=== PATIENT | female | born 1945 | race Caucasian/White ===

== ENCOUNTER → 2018-04-19 | Outpatient (CLI) | payer OTHER ==
[~2018-04-19] MED LIST: ACIDOPHILUS; ALBU90OI6 INH; ALBU90OI61 INH; AZIT500 PO; Aspir 8181 MG PO; BUME1 PO; BUME2 PO; CALCAVITD; CALCAVITD PO; CLON.1; CLON.1 PO; CLOP75 PO; DIPATR PO; ECONAZOLE 1% CREAM TOP; FISH OIL 1200 MG PO; FLUO20 PO; FLUT110OIA IH; FURO20 PO; FURO40 PO; GABA100; GABA100 PO; GABA300 PO; HYDPAM50 PO; HYDROXYZINE; INS70/30PN SC; INSDET100; INSDET100 SC; INSDET100 SQ; INSDET100 SUBQ; INSLI100I SC; INSLI100I SUBQ; INSULANI SC; K-Dur20 MEQ PO; KETO15TC TOP; LEVSOD100 PO; LOSA25 PO; METO10 PO; METO25ER PO; MORP15ER PO; MULVITB&C PO; MULVITMINF PO; OLME20 PO; OLME5TAB PO; OMEP20ER PO; Omeprazole20 M1; POTASSIUM; PRAV20 PO; PRAV40 PO; PRED10 PO; PRED20 PO; PROM25 PO; PROM25S PR; PROZAC PO; Pravachol40 MG PO; RAME8 PO; SPIR25 PO; TORSE20 PO; VIT D 1000 UNIT PO; ZOLP12.5 PO; Zofran4 MG PO
[2018-04-19 16:34] LABS: Bilirubin, Urine Neg (Neg); Blood, Urine Neg (Neg); Glucose Qualitative, Urine 3+ (Neg); Ketones, Urine 1+ (Neg); Leukocyte Esterase, Urine 2+ (Neg); Nitrite, Urine Neg (Neg); Protein, Urine 3+ (Neg); Urobilinogen, Urine NORM (Normal)
[2018-04-19 16:52] LABS: Appearance, Urine Clear (Clear); Color, Urine Yellow (P-Yellow)
[2018-04-19 16:54] LABS: Bacteria Many /hpf; Squamous Epithelial Cells Mod /hpf (Few)
== END | disposition home or self-care (01) ==
LOC: LAB SHORT 16:16 → LAB 16:16
PROVIDERS: Internal Medicine Hematology & Oncology
DX: N39.0 Urinary tract infection, site not specified (principal)
CPT/HCPCS: 81001; 87086

== ENCOUNTER → 2018-05-31 | Outpatient (CLI) | payer OTHER ==
[2018-06-01 10:28] LABS: U Amphetamine Screen Not Detected; U Barbituate Screen Not Detected; U Benzodiazapine Screen Not Detected; U Buprenorphine Screen Not Detected; U Cannabinoids Screen Not Detected; U Cocaine Screen Not Detected; U Methadone Screen Not Detected; U Methamphetamine Screen Not Detected; U Opiates Screen DETECTED; U Oxycodone Screen Not Detected; U Phencyclidine Screen Not Detected; U Propoxyphene Screen Not Detected
== END | disposition home or self-care (01) ==
LOC: LAB SHORT 16:45 → LAB 16:45
PROVIDERS: Internal Medicine Hematology & Oncology
DX: Z51.81 Encounter for therapeutic drug level monitoring (principal); F11.20 Opioid dependence, uncomplicated; Z79.899 Other long term (current) drug therapy
CPT/HCPCS: G0480

== ENCOUNTER → 2018-08-04 | Outpatient (CLI) | payer OTHER ==
[2018-08-04 12:38] LABS: Source, Urine Voided
[2018-08-04 12:57] LABS: Bilirubin, Urine Neg (Neg); Blood, Urine Neg (Neg); Glucose Qualitative, Urine Neg (Neg); Ketones, Urine Neg (Neg); Leukocyte Esterase, Urine 3+ (Neg); Nitrite, Urine Neg (Neg); Protein, Urine 3+ (Neg); Specific Gravity, Urine 1.015 (1.003-1.022); Urobilinogen, Urine NORM (Normal)
[2018-08-04 13:12] LABS: Appearance, Urine Hazy (Clear); Color, Urine Yellow (P-Yellow)
[2018-08-04 13:16] LABS: Red Blood Cells, Urine 0-2 /hpf (0-2)
[2018-08-04 13:17] LABS: Bacteria Mod /hpf; Squamous Epithelial Cells Mod /hpf (Few)
[2018-08-04 13:41] LABS: U Amphetamine Screen Not Detected; U Barbituate Screen Not Detected; U Benzodiazapine Screen Not Detected; U Buprenorphine Screen Not Detected; U Cannabinoids Screen Not Detected; U Cocaine Screen Not Detected; U Methadone Screen Not Detected; U Methamphetamine Screen Not Detected; U Opiates Screen DETECTED; U Oxycodone Screen Not Detected; U Phencyclidine Screen Not Detected; U Propoxyphene Screen Not Detected
== END | disposition home or self-care (01) ==
LOC: LAB SHORT 12:35 → LAB 12:35
PROVIDERS: Internal Medicine Hematology & Oncology
DX: Z51.81 Encounter for therapeutic drug level monitoring (principal); N39.0 Urinary tract infection, site not specified; Z79.899 Other long term (current) drug therapy
CPT/HCPCS: 81001; 87086

== ENCOUNTER 2019-01-19 09:03 | Day surgery (SDC) | payer OTHER ==
[~2019-01-19] VITALS: Ht 165.1 cm; Wt 82.9 kg
[~2019-01-19 09:03] MED LIST changes: +ATEN25 PO; +B-COMPLEX WITH1 EAC1 PO; +Humalog Mi100 UNIT/4; +Hydroxyzine HCl50 MG; +LOSA50 PO; +Promethazine12.5 M1 PO; +TOUJEO SOL300 UNIT/1; +VITAMIN D35000 UNIT PO
[2019-01-19] MEDS ORDERED: MORP15ER (09:34)
== END 2019-01-19 11:44 | disposition home or self-care (01) ==
LOC: ORSCSDS 09:03
PROVIDERS: Internal Medicine Gastroenterology
PROC: 0DB98ZX Excision of Duodenum, Via Natural or Artificial Opening Endoscopic, Diagnostic (ICD-10-PCS; principal; 2019-01-19 10:15)
PROC: 0DBE8ZX Excision of Large Intestine, Via Natural or Artificial Opening Endoscopic, Diagnostic (ICD-10-PCS; principal; 2019-01-19 10:15)
PROC: 0DBL8ZX Excision of Transverse Colon, Via Natural or Artificial Opening Endoscopic, Diagnostic (ICD-10-PCS; principal; 2019-01-19 10:15)
PROC: 0DB58ZX Excision of Esophagus, Via Natural or Artificial Opening Endoscopic, Diagnostic (ICD-10-PCS; principal; 2019-01-19 10:15)
PROC: 0DB68ZX Excision of Stomach, Via Natural or Artificial Opening Endoscopic, Diagnostic (ICD-10-PCS; principal; 2019-01-19 10:15)
DX: R19.7 Diarrhea, unspecified (principal); D12.3 Benign neoplasm of transverse colon; R63.4 Abnormal weight loss; R11.2 Nausea with vomiting, unspecified; B37.81 Candidal esophagitis; K57.30 Diverticulosis of large intestine without perforation or abscess without bleeding; E11.40 Type 2 diabetes mellitus with diabetic neuropathy, unspecified; I25.10 Atherosclerotic heart disease of native coronary artery without angina pectoris; E78.5 Hyperlipidemia, unspecified; I10 Essential (primary) hypertension; G47.33 Obstructive sleep apnea (adult) (pediatric); E11.59 Type 2 diabetes mellitus with other circulatory complications; Z86.73 Personal history of transient ischemic attack (TIA), and cerebral infarction without residual deficits; Z79.899 Other long term (current) drug therapy; Z79.4 Long term (current) use of insulin; Z79.82 Long term (current) use of aspirin
CPT/HCPCS: 82947; 88305; 88342; J2704; J7120

== ENCOUNTER → 2019-05-15 | Outpatient (CLI) | payer OTHER ==
[~2019-05-15] MED LIST changes: +MORP15ER
[2019-05-22 12:44] LABS: FATS, NEUTRAL Normal (.); FATS, TOTAL Normal (.)
== END | disposition home or self-care (01) ==
LOC: LAB SHORT 13:25 → OLS 13:25 → LAB FUT 05-15 11:45
PROVIDERS: Internal Medicine Gastroenterology
DX: R63.4 Abnormal weight loss (principal); R19.7 Diarrhea, unspecified
CPT/HCPCS: 82656; 82705; 84302; 84999

== ENCOUNTER → 2019-05-15 | Outpatient (CLI) | payer OTHER ==
[2019-05-16 15:22] LABS: Adenovirus F 40/41 Not Detected (NOT DETECT); Astrovirus Not Detected (NOT DETECT); Campylobacter Sp Not Detected (NOT DETECT); Cryptosporidium Not Detected (NOT DETECT); Cyclospora Cayetanensis Not Detected (NOT DETECT); E. Coli O157 Not Detected (NOT DETECT); Entamoeba Histolytica Not Detected (NOT DETECT); Enteroaggregative E. coli-EAEC Not Detected (NOT DETECT); Enteropathogenic E. coli-EPEC Not Detected (NOT DETECT); Enterotoxigenic E. coli-ETEC Not Detected (NOT DETECT); Giardia Lamblia Not Detected (NOT DETECT); Norovirus GI/GII Not Detected (NOT DETECT); Plesiomonas Shigelloides Not Detected (NOT DETECT); Rotavirus A Not Detected (NOT DETECT); Salmonella Sp Not Detected (NOT DETECT); Sapovirus Not Detected (NOT DETECT); Shiga Toxin-prod E. coli-STEC Not Detected (NOT DETECT); Shigella/Enteroin E. coli-EIEC Not Detected (NOT DETECT); Vibrio Cholerae Not Detected (NOT DETECT); Vibrio Sp Not Detected (NOT DETECT); Yersinia Enterocolitica Not Detected (NOT DETECT)
== END ==
LOC: LAB FUT 14:10 → OLS 20:40 → LAB SHORT 20:40
PROVIDERS: Internal Medicine Gastroenterology
DX: R19.7 Diarrhea, unspecified (principal); R63.4 Abnormal weight loss
CPT/HCPCS: 0097U

== ENCOUNTER → 2019-05-21 | Outpatient (CLI) | payer OTHER | END | disposition home or self-care (01) | LOC: LAB SHORT 05-18 03:00 → OLS 03:00 → LAB SHORT 03:00 | PROVIDERS: Internal Medicine Gastroenterology | DX: R19.7 Diarrhea, unspecified (principal); R63.4 Abnormal weight loss | CPT/HCPCS: 82710 ==

== ENCOUNTER 2019-06-21 10:57 | Inpatient (IN) | payer OTHER ==
[~2019-06-21] VITALS: Ht 167.6 cm; Wt 84.1 kg
[~2019-06-21 10:57] MED LIST changes: +B Complex-Foli1 EACH PO; -B-COMPLEX WITH1 EAC1 PO; -Humalog Mi100 UNIT/4; +Humalog100 UNIT/1 SC; -TOUJEO SOL300 UNIT/1; +TOUJEO SOL300 UNIT/1 SC; +VITAMIN D31000 UNI1 PO; -VITAMIN D35000 UNIT PO
[2019-06-21 11:27] LABS: BASOPHILS ABSOLUTE AUTO 0.18 K/mm3 (0.00-0.23); BASOPHILS PERCENT AUTO 1 % (0-2); EOSINOPHILS ABSOLUTE AUTO 0.36 K/mm3 (0.00-0.68); EOSINOPHILS PERCENT AUTO 2 % (0-6); Hematocrit 50.7 % (33.0-51.0); Hemoglobin 16.7 g/dL (11.5-16.0); IMMATURE GRAN ABSOLUTE AUTO 0.05 K/mm3 (0.00-0.10); IMMATURE GRAN PERCENT AUTO 0 % (0-1); LYMPHOCYTES ABSOLUTE AUTO 4.69 K/mm3 (0.84-5.20); LYMPHOCYTES PERCENT AUTO 29 % (21-46); MONOCYTES ABSOLUTE AUTO 1.12 K/mm3 (0.16-1.47); MONOCYTES PERCENT AUTO 7 % (4-13); Mean Corpuscular HGB 29.6 pg (26.0-34.0); Mean Corpuscular HGB Conc 32.9 g/dL (31.5-36.5); Mean Corpuscular Volume 90 fL (80-100); Mean Platelet Volume 11.2 fL (9.1-12.4); NEUTROPHILS ABSOLUTE AUTO 9.66 K/mm3 (1.96-9.15); NEUTROPHILS PERCENT AUTO 60 % (41-73); Platelet Count 494 K/mm3 (150-400); RDW Coefficient Variation 13.6 % (11.7-14.2); RDW Standard Deviation 45.1 fL (35.1-46.3); Red Blood Cell Count 5.64 M/mm3 (3.80-5.20); White Blood Cell Count 16.06 K/mm3 (4.00-11.30)
[2019-06-21 12:44] LABS: Alanine Aminotransfer (ALT/SGP 13 U/L (12-78); Albumin, Blood 2.8 g/dL (3.4-5.0); Albumin/Globulin Ratio 0.7 (0.8-1.8); Alk Phos 82 U/L (50-136); Anion Gap 8 mmol/L (6-16); Aspartate Aminotrans (AST/SGOT 19 U/L (12-37); Bilirubin, Total 0.5 mg/dL (0.1-1.0); Blood Urea Nitrogen 31 mg/dL (8-24); Bun/Creatinine Ratio 35.9 (12.0-20.0); CO2, Blood 23 mmol/L (21-32); Calcium, Blood 8.2 mg/dL (8.5-10.1); Chloride, Blood 110 mmol/L (98-108); Creatinine, Blood 0.86 mg/dL (0.40-1.00); Globulin, Blood 3.9 g/dL (2.2-4.0); Glomerular Filtration Rate >60 (60-); Glucose, Blood 178 mg/dL (70-99); Potassium, Blood 3.8 mmol/L (3.5-5.5); Sodium, Blood 141 mmol/L (136-145); Total Protein, Blood 6.7 g/dL (6.4-8.2); Troponin I 0.159 ng/mL (0.000-0.040)
[2019-06-21 15:15] LABS: Source, Urine Catheter
[2019-06-21 15:19] LABS: Bilirubin, Urine Neg (Neg); Blood, Urine 3+ (Neg); Glucose Qualitative, Urine 4+ (Neg); Ketones, Urine 2+ (Neg); Leukocyte Esterase, Urine Neg (Neg); Nitrite, Urine Neg (Neg); Protein, Urine 3+ (Neg); Specific Gravity, Urine 1.015 (1.003-1.022); Urobilinogen, Urine NORM (Normal)
[2019-06-21 15:30] LABS: Appearance, Urine Clear (Clear); Color, Urine Yellow (P-Yellow)
[2019-06-21 15:32] LABS: White Blood Cells, Urine 0-2 /hpf (0-5)
[2019-06-21 15:34] LABS: Amorphous Mod (0-Heavy)
[2019-06-21 15:35] LABS: Bacteria Few /hpf; Squamous Epithelial Cells Few /hpf (Few)
[2019-06-21] MEDS ORDERED: CLON.1 PO (15:57)
[2019-06-21] MEDS ORDERED: ZENPEP DR 40,01 EACH PO (15:57)
[2019-06-21] MEDS ORDERED: NEURONTIN300 MG PO (15:58)
[2019-06-21] MEDS ORDERED: CITALOPRAM HBR10 MG PO (15:58)
[2019-06-21] MEDS ORDERED: ATENOLOL25 MG PO (16:00)
[2019-06-21] MEDS ORDERED: SPIRONOLACTONE25 MG PO (16:02)
[2019-06-21] MEDS ORDERED: Oyster Shell C500 MG PO (18:34)
[2019-06-21] MEDS ORDERED: VITAMIN B IM (18:35)
--- NOTE | 2019-06-21 19:53 | NUR ---
SHE ARRIVED TO 304 FROM THE E.R. AT 1725. SHE WAS HEEVING AND VOMITING ON ARRIVAL. EMESIS ABOUT 150 MLS. HER IS WITH HER. SHE IS PALE AND A LITTLE ANXIOUS. HER TOO IS ANXIOUS. IVF'S INFUSING AT 75/HR. CBG CHECKED ABOUT 6 PM. IT WAS 278. NO INSULIN AVAILABLE YET. I SENT FOR IT. COMPAZINE GIVEN FOR THE N/V. METOPROLOL GIVEN FOR THE HIGH BP. NO FEVER. ADMIT PROCESS CONTINUED BY THE PROCEDURE NURSE. CL DIET PRESENT BUT SHE IS NOT INTERESTED. REPORT WAS GIVEN TO THE MOTOR GENERATOR SET OPERATOR RN.
[2019-06-22 05:28] LABS: BASOPHILS ABSOLUTE AUTO 0.12 K/mm3 (0.00-0.23); BASOPHILS PERCENT AUTO 1 % (0-2); EOSINOPHILS PERCENT AUTO 0 % (0-6); Hematocrit 51.3 % (33.0-51.0); Hemoglobin 16.4 g/dL (11.5-16.0); IMMATURE GRAN PERCENT AUTO 1 % (0-1); LYMPHOCYTES ABSOLUTE AUTO 1.68 K/mm3 (0.84-5.20); LYMPHOCYTES PERCENT AUTO 9 % (21-46); MONOCYTES PERCENT AUTO 5 % (4-13); Mean Corpuscular HGB 29.1 pg (26.0-34.0); Mean Corpuscular Volume 91 fL (80-100); Mean Platelet Volume 11.5 fL (9.1-12.4); NEUTROPHILS ABSOLUTE AUTO 16.72 K/mm3 (1.96-9.15); NEUTROPHILS PERCENT AUTO 85 % (41-73); Platelet Count 436 K/mm3 (150-400); RDW Coefficient Variation 14.2 % (11.7-14.2); RDW Standard Deviation 47.9 fL (35.1-46.3); Red Blood Cell Count 5.64 M/mm3 (3.80-5.20); White Blood Cell Count 19.62 K/mm3 (4.00-11.30)
[2019-06-22 05:59] LABS: Alanine Aminotransfer (ALT/SGP 15 U/L (12-78); Albumin, Blood 2.9 g/dL (3.4-5.0); Albumin/Globulin Ratio 0.7 (0.8-1.8); Alk Phos 96 U/L (50-136); Anion Gap 14 mmol/L (6-16); Aspartate Aminotrans (AST/SGOT 61 U/L (12-37); Bilirubin, Total 0.7 mg/dL (0.1-1.0); Blood Urea Nitrogen 27 mg/dL (8-24); Bun/Creatinine Ratio 30.2 (12.0-20.0); CO2, Blood 20 mmol/L (21-32); Chloride, Blood 105 mmol/L (98-108); Globulin, Blood 4.3 g/dL (2.2-4.0); Glomerular Filtration Rate >60 (60-); Glucose, Blood 493 mg/dL (70-99); Magnesium, Blood 1.8 mg/dL (1.6-2.4); Potassium, Blood 4.1 mmol/L (3.5-5.5); Sodium, Blood 139 mmol/L (136-145); Total Protein, Blood 7.2 g/dL (6.4-8.2)
--- NOTE | 2019-06-22 06:39 | NUR ---
SHIFT SUMMARY PT IS A 74 Y/O FEMALE, ADMITTED FOR INTRACTABLE N/V. SHE IS A&O X 3, AND A 1PA UP TO THE [facility]. PT REPORTED NAUSEA THROUGHOUT THE NIGHT, WITH MODERATE RELIEF FROM PRN REGLAN. THE PT DID HAVE SOME EPISODES OF DRY HEAVING WITH SMALL AMOUNTS OF SPUTUM COUGHED UP. THE PT WAS ALSO VERY ANXIOUS DURING THE NIGHT, REPEATING THAT SHE WAS "WITHDRAWING FROM MY MORPHINE" THOUGH REFUSED HER BEDTIME MEDS. AFTER CONSULTING WITH HOSPITALIST DR REDDY, IV MORPHINE WAS ORDERED. THE DOSE WAS INCREASED AND A OT DOSE OF IV ATIVAN ORDERED WHEN THE PT BECAME INCREASINGLY ANXIOUS AND DISTRESSED, CRYING BECAUSE SHE "COULDN'T TAKE IT ANY MORE". HOWEVER, THE PT FELL ASLEEP BEFORE FURTHER MEDS COULD BE GIVEN. PT'S BP WAS ELEVATED THROUGH THE NIGHT, IN THE 170S SYSTOLICALLY. HR WAS ALSO ELEVATED, IN THE 110S THROUGH THE NIGHT PER HAY CHOPPER. ALL OTHER VITALS STABLE. NO OTHER ACUTE CHANGES IN PT CONDITION NOTED. WILL CONTINUE TO MONITOR AND TREAT PER EMAR UNTIL HAND OFF TO DAY SHIFT RN.
[2019-06-22 13:27] LABS: Glucose, Blood 673 mg/dL (70-99)
[2019-06-22 14:08] LABS: BASOPHILS ABSOLUTE AUTO 0.12 K/mm3 (0.00-0.23); BASOPHILS PERCENT AUTO 0 % (0-2); EOSINOPHILS PERCENT AUTO 0 % (0-6); Hematocrit 53.8 % (33.0-51.0); IMMATURE GRAN ABSOLUTE AUTO 0.25 K/mm3 (0.00-0.10); IMMATURE GRAN PERCENT AUTO 1 % (0-1); LYMPHOCYTES ABSOLUTE AUTO 1.71 K/mm3 (0.84-5.20); LYMPHOCYTES PERCENT AUTO 6 % (21-46); MONOCYTES ABSOLUTE AUTO 1.78 K/mm3 (0.16-1.47); MONOCYTES PERCENT AUTO 7 % (4-13); Mean Corpuscular HGB 29.6 pg (26.0-34.0); Mean Corpuscular HGB Conc 31.6 g/dL (31.5-36.5); Mean Platelet Volume 11.3 fL (9.1-12.4); NEUTROPHILS ABSOLUTE AUTO 23.25 K/mm3 (1.96-9.15); NEUTROPHILS PERCENT AUTO 86 % (41-73); Platelet Count 399 K/mm3 (150-400); RDW Coefficient Variation 14.6 % (11.7-14.2); Red Blood Cell Count 5.74 M/mm3 (3.80-5.20); White Blood Cell Count 27.11 K/mm3 (4.00-11.30)
[2019-06-22 14:10] LABS: Mean Corpuscular Volume 94 fL (80-100)
[2019-06-22 14:39] LABS: Alanine Aminotransfer (ALT/SGP 22 U/L (12-78); Albumin, Blood 2.8 g/dL (3.4-5.0); Albumin/Globulin Ratio 0.6 (0.8-1.8); Alk Phos 102 U/L (50-136); Anion Gap 10 mmol/L (6-16); Aspartate Aminotrans (AST/SGOT 91 U/L (12-37); Bilirubin, Total 0.7 mg/dL (0.1-1.0); Blood Urea Nitrogen 34 mg/dL (8-24); Bun/Creatinine Ratio 34.7 (12.0-20.0); CO2, Blood 21 mmol/L (21-32); Chloride, Blood 101 mmol/L (98-108); Creatinine, Blood 0.98 mg/dL (0.40-1.00); Globulin, Blood 4.4 g/dL (2.2-4.0); Glomerular Filtration Rate 59 (60-); Glucose, Blood 701 mg/dL (70-99); Sodium, Blood 132 mmol/L (136-145); Total Protein, Blood 7.2 g/dL (6.4-8.2)
--- NOTE | 2019-06-22 16:08 | NUR ---
I HAVE JUST TRANSFERRED HER TO ICU 6 FOR AN INSULIN DRIP AND CLOSER MONITORING. LATEST GLU LEVEL WAS 701. SHE RECEIVED LANTUS INSULIN THIS AM AND 28 UNITS NOVOLOG INSULIN TWICE TODAY. GLUC LEVEL CONTINUED TO STEADILY CLIMB. ANION GAP WNL. WBC'S CLIMBED TO 27,000. NO FEVER. HYPERTENSION CONTROLLED. SINUS TACH 111. SHE CONTINUED TO HAVE NAUSEA BUT LITTLE EMESIS. IVF'S INFUSING. AMBULATES TO BATHROOM WITH SBA. NO BM TODAY. RESP PANEL SWAB DONE JUST BEFORE TRANSFER. REPORT GIVEN TO MCKENNA GARCIA. TOOK HER PERSONAL BELONGINGS OUT TO THE CAR. HE IS WITH HER IN ICU.
--- NOTE | 2019-06-22 16:15 | NUR ---
ASSUMPTION OF CARE PATIENT ARRIVED TO UNIT AT 1545. PATIENT ALERT AND ORIENTED X 4, LETHARGIC. ANXIOUS WHEN AWAKE. PATIENT SBA TO ICU BED FROM MED BED. PATIENT STATES SHE IS SLIGHTLY WEAK. PATIENT AFEBRILE. PATIENT HAS NO COMPLAINTS OF PAIN. PATIENT INCREASED FROM RA TO 2 L NC TO KEEP SATS 90% AND GREATER. PATIENT IN SR, HR IN THE 90S. PATIENT HYPERTENSIVE WITH SBP IN LOW 200S. SCDS PLACED. PATIENT STATES THAT SHE HAS CONSISTENTLY HAD NAUSEA T/O THE DAY. LAST BM ON THE . PATIENT NPO EXCEPT MEDS AND ICE CHIPS. WNL. SKIN APPEARS WNL. PATIENT ABLE TO REPOSITION SELF IN BED. INSULIN DRIP TO BE STARTED WELL NS KCL 20 MEQ AT 300 MLS/ HOUR. PATIENT AND ORIENTED TO UNIT, ROOM AND CALL SYSTEM. BED LOW, CALL LIGHT IN REACH. WILL CONTINUE TO MONITOR PATIENT FREQUENTLY THROUGHOUT SHIFT.
[2019-06-22 16:20] LABS: BASOPHILS ABSOLUTE AUTO 0.13 K/mm3 (0.00-0.23); BASOPHILS PERCENT AUTO 0 % (0-2); EOSINOPHILS PERCENT AUTO 0 % (0-6); Hemoglobin 15.5 g/dL (11.5-16.0); IMMATURE GRAN ABSOLUTE AUTO 0.19 K/mm3 (0.00-0.10); IMMATURE GRAN PERCENT AUTO 1 % (0-1); LYMPHOCYTES ABSOLUTE AUTO 1.89 K/mm3 (0.84-5.20); LYMPHOCYTES PERCENT AUTO 7 % (21-46); MONOCYTES PERCENT AUTO 7 % (4-13); Mean Corpuscular HGB 29.7 pg (26.0-34.0); Mean Corpuscular HGB Conc 31.6 g/dL (31.5-36.5); Mean Corpuscular Volume 94 fL (80-100); Mean Platelet Volume 11.7 fL (9.1-12.4); NEUTROPHILS ABSOLUTE AUTO 24.78 K/mm3 (1.96-9.15); NEUTROPHILS PERCENT AUTO 86 % (41-73); Platelet Count 428 K/mm3 (150-400); RDW Coefficient Variation 14.7 % (11.7-14.2); Red Blood Cell Count 5.22 M/mm3 (3.80-5.20); White Blood Cell Count 28.89 K/mm3 (4.00-11.30)
--- NOTE | 2019-06-22 16:51 | NUR ---
ISTRATE CALLED AND INFORMED OF HTN. INFORMED THAT PRN HYDRALAZINE GIVEN WITH NO EFFECT. STATED HE WOULD PUT ORDERS IN.
[2019-06-22 17:20] LABS: Bun/Creatinine Ratio 37.2 (12.0-20.0); Calcium, Blood 8.7 mg/dL (8.5-10.1); Creatinine, Blood 0.99 mg/dL (0.40-1.00); Phosphorus, Blood 4.7 mg/dL (2.5-4.9); Potassium, Blood 5.2 mmol/L (3.5-5.5)
[2019-06-22 17:23] LABS: Adenovirus Not Detected (NOT DETECT); Bordetella pertussis Not Detected (NOT DETECT); Chlamydophila pneumoniae Not Detected (NOT DETECT); Coronavirus 229E Not Detected (NOT DETECT); Coronavirus HKU1 Not Detected (NOT DETECT); Coronavirus NL63 Not Detected (NOT DETECT); Coronavirus OC43 Not Detected (NOT DETECT); Human Metapneumovirus Not Detected (NOT DETECT); Human Rhinovirus/Enterovirus Not Detected (NOT DETECT); Influenza A Not Detected (NOT DETECT); Influenza A/2009-H1 Not Detected (NOT DETECT); Influenza A/H1 Not Detected (NOT DETECT); Influenza A/H3 Not Detected (NOT DETECT); Influenza B Not Detected (NOT DETECT); Mycoplasma pneumoniae Not Detected (NOT DETECT); Parainfluenza Virus 1 Not Detected (NOT DETECT); Parainfluenza Virus 2 Not Detected (NOT DETECT); Parainfluenza Virus 3 Not Detected (NOT DETECT); Parainfluenza Virus 4 Not Detected (NOT DETECT); Respiratory Syncytial Virus Not Detected (NOT DETECT)
--- NOTE | 2019-06-22 17:31 | NUR ---
DR. DAVIS IN ROOM TO SEE PATIENT. UPDATED. ORDERS RECEIVED.
[2019-06-22 17:32] LABS: Magnesium, Blood 1.9 mg/dL (1.6-2.4)
[2019-06-22 17:34] LABS: Thyroid Stimulating Hormone 1.92 uIU/mL (0.360-4.800)
--- NOTE | 2019-06-22 17:41 | NUR ---
Initial spiritual care note: I met with Mrs. Murray and her , George, at bedside. Both were pleasant and dismissive. Pt smiles easily and denied needs/concerns. Advised box office manager services would remain available.
[2019-06-22 17:52] LABS: Base Excess Venous -13.2 mmol/L; Bicarbonate Venous 16.3 mmol/L (24.0-30.0); PCO2 Venous 25 mmHg (38-42); PO2 Venous 155 mmHg (38-42); pH Blood Venous 7.32 (7.34-7.37)
--- NOTE | 2019-06-22 18:32 | NUR ---
DR. JORGE CALLED AND INFORMED OF CONTINUED HTN WITH SBP IN THE 190S. NEW ORDER OBTAINED.
--- NOTE | 2019-06-22 18:57 | NUR ---
SHIFT SUMMARY PATIENT HAS BEEN SLEEPING MOST OF THE TIME SINCE COMING TO UNIT. PATIENT REMAINS ALERT AND ORIENTED, AFEBRILE. PATIENT HAS HAD NO COMPLAINTS OF PAIN. PATIENT WEAK, SBA. PATIENT REMAINS SATTING 90% AND GREATER ON 2 L NC. PATIENT NORMALLY RA. PATIENT HAS REMAINED IN SR, HR IN THE 90S. SBP HAS RANGED FROM [address] JORGE CALLED ABOUT HTN. PATIENT HAS BEEN GIVEN PRN HYDRALAZINE, LABETALOL, CLONIDINE. PATIENT GIVEN PRN ZOFRAN OT FOR COMPLAINT OF NAUSEA. PATIENT HAS NOT VOIDED SINCE ARRIVING TO UNIT. NS KCL 20 MEQ INFUSING AT 300 MLS/ HOUR, INSULIN DRIP AT 4 UNITS/ HOUR, NS TKO. AWAITING GLUCOSE RESULTS FROM LAB. LAST BS 759. NO OTHER ACUTE CHANGES TO NOTE ON AT THIS TIME. BED LOW, CALL LIGHT IN REACH. REPORT WILL BE GIVEN TO ASSUMING ENGRAVER AUTOMATIC NURSE SHORTLY.
[2019-06-22 19:19] LABS: Glucose, Blood 634 mg/dL (70-99)
--- NOTE | 2019-06-22 19:24 | NUR ---
ASSUMED CARE AT 1900 FROM MCKENNA GARCIA. BEDSIDE REPORT DONE WITH AND PT. I-TRACE PERFORMED. PT IS SLEEPING, BUT ROUSABLE TO LOUD VOICE. 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
[2019-06-22 21:55] LABS: Bun/Creatinine Ratio 33.6 (12.0-20.0); Calcium, Blood 8.5 mg/dL (8.5-10.1); Creatinine, Blood 1.1 mg/dL (0.40-1.00); Phosphorus, Blood 3.3 mg/dL (2.5-4.9)
[2019-06-22 23:32] LABS: Bun/Creatinine Ratio 30.3 (12.0-20.0); Calcium, Blood 7.8 mg/dL (8.5-10.1); Creatinine, Blood 1.19 mg/dL (0.40-1.00); Phosphorus, Blood 2.5 mg/dL (2.5-4.9); Potassium, Blood 4.3 mmol/L (3.5-5.5)
[2019-06-23 01:39] LABS: Bun/Creatinine Ratio 27.8 (12.0-20.0); Calcium, Blood 7.6 mg/dL (8.5-10.1); Creatinine, Blood 1.33 mg/dL (0.40-1.00); Phosphorus, Blood 2.2 mg/dL (2.5-4.9); Potassium, Blood 4.4 mmol/L (3.5-5.5)
[2019-06-23 04:21] LABS: BASOPHILS ABSOLUTE AUTO 0.11 K/mm3 (0.00-0.23); BASOPHILS PERCENT AUTO 0 % (0-2); EOSINOPHILS PERCENT AUTO 0 % (0-6); Hematocrit 45.4 % (33.0-51.0); Hemoglobin 14.5 g/dL (11.5-16.0); IMMATURE GRAN ABSOLUTE AUTO 0.28 K/mm3 (0.00-0.10); IMMATURE GRAN PERCENT AUTO 1 % (0-1); LYMPHOCYTES ABSOLUTE AUTO 2.96 K/mm3 (0.84-5.20); LYMPHOCYTES PERCENT AUTO 11 % (21-46); MONOCYTES ABSOLUTE AUTO 2.19 K/mm3 (0.16-1.47); MONOCYTES PERCENT AUTO 8 % (4-13); Mean Corpuscular HGB 29.6 pg (26.0-34.0); Mean Corpuscular HGB Conc 31.9 g/dL (31.5-36.5); Mean Corpuscular Volume 93 fL (80-100); Mean Platelet Volume 11.1 fL (9.1-12.4); NEUTROPHILS ABSOLUTE AUTO 21.97 K/mm3 (1.96-9.15); NEUTROPHILS PERCENT AUTO 80 % (41-73); Platelet Count 375 K/mm3 (150-400); RDW Coefficient Variation 14.7 % (11.7-14.2); RDW Standard Deviation 50.7 fL (35.1-46.3); White Blood Cell Count 27.51 K/mm3 (4.00-11.30)
[2019-06-23 04:42] LABS: Albumin, Blood 2.1 g/dL (3.4-5.0); Albumin/Globulin Ratio 0.6 (0.8-1.8); Bilirubin, Total 0.6 mg/dL (0.1-1.0); Bun/Creatinine Ratio 29.5 (12.0-20.0); Calcium, Blood 7.7 mg/dL (8.5-10.1); Creatinine, Blood 1.22 mg/dL (0.40-1.00); Globulin, Blood 3.5 g/dL (2.2-4.0); Magnesium, Blood 1.7 mg/dL (1.6-2.4); Phosphorus, Blood 2.4 mg/dL (2.5-4.9); Potassium, Blood 5.3 mmol/L (3.5-5.5); Total Protein, Blood 5.6 g/dL (6.4-8.2)
[2019-06-23 04:59] LABS: Troponin I 47.8 ng/mL (0.000-0.040)
--- NOTE | 2019-06-23 05:39 | NUR ---
RECEIVED CRITICAL TROPONIN OF 47.8 FROM LAB. PT'S PREVIOUS HAVE BEEN IN 0.1 RANGE, SO IMMEDIATELY ASSESSED PT. SHE STATES NO CHEST PAIN OF ANY KIND, NO INDEGESTION, NO OTHER GI UPSET, NO BACK PAIN. TELE STRIPS HAVE HAD NO CHANGES. DR. AREVALO NOTIFIED. RECEIVED ORDER FOR A STAT REDRAW, AND DOCTOR STATED HE WOULD COME IN. IN MEANTIME, NEW EKG DONE UNDER MORNING EKG ORDER. NEW EKG ALSO SHOWS NO CHANGES FROM PREVIOUS IN CHART. CHARGE NURSE DENISA GUDINO.
--- NOTE | 2019-06-23 06:17 | NUR ---
PT SLEPT MOST OF EVENING AFTER WENT HOME. PT HAS HAD NO COMPLAINTS OF NAUSEA. INSULIN GTT CURRENTLY ON STANDBY. PT HAS BEEN STEADY WHILE WALKING TO TOILET AND BACK.
--- NOTE | 2019-06-23 06:38 | NUR ---
RECEIVED NEW CRITICAL ON REPEAT TROPONIN. CRITICAL CALLED, RECEIVED ORDER FOR NEW EKG AT LEFT LATERAL ANGLE, AND TO START HEPARIN GTT WITH BOLUS PER PROTOCOL. PT CURRENTLY NO PAIN AND IS USING TOILET.
[2019-06-23 07:54] LABS: International Normalized Ratio 1.19; Prothrombin Time Results 12.6 Sec (9.7-11.5)
--- NOTE | 2019-06-23 07:55 | NUR ---
0700-ASSUMED CARE OF PT. PT IS ALERT AND ORIENTED. DENIES CHEST PAIN OR REFERRED PAIN AT THIS TIME. 0710-DR. LUNA CAME BY AND TALKED TO PATIENT REGARDING ANGIOGRAM PROCEDURE. 0735-PT TAKEN TO MULTI LINE CLAIMS ADJUSTER AT THIS TIME.
[2019-06-23 07:57] LABS: Bun/Creatinine Ratio 28.8 (12.0-20.0); Calcium, Blood 8.1 mg/dL (8.5-10.1); Creatinine, Blood 1.25 mg/dL (0.40-1.00); Phosphorus, Blood 2.7 mg/dL (2.5-4.9); Potassium, Blood 4.9 mmol/L (3.5-5.5)
--- NOTE | 2019-06-23 10:47 | NUR ---
0910-PT BACK FROM THE TRIAL PARALEGAL. PT IS DROWSY BUT OPENS EYES TO VOICE, ANSWERING QUESTIONS APPROPRIATELY. FOLLOWING DIRECTIONS. PT STATED "FEELS SICK TO MY STOMACH" AFTER TAKING PLAVIX. AFEBIRLE. PT WENT BACK TO SLEEP. PT RECEIVED FENTANYL AND VERSED DURING THE PROCEDURE IN THE TRIAL PARALEGAL. TR BAND TO R RADIAL INFLATED WITH 12 CC AIR. PT DENIES NUMBNESS/PAIN TO R FINGERS. GOOD CAP REFILL. 0903-PT WAS MEDICATED WITH COMPAZINE. PT COMPLAINTS OF NAUSEA. PT WAS ASKING FOR MORPHINE, ASKED PT IF SHE'S IN PAIN, PT DENIED PAIN BUT IS AFRAID OF MORPHINE "WITHDRAWAL". EXPLAINED TO PT AND THAT PT HAS RECEIVED FENTANYL IN THE TRIAL PARALEGAL AND WILL MEDICATE PATIENT WITH MORPHINE WHEN SHE STARTS FEELING PAINFUL.
[2019-06-23 13:23] LABS: Albumin, Blood 2.4 g/dL (3.4-5.0); Albumin/Globulin Ratio 0.6 (0.8-1.8); Bilirubin, Total 0.6 mg/dL (0.1-1.0); Calcium, Blood 8.4 mg/dL (8.5-10.1); Creatinine, Blood 1.12 mg/dL (0.40-1.00); Globulin, Blood 4.1 g/dL (2.2-4.0); Total Protein, Blood 6.5 g/dL (6.4-8.2)
--- NOTE | 2019-06-23 14:44 | NUR ---
1400-STARTED DEFLATING TR BAND 2CC AT A TIME. CURRENTLY AIR IN TR BAND HAS 4 CC LEFT.
--- NOTE | 2019-06-23 14:50 | NUR ---
CALLED DR. LUNA FOR CLARIFICATION WHETHER TO START HEPARIN DRIP OR NOT. INFORMED HIM ALSO REGARDING PT'S ELEVATED BLOOD PRESSURE DESPTIE 4 ANTIHYPERTENSIVE MEDICATIONS PT HAS RECEIVED. ORDERS RECEIVED.
--- NOTE | 2019-06-23 15:41 | NUR ---
R RADIAL SITE, TR BAND WAS REINFLATED TO 8 CC DUE TO HEMATOMA NOTED AND SLIGHT OOZE FROM THE PUNCTURE SITE.
--- NOTE | 2019-06-23 16:28 | NUR ---
1615-NOTED PT WAS GETTING MORE AND MORE SLEEPY AND NEEDED TO BE SHAKEN TO AROUSE AND STATES " I HEAR YOU" BUT CANNOT STAY AWAKE AND MAKE A CONVERSATION. DR. JORGE WAS CALLED REGARDING PT'S DECREASE LEVEL OF CONSCIOUNESS. NOTED TO HAVE SLEEP APNEA WELL. ORDERS RECEIVED. 1628-DR. LUNA WAS NOTIFIED REGARDING PT'S RESPONSE TO THE CARVEDILOL. INFORMED HIM WELL REGARDING REINFLATION OF TR BAND DUE TO HEMATOMA AND SLIGHT OOZE NOTED TO THE PUNCTURE SITE. ORDERS RECEIVED.
[2019-06-23 16:45] LABS: pH Blood Arterial 7.43 (7.35-7.45)
[2019-06-23 16:47] LABS: PO2 Arterial 88.6 mmHg (80-100)
--- NOTE | 2019-06-23 17:26 | NUR ---
PT'S MENTATION HAS IMPROVED A LITTLE. MOVES ALL EXTREMETIES AND FOLLOWING COMMANDS. PT IS ORIENTED WHEN AWAKE. DR. JORGE WAS NOTIFIED REGARDING ABG AND CT SCAN RESULT, UPDATED HIM OF PT'S STATUS.
--- NOTE | 2019-06-23 17:45 | NUR ---
STARTED TO DEFLATE TR BAND AT THIS TIME. DOWN TO 7 CC FROM 8 CC. BRUISING, HEMATOMA HAS NOT PROGRESSED.
[2019-06-23 17:59] LABS: Source, Urine Catheter
[2019-06-23 18:03] LABS: Appearance, Urine Hazy (Clear); Bilirubin, Urine Neg (Neg); Blood, Urine 1+ (Neg); Color, Urine Yellow (P-Yellow); Glucose Qualitative, Urine 4+ (Neg); Ketones, Urine 2+ (Neg); Leukocyte Esterase, Urine Neg (Neg); Nitrite, Urine Neg (Neg); Protein, Urine 3+ (Neg); Urobilinogen, Urine NORM (Normal)
--- NOTE | 2019-06-23 18:20 | NUR ---
SHIFT SUMMARY: TR BAND STILL INFLATED AT THIS TIME WITH 6 CC AIR LEFT IN TR BAND. R RADIAL STABLE. PT IS AWAKE, ALERT AND ORIENTED. PT STATED SHE IS READY FOR DINNER. IS ASSISTING HER. ON ROOM AIR AT THIS TIME.
[2019-06-23 18:28] LABS: Amorphous Mod (0-Heavy)
[2019-06-23 18:29] LABS: Bacteria Few /hpf; Squamous Epithelial Cells Few /hpf (Few); White Blood Cells, Urine 0-2 /hpf (0-5)
--- NOTE | 2019-06-23 19:00 | NUR ---
ASSUMED CARE NOTE: ASSUMED CARE OF PT AT 1900, RECEVIED REPORT FROM MARCEL. UPON ENTERING ROOM, PT WAS ON CPAP MACHINE. PT IS ALERT AND ORIENTEDX3, IS ABLE TO FOLLOW DIRECTIONS. PT IS IN NSR WITH HR IN THE 70'S. PT DENIES AND CP/SOB AT THIS TIME. PT ABDOMEN IS TENDER TO PALPATION, PT DENIES N/V. RIGHT RADIAL TR BAND SITE IS IN PLACE WITH 6CC INFLATED REPORTED FROM PREVIOUS SHIFT. NO ACTIVE BLEEDING NOTED ON R RADIAL SITE, SLIGHT SWELLING NOTED WHICH IS SOFT TO THE TOUCH, MAY BE DUE TO PRESSURE FROM TR BAND. ESTRADA IN PLACE, DRAINING CLEAR YELLOW URINE. IN ROOM, BED AT LOWEST LEVEL, CALL LIGHT WITHIN REACH. WILL CONTINUE TO MONITOR PT T/O SHIFT.
--- NOTE | 2019-06-23 21:12 | NUR ---
UPDATE: 1914: PT TOOK OFF CPAP, REFUSED TO USE IT. PT AGREED TO USE NC IF NEEDED WHILE SLEEPING. 2029: 20G IV TO LEFT ARM IS LEAKING, AND SATURATING POWERGLIDE DRESSING. POWERGLIDE DRESSING CHANGED AND 20G IV REMOVED. WILL ATTEMPT TO GET A 2ND IV ACCESS. 2032: TR BAND DEFLATED 2CC. NO ACTIVE BLEEDING NOTED, NO CHANGE TO SITE.
--- NOTE | 2019-06-23 21:39 | NUR ---
CALLED REGARDING, 5% DEXTROSE IV FLUIDS. ORDERS GIVEN TO DC, DUE TO P[T EATING AND DRINKING.
--- NOTE | 2019-06-23 21:55 | NUR ---
UPDATE: 2132: REMOVED 2CC ON TR BAND. NO CHANGES TO SITE NOTED. 2154: PT C/O NAUSEA, MEDICATED PER [facility].
--- NOTE | 2019-06-23 22:31 | NUR ---
TR BAND DEFLATED, NO ACTIVE BLEEDING NOTED. NO CHNAGES TO RADIAL SITE. WILL CONTACT PHARMACY TO RESTART HEPARIN IN AN HOUR.
--- NOTE | 2019-06-23 23:41 | NUR ---
Dr. LUNA CALLED REGARDING HEPARIN ORDER. NEW HEPARIN CONSULT ORDERED. PHARMACY NOTIFIED. TR BAND OFF SINCE 2329.
--- NOTE | 2019-06-24 00:22 | NUR ---
HEPRAIN INITIATED, PER EMAR. VERIFIED ORDER WITH RA GARCIA. WILL CONTINUE TO MONITOR PT. ADVISED PHARMACY OF START TIME.
[2019-06-24 03:18] LABS: BASOPHILS ABSOLUTE AUTO 0.11 K/mm3 (0.00-0.23); BASOPHILS PERCENT AUTO 0 % (0-2); EOSINOPHILS ABSOLUTE AUTO 0.01 K/mm3 (0.00-0.68); EOSINOPHILS PERCENT AUTO 0 % (0-6); Hematocrit 44.5 % (33.0-51.0); Hemoglobin 14.7 g/dL (11.5-16.0); IMMATURE GRAN ABSOLUTE AUTO 0.11 K/mm3 (0.00-0.10); IMMATURE GRAN PERCENT AUTO 0 % (0-1); LYMPHOCYTES ABSOLUTE AUTO 3.87 K/mm3 (0.84-5.20); LYMPHOCYTES PERCENT AUTO 15 % (21-46); MONOCYTES ABSOLUTE AUTO 2.56 K/mm3 (0.16-1.47); MONOCYTES PERCENT AUTO 10 % (4-13); Mean Corpuscular HGB 29.8 pg (26.0-34.0); Mean Platelet Volume 11.3 fL (9.1-12.4); NEUTROPHILS ABSOLUTE AUTO 18.46 K/mm3 (1.96-9.15); NEUTROPHILS PERCENT AUTO 74 % (41-73); Platelet Count 363 K/mm3 (150-400); RDW Coefficient Variation 14.8 % (11.7-14.2); RDW Standard Deviation 49.1 fL (35.1-46.3); Red Blood Cell Count 4.93 M/mm3 (3.80-5.20); White Blood Cell Count 25.12 K/mm3 (4.00-11.30)
[2019-06-24 03:19] LABS: Mean Corpuscular Volume 90 fL (80-100)
[2019-06-24 03:37] LABS: Albumin, Blood 2.1 g/dL (3.4-5.0); Albumin/Globulin Ratio 0.6 (0.8-1.8); Bilirubin, Total 0.4 mg/dL (0.1-1.0); Bun/Creatinine Ratio 30.5 (12.0-20.0); Calcium, Blood 8.4 mg/dL (8.5-10.1); Creatinine, Blood 1.31 mg/dL (0.40-1.00); Globulin, Blood 3.6 g/dL (2.2-4.0); Potassium, Blood 4.8 mmol/L (3.5-5.5); Total Protein, Blood 5.7 g/dL (6.4-8.2)
--- NOTE | 2019-06-24 05:20 | NUR ---
SHIFT SUMMARY: SEE PREVIOUS NOTES. PT REMAINS ALERT AND ORIENTED AND CONTINUES TO BE ON RA WITH SPO2 ABOVE 94%. NSR WITH HR IN THE 70'S. PT DENIED ANY SOB OR CHEST PAIN DURING THE SHIFT. NEW EKG TAKEN ORDERED, SEE CHART. PT HAS BEEN C/O NAUSEA AND LOWER ABDOMINAL PAIN. PT HAS BEEN MEDICATED PER EMAR, T/O SHIFT SEE EMAR. PT HAS NOT BEEN ABLE TO SLEEP WELL DURING THIS SHIFT. TR BAND HAS BEEN OFF SINCE 2330, HEPARIN WAS AN HOUR LATER ORDERED. HEPARIN INFUSING @ 13U/KG/HR. NEXT APPT IS ORDERED FOR 0800. NO CHANGES TO RADIAL SITE, NO OZZING NOTED, PINK, WARM. STRONG PERIPHERAL PULSES IN ALL EXTREMITIES. ESTRADA DRAINING CLEAR YELLOW URINE. BED AT LOWEST LEVEL, CALL LIGHT WITHIN REACH. WILL CONTINUE TO MONITOR PT UNTIL REPORT IS GIVEN TO ONCOMING SHIFT.
--- NOTE | 2019-06-24 08:00 | NUR ---
INITIAL ASSESMENT PT CALM AND COOPERATIVE WITH FLAT AFFECT AND C/O BACK PAIN AND NAUSEA WITH NO VOMIT. REPOSITIONED PRN GIVEN AND EMOTIONAL SUPPORT PROVIDED. VSS AND AFEBRILE WITH PALP PULSES T/O AND TRACE GENERALIZED EDEMA. POOR APPETITE, ABD SOFT OBESE AND NON TENDER WITH BT T/O. UO ADEQUATE VIA ESTRADA AND DRAINING CLEAR YELLOW URINE. HEPARIN QTT PER RX. RIGHT RADIAL T BAND INSERTION STIE STABLE, TENDER AND SOFT WITH SPLINT IN PLACE. WILL CONT TO MONITOR.
[2019-06-24 16:09] LABS: Base Excess Venous -3.6 mmol/L; Bicarbonate Venous 21.6 mmol/L (24.0-30.0); PCO2 Venous 38.7 mmHg (38-42); PO2 Venous 69.3 mmHg (38-42); pH Blood Venous 7.36 (7.34-7.37)
[2019-06-24 16:46] LABS: Vancomycin, Trough 12.7 ug/mL (5.0-10.0)
--- NOTE | 2019-06-24 18:14 | NUR ---
PCU TRANSFER NOTE PATIENT ADMITTED TO PCU @ APPROXIMATELY 1700 VIA GURNEY FROM ICU. REPORT CALLED TO RADHA MEDINA. AOX4. RA. AT BEDSIDE. HEPARIN 25,000 U/500ML DRIP RUNNING AT 15U/HR AT TIME OF TRANSFER TO [facility] POWER GLIDE DRESSING INTACT AND SITE WNL'S. 20G IV SALINE LOCKED TO LEFT FOREARM. RADHA MEDINA CONTACTED PHARMACY TO ADJUST DOSE OF HEPARIN DRIP TO 16U/HR. VANCO PIGGY BACK HUNG BY THIS SN PER EMAR. ESTRADA CATHETER DRAINING CLEAR YELLOW URINE. SCDs TO BILATERAL CALFS.
[2019-06-25 04:13] LABS: BASOPHILS ABSOLUTE AUTO 0.12 K/mm3 (0.00-0.23); BASOPHILS PERCENT AUTO 1 % (0-2); EOSINOPHILS ABSOLUTE AUTO 0.23 K/mm3 (0.00-0.68); EOSINOPHILS PERCENT AUTO 1 % (0-6); Hematocrit 43.5 % (33.0-51.0); Hemoglobin 14.2 g/dL (11.5-16.0); IMMATURE GRAN ABSOLUTE AUTO 0.12 K/mm3 (0.00-0.10); IMMATURE GRAN PERCENT AUTO 1 % (0-1); LYMPHOCYTES ABSOLUTE AUTO 4.34 K/mm3 (0.84-5.20); LYMPHOCYTES PERCENT AUTO 21 % (21-46); MONOCYTES ABSOLUTE AUTO 2.45 K/mm3 (0.16-1.47); MONOCYTES PERCENT AUTO 12 % (4-13); Mean Corpuscular HGB 29.4 pg (26.0-34.0); Mean Corpuscular HGB Conc 32.6 g/dL (31.5-36.5); Mean Corpuscular Volume 90 fL (80-100); Mean Platelet Volume 11.3 fL (9.1-12.4); NEUTROPHILS ABSOLUTE AUTO 13.93 K/mm3 (1.96-9.15); NEUTROPHILS PERCENT AUTO 66 % (41-73); NRBC ABSOLUTE 0.02 K/mm3 (0.00-0.02); NRBC Auto 0.1 /100 WBC (0.0-0.2); Platelet Count 333 K/mm3 (150-400); RDW Standard Deviation 50.1 fL (35.1-46.3); Red Blood Cell Count 4.83 M/mm3 (3.80-5.20); White Blood Cell Count 21.19 K/mm3 (4.00-11.30)
[2019-06-25 04:35] LABS: Albumin, Blood 1.8 g/dL (3.4-5.0); Albumin/Globulin Ratio 0.5 (0.8-1.8); Bilirubin, Total 0.4 mg/dL (0.1-1.0); Bun/Creatinine Ratio 33.6 (12.0-20.0); Calcium, Blood 8.1 mg/dL (8.5-10.1); Creatinine, Blood 1.16 mg/dL (0.40-1.00); Globulin, Blood 3.4 g/dL (2.2-4.0); Potassium, Blood 4.2 mmol/L (3.5-5.5); Total Protein, Blood 5.2 g/dL (6.4-8.2)
--- NOTE | 2019-06-25 04:46 | NUR ---
SHIFT SUMMARY: PATIENTS VSS ALL SHIFT, PAIN AND NAUSEA WERE THE BIGGEST COMPLAINTS/ISSUES FOR THE PATIENT. ALL MEDICATIONS GIVEN PER MD ORDERS WITH SOME TEMPORARY RELIEF. PATIENT STATES HER ABDOMINAL IS SOMETHING SHE GETS WHEN SHE HAS DIARRHEA (NO BM THIS SHIFT). PATIENT ABLE TO TOLLERATE MEDICATION AND SLEPT WELL THIS SHIFT, NO OTHER ISSUES NOTED.
--- NOTE | 2019-06-25 11:08 | NUR ---
SPOKE WITH DR FRIEDMAN REGARDING PT'S CONSULT REFERRAL, DR FRIEDMAN DOES NOT RECOMMEND DOING COLONOSCOPY RIGHT NOW, ALSO AGREED PT TO DISCHARGE IF STABLE AND FOR PT TO FOLLOW UP WITH HIM OUTPATIENT IN HIS OFFICE.
--- NOTE | 2019-06-25 18:08 | NUR ---
PT LERT AND ORIENTED TO BASELINE, PT IS HERE FOR NSTEMI AND CYCLIC VOMITING, DR FRIEDMAN CONSULTED FOR GI ISSUES, AGREED TO DISCHARGE PT IS STABLE AND TO FOLLOW UP OUTPATIENT IN HIS OFFICE. PT STILL HAS NAUSEA ZOFRAN AND PHENERGAN IV GIVEN AND EFFECTIVE. PT ALSO C/O BACK PAIN MORPHINE SCHEDULED GIVEN THIS AM, PT ALSO C/O ABDOMINAL CRAMPS, PT HAD PRUNE JUICE THIS AM, PT REPORTED SHE FFELS LIKE SHE NEEDED TO HAVE A BM, BOWEL TONES HYPOACTIVE, PT HAD TUMS WELL FOR REFLUX. NO REPORTED BM YET FOR THE SHIFT. PT HAS POOR APPETITE OFFERED ENSURE AND GLUCERNA ONLY HAD 40% OF EACH. PT CBG MANAGED WITH HUMALOG WITH SLIDING SCALE. PT HAS BEEN GIVEN PARTIAL ADMINISTRATION PER REQUEST SINCE PT IS A BRITLE DIABETIC AND HASN'T BEEN EATING MUCH. PT WAS SEEN BY DR. LOPEZ TODAY PT FOR POSSIBLE DISCHARGE TOMORROW IF STABLE. ALL ABO DISCONTINUED FOR THE SHIFT. PT'S BP SYSTOLIC AT THE END OF THE SHIFT RANGING 160'S-180'S IV HYDRALAZINE GIVEN AND TREND DOWN TO 132/59. PT DENIES CHEST PAIN AT THIS TIME, HRR SR ON THE 70'S, SATS KEPT ABOVE 90% ON ROOMAR. WILL JANIE. TO GIVE REPORT TO ONCOMING SHIFT.
--- NOTE | 2019-06-26 07:51 | NUR ---
SHIFT SUMMARY PATIENT PLEASENT AND COOPERATIVE THROUGHOUT THE NIGHT. PATIENT APPEARED TO SLEEP WELL LAST NIGHT. PATIENT APPEARED TO MOVE HER SELF ABOUT THE BED. PATIENT MEDICATED FOR NAUSEA PER EMAR. BEDSIDE REPORT GIVEN TO ONCOMING RN.
[2019-06-26 09:10] LABS: BASOPHILS ABSOLUTE AUTO 0.12 K/mm3 (0.00-0.23); BASOPHILS PERCENT AUTO 1 % (0-2); EOSINOPHILS ABSOLUTE AUTO 0.71 K/mm3 (0.00-0.68); EOSINOPHILS PERCENT AUTO 3 % (0-6); Hematocrit 44.9 % (33.0-51.0); Hemoglobin 14.5 g/dL (11.5-16.0); IMMATURE GRAN ABSOLUTE AUTO 0.14 K/mm3 (0.00-0.10); IMMATURE GRAN PERCENT AUTO 1 % (0-1); LYMPHOCYTES ABSOLUTE AUTO 4.85 K/mm3 (0.84-5.20); LYMPHOCYTES PERCENT AUTO 22 % (21-46); MONOCYTES ABSOLUTE AUTO 2.29 K/mm3 (0.16-1.47); MONOCYTES PERCENT AUTO 10 % (4-13); Mean Corpuscular HGB 29.5 pg (26.0-34.0); Mean Corpuscular HGB Conc 32.3 g/dL (31.5-36.5); Mean Corpuscular Volume 91 fL (80-100); Mean Platelet Volume 11.7 fL (9.1-12.4); NEUTROPHILS ABSOLUTE AUTO 14.09 K/mm3 (1.96-9.15); NEUTROPHILS PERCENT AUTO 64 % (41-73); Platelet Count 339 K/mm3 (150-400); RDW Coefficient Variation 14.9 % (11.7-14.2); Red Blood Cell Count 4.91 M/mm3 (3.80-5.20)
[2019-06-26 09:30] LABS: Calcium, Blood 8.3 mg/dL (8.5-10.1); Creatinine, Blood 1.03 mg/dL (0.40-1.00); Potassium, Blood 4.3 mmol/L (3.5-5.5)
[2019-06-26 15:16] LABS: Base Excess Venous -2.3 mmol/L; PCO2 Venous 33.3 mmHg (38-42); PO2 Venous 68.7 mmHg (38-42); pH Blood Venous 7.43 (7.34-7.37)
--- NOTE | 2019-06-26 17:00 | NUR ---
PT TRANSFERRED TO MEDICAL FLOOR RM 326 @1500. PT PARTICIPATED WITH THERAPY TODAY ABLE TO AMBULATE 30FT VIA FWW SBA. PT CBG CONTROLLED WITH INSULIN, PT HAS BEEN SINUS RHYTHM ON THE 70'S NO CHEST PAIN REPORTED, BP SYSTOLIC WAS ON THE 140'S-170'S IV HYDRALAZINE GIVEN X1, BP SYS TREND DOWN TO 120'S. PT WAS SEEN BY DR LOPEZ TODAY ORDERED 500 CC OF NS BOLUS FOR HYDRATION BP SYSTOLIC WAS RECHECKED WENT UP TO 169/69. MEDICAL FLOOR NURSE GIVEN REPORT REGARDING PT AND MADE AWARE OF THE BLOOD PRESSURE ISSUES. PT C/O NAUSEA X2 ANTI NAUSEA PHENERGAN AND REGLAN GIVEN AND EFFECTIVE, PT ALSO HAD A BOWEL MOVEMENT TODAY PT STILL C/O ABD CRAMPS, MIRALAX X1 PACKET GIVEN NO REPORTED BM AFTER. POWERGLIDE INTACT ON YESSICA AND FLUSHING WELL, ANGIO SITE ON R WRIST WNL CLEAR DRESSING INTACT. ALL BELONGINGS SENT WITH THE PATIENT. PT FOR POSSIBLE DISCHARGE TOMORROW WITH HOME HEALTH.
--- NOTE | 2019-06-26 18:31 | NUR ---
PT WAS TRANSFERED TO ROOM AFTER 1600. PT WAS AOX4 AND COOPERATIVE OF CARE. PT TREATED FOR NAUSEA PER EMAR. PT ABLE TO EAT SMALL AMOUNT OF HER DINNER WELL. PT COOPERATIVE OF CARE AND CALLS APPROPRIATELY. PT RESTING IN BED AT THIS TIME WITH CALL LIGHT WITHIN REACH.
--- NOTE | 2019-06-27 04:04 | NUR ---
SUMMARY: A/OX4, CALLS APPROPRIATELY AND IS SBA W/FWW OOB. SHE CONT'S TO HAVE NAGGING NAUSEA THAT SHE ADMITS IS PRESENT AT BASELINE. PHENERGAN X2 DOSES, REGLAN AND ZOFRAN RECIEVED REGULARLY T/O NOCTE. PT ALSO REPORTS ABDO PAIN, GAS W/FLATTUS AND OCCASIONAL LOOSE BM'S. SHE HAD X1 BM THIS SHIFT (X3 IN 24 HRS) BUT PT WAS GIVEN MIRILAX FOR CONSTIPATION ON DAY SHIFT. ATTENDS CHANGED FOR SMEAR INCONTINENCE PRN. SCHEDULED MS CONTIN WAS RECIEVED FOR GOOD EFFECT OF CHRONIC BACK PAIN. CBG STABLE AT 152 THIS SHIFT. NO ACUTE CHANGES. VSS AND AFEBRILE W/IMPROVED BP FOLLOWING HYDRALAZINE GIVEN ON DAY SHIFT. WCTM AND REPORT TO DAY RN.
[2019-06-27 05:37] LABS: EOSINOPHILS PERCENT AUTO 4 % (0-6); Hematocrit 41.4 % (33.0-51.0); Hemoglobin 13.5 g/dL (11.5-16.0); IMMATURE GRAN PERCENT AUTO 1 % (0-1); LYMPHOCYTES PERCENT AUTO 18 % (21-46); MONOCYTES PERCENT AUTO 13 % (4-13); Mean Corpuscular HGB 29.7 pg (26.0-34.0); Mean Corpuscular HGB Conc 32.6 g/dL (31.5-36.5); Mean Corpuscular Volume 91 fL (80-100); Mean Platelet Volume 11.3 fL (9.1-12.4); NEUTROPHILS PERCENT AUTO 65 % (41-73); Platelet Count 329 K/mm3 (150-400); RDW Coefficient Variation 14.6 % (11.7-14.2); RDW Standard Deviation 49.2 fL (35.1-46.3); Red Blood Cell Count 4.54 M/mm3 (3.80-5.20); White Blood Cell Count 25.14 K/mm3 (4.00-11.30)
--- NOTE | 2019-06-27 05:38 | NUR ---
PG NO LONGER PATENT AND LEAKED IMMEDIATELY UPON ATTEMPT TO ADMINISTER PHENERGAN. PG DC'D AT THIS TIME AND MED GIVEN VIA L.FA PIV INSTEAD.
[2019-06-27 06:12] LABS: BASOPHILS ABSOLUTE AUTO 0.13 K/mm3 (0.00-0.23); BASOPHILS PERCENT AUTO 1 % (0-2); EOSINOPHILS ABSOLUTE AUTO 0.98 K/mm3 (0.00-0.68); IMMATURE GRAN ABSOLUTE AUTO 0.12 K/mm3 (0.00-0.10); LYMPHOCYTES ABSOLUTE AUTO 4.49 K/mm3 (0.84-5.20); MONOCYTES ABSOLUTE AUTO 3.21 K/mm3 (0.16-1.47); NEUTROPHILS ABSOLUTE AUTO 16.26 K/mm3 (1.96-9.15); NRBC ABSOLUTE 0.02 K/mm3 (0.00-0.02); NRBC Auto 0.1 /100 WBC (0.0-0.2)
[2019-06-27] MEDS ORDERED: CITA20 PO (10:50)
[2019-06-27 11:43] LABS: Source, Urine Clean Catch
[2019-06-27 11:49] LABS: Bilirubin, Urine Neg (Neg); Blood, Urine Neg (Neg); Glucose Qualitative, Urine 3+ (Neg); Ketones, Urine Neg (Neg); Leukocyte Esterase, Urine Neg (Neg); Nitrite, Urine Neg (Neg); Protein, Urine 3+ (Neg); Specific Gravity, Urine 1.015 (1.003-1.022); Urobilinogen, Urine NORM (Normal)
[2019-06-27 12:23] LABS: Appearance, Urine Hazy (Clear); Color, Urine Yellow (P-Yellow)
[2019-06-27 12:29] LABS: Bacteria Not Seen /hpf; Granular Casts 0-2 /lpf (0); Red Blood Cells, Urine 0-2 /hpf (0-2); Squamous Epithelial Cells Few /hpf (Few); White Blood Cells, Urine 0-2 /hpf (0-5)
--- NOTE | 2019-06-27 13:02 | NUR ---
TRANSFER PT WILL GO TO ROOM 219 LATER THIS AFTERNOON
--- NOTE | 2019-06-27 13:36 | NUR ---
permission of care was given 06/27/2019 at 1335.
--- NOTE | 2019-06-27 17:19 | NUR ---
SUMMARY PT AWAKE IN BED TALKING ON THE PHONE, PT SPOUSE HAS BEEN IN TO VISIT FOR MOST OF THE DAY, PT WORKED WITH PT/OT, PT HAS BEEN PLEASANT AND COOPERATIVE WITH CARE, NO NAUSEA OR VOMITING T/O THE DAY, VSS, NO ACUTE CHANGES, WILL CONT TO MONITOR
--- NOTE | 2019-06-27 17:47 | NUR ---
Routine spiritual care note: Mrs. Murray was alone in room, pleasant, and talkative. She spoke very proudly of her family and enjoyed telling me about multiple generations. He children and grand-children bring meaning to her life. She reports to be feeling "so much better" and says she is grateful for the care she's recieved. She is hoping to return home soon. I provided theraputic listening, affirmation of obvious love, gentle loan counselor, and prayer. No fears or concerns presented. I will remain available.
[2019-06-28 05:50] LABS: BASOPHILS ABSOLUTE AUTO 0.11 K/mm3 (0.00-0.23); BASOPHILS PERCENT AUTO 1 % (0-2); EOSINOPHILS ABSOLUTE AUTO 1.39 K/mm3 (0.00-0.68); EOSINOPHILS PERCENT AUTO 6 % (0-6); Hematocrit 40.8 % (33.0-51.0); Hemoglobin 13.1 g/dL (11.5-16.0); IMMATURE GRAN ABSOLUTE AUTO 0.19 K/mm3 (0.00-0.10); IMMATURE GRAN PERCENT AUTO 1 % (0-1); LYMPHOCYTES ABSOLUTE AUTO 4.71 K/mm3 (0.84-5.20); LYMPHOCYTES PERCENT AUTO 21 % (21-46); MONOCYTES PERCENT AUTO 11 % (4-13); Mean Corpuscular HGB 29.4 pg (26.0-34.0); Mean Corpuscular HGB Conc 32.1 g/dL (31.5-36.5); Mean Corpuscular Volume 92 fL (80-100); NEUTROPHILS ABSOLUTE AUTO 13.41 K/mm3 (1.96-9.15); NEUTROPHILS PERCENT AUTO 60 % (41-73); Platelet Count 332 K/mm3 (150-400); RDW Coefficient Variation 14.8 % (11.7-14.2); RDW Standard Deviation 50.2 fL (35.1-46.3); Red Blood Cell Count 4.45 M/mm3 (3.80-5.20); White Blood Cell Count 22.31 K/mm3 (4.00-11.30)
--- NOTE | 2019-06-28 07:15 | NUR ---
SHIFT SUMMARY PT IS A 74 Y/O FEMALE, ADMITTED FOR INTRACTABLE N/V AND A NSTEMI. SHE IS A&O X 4, AND SBA IN THE ROOM. PT DENIED ANY COMPLAINTS OF CHEST PAIN OR SOB, BUT DID REPORT MILD NAUSEA THIS AM. SHE DENIED THE NEED FOR NAUSEA MEDS. VITAL SIGNS STABLE. NO ACUTE CHANGES IN PT CONDITION NOTED. REPORT GIVEN TO ONCOMING RN.
[2019-06-28 15:10] LABS: Base Excess Venous -1.3 mmol/L; Bicarbonate Venous 23.8 mmol/L (24.0-30.0); PCO2 Venous 33.3 mmHg (38-42); PO2 Venous 135 mmHg (38-42); pH Blood Venous 7.44 (7.34-7.37)
--- NOTE | 2019-06-28 15:33 | NUR ---
SHIFT SUMMARY THE PATIENT HAS HAD AN UNEVENTFUL SHIFT. VITALS HAVE BEEN STABLE. PATIENT TRANSFERS WITH 1X ASSIST AND FWW WHILE IN ROOM. TELE AND IV DISCONTINUED PER DR RINALDI. NO COMPLAINTS OF N/V THIS SHIFT. THERE HAVE BEEN NO ACUTE CHANGES TO REPORT OF DURING THIS SHIFT. WILL CONTINUE TO MONITOR AND PROVIDE CARE NEEDED.
[2019-06-29 05:30] LABS: BASOPHILS ABSOLUTE AUTO 0.14 K/mm3 (0.00-0.23); BASOPHILS PERCENT AUTO 1 % (0-2); EOSINOPHILS ABSOLUTE AUTO 1.55 K/mm3 (0.00-0.68); EOSINOPHILS PERCENT AUTO 8 % (0-6); Hematocrit 34.6 % (33.0-51.0); Hemoglobin 11.3 g/dL (11.5-16.0); IMMATURE GRAN ABSOLUTE AUTO 0.25 K/mm3 (0.00-0.10); IMMATURE GRAN PERCENT AUTO 1 % (0-1); LYMPHOCYTES ABSOLUTE AUTO 5.19 K/mm3 (0.84-5.20); LYMPHOCYTES PERCENT AUTO 25 % (21-46); MONOCYTES PERCENT AUTO 14 % (4-13); Mean Corpuscular HGB 29.6 pg (26.0-34.0); Mean Corpuscular HGB Conc 32.7 g/dL (31.5-36.5); Mean Corpuscular Volume 91 fL (80-100); Mean Platelet Volume 11.3 fL (9.1-12.4); NEUTROPHILS ABSOLUTE AUTO 10.58 K/mm3 (1.96-9.15); NEUTROPHILS PERCENT AUTO 52 % (41-73); Platelet Count 324 K/mm3 (150-400); RDW Coefficient Variation 14.4 % (11.7-14.2); RDW Standard Deviation 47.8 fL (35.1-46.3); Red Blood Cell Count 3.82 M/mm3 (3.80-5.20); White Blood Cell Count 20.51 K/mm3 (4.00-11.30)
[2019-06-29 05:48] LABS: Albumin, Blood 1.7 g/dL (3.4-5.0); Anion Gap 3 mmol/L (6-16); Blood Urea Nitrogen 39 mg/dL (8-24); Bun/Creatinine Ratio 34.8 (12.0-20.0); CO2, Blood 27 mmol/L (21-32); Chloride, Blood 104 mmol/L (98-108); Creatinine, Blood 1.12 mg/dL (0.40-1.00); Glomerular Filtration Rate 50 (60-); Glucose, Blood 135 mg/dL (70-99); Phosphorus, Blood 3.8 mg/dL (2.5-4.9); Potassium, Blood 4.8 mmol/L (3.5-5.5); Sodium, Blood 134 mmol/L (136-145)
--- NOTE | 2019-06-29 08:32 | NUR ---
Patient gave consent for student to provide care today.
--- NOTE | 2019-06-29 09:26 | NUR ---
PT. WOKE UP COMPLAINING OF SWEATING DURING THE NIGHT AND "JUST NOT FEELING RIGHT". REPORTED FEELING BETTER AFTER EATING BREAKFAST.
[2019-06-29] MEDS ORDERED: CARV6.25 PO (12:17)
[2019-06-29] MEDS ORDERED: CLOP75 PO (12:18)
[2019-06-29] MEDS ORDERED: DOCU100 PO (12:19)
[2019-06-29] MEDS ORDERED: Culturelle1 CAP PO (12:20)
[2019-06-29] MEDS ORDERED: ONDA4ODT MM (12:20)
[2019-06-29] MEDS ORDERED: MIRALAX17 GM PO (12:22)
--- NOTE | 2019-06-29 12:59 | NUR ---
DISCHARGE INSTRUCTIONS REVIEWED WITH THE PATIENT. FOLLOW-UP APPOINTMENTS MADE WITH PATIENTS MIDDLE SCHOOL PROFESSIONAL AND PCP PER ORDERS. EDUCATIONAL MATERIAL PROVIDED REGARDING PLAVIX, COREG AND NSTEMI. PATIENT HAS NO IV OR TELE. ALL QUESTIONS ANSWERED. PATIENT WILL DISCHARGE HOME WITH WHEN HE RETURNS TO FACILITY.
--- NOTE | 2019-06-29 14:29 | NUR ---
PATIENT DISCHARGED HOME WITH AT 1430. FIELD AGENT USED WHEEL CHAIR TO ASSIST PATIENT OUT TO VEHICLE.
== END 2019-06-29 14:30 | disposition home health service (06) | DRG 250 ==
LOC: ER 10:57 → MEDS 15:43 → ICUE 15:43 → MEDS 17:15 → ICUE 06-22 15:46 → MEDS 06-23 10:05 → ICUE 06-24 15:16 → PCU 06-24 17:00 → MEDS 06-26 16:58 → ENPENDDIS 06-29 09:00 → MEDS 06-29 14:30
PROVIDERS: Family Medicine; Hospitalist; Internal Medicine; Nurse Practitioner Acute Care; Pharmacist; Physician Assistant; ADMIT Internal Medicine
PROC: 02703ZZ Dilation of Coronary Artery, One Artery, Percutaneous Approach (ICD-10-PCS; principal; 2019-06-23)
PROC: B241ZZ3 Ultrasonography of Multiple Coronary Arteries, Intravascular (ICD-10-PCS; 2019-06-23)
PROC: B2111ZZ Fluoroscopy of Multiple Coronary Arteries using Low Osmolar Contrast (ICD-10-PCS; 2019-06-23)
DX: I21.4 Non-ST elevation (NSTEMI) myocardial infarction (principal); E11.00 Type 2 diabetes mellitus with hyperosmolarity without nonketotic hyperglycemic-hyperosmolar coma (NKHHC); F11.20 Opioid dependence, uncomplicated; I50.32 Chronic diastolic (congestive) heart failure; E11.40 Type 2 diabetes mellitus with diabetic neuropathy, unspecified; I25.10 Atherosclerotic heart disease of native coronary artery without angina pectoris; E78.5 Hyperlipidemia, unspecified; Z90.81 Acquired absence of spleen; Z79.4 Long term (current) use of insulin; E03.9 Hypothyroidism, unspecified; J45.909 Unspecified asthma, uncomplicated; I70.1 Atherosclerosis of renal artery; M54.9 Dorsalgia, unspecified; I11.0 Hypertensive heart disease with heart failure; K86.89 Other specified diseases of pancreas; K59.00 Constipation, unspecified; G89.4 Chronic pain syndrome
CPT/HCPCS: 0099U; 36415; 36600; 51702; 70450; 71045; 71046; 74176; 76937; 80048; 80053; 80069; 80202; 81001; 82803; 82947; 83605; 83690; 83735; 83880; 84100; 84145; 84443; 84484; 85025; 85347; 85610; 85730; 87040; 87081; 92920; 92978; 93005; 93010; 93308; 93321; 93454; 94660; 94762; 96361; 96374; 96375; 96376; 97110; 97116; 97161; 97530; 99152; 99153; 99285-25; A9270-GY; C1725; C1751; C1769; C1887; C1894; G0378; J0360; J0696; J0780; J1170; J1200; J1644; J1815; J1956; J2250; J2270; J2405; J2550; J2765; J3010; J3370; J3480; J7030; J7040; J7050; P9612; Q9967

== ENCOUNTER → 2020-02-12 | Outpatient (CLI) | payer OTHER ==
[~2020-02-12] MED LIST changes: +ATENOLOL25 MG PO; +CARV6.25 PO; +CITA20 PO; +CITALOPRAM HBR10 MG PO; +Culturelle1 CAP PO; +DOCU100 PO; +MIRALAX17 GM PO; +NEURONTIN300 MG PO; +ONDA4ODT MM; +Oyster Shell C500 MG PO; +SPIRONOLACTONE25 MG PO; +VITAMIN B IM; +ZENPEP DR 40,01 EACH PO
[2020-02-12 20:29] LABS: Creatinine Urine 26.6 mg/dL (27.00-270.00); Protein, Urine Quantitative 43.2 mg/dL (0.0-11.9)
== END | disposition home or self-care (01) ==
LOC: LAB 17:43 → LAB SHORT 17:43
PROVIDERS: Internal Medicine Nephrology
DX: N18.31 Chronic kidney disease, stage 3a (principal); D63.1 Anemia in chronic kidney disease; N25.81 Secondary hyperparathyroidism of renal origin; E55.9 Vitamin D deficiency, unspecified; E78.00 Pure hypercholesterolemia, unspecified; R80.9 Proteinuria, unspecified
CPT/HCPCS: 81050; 82043; 82570; 84156

== ENCOUNTER 2020-04-14 11:00 | Emergency (ER) | payer OTHER ==
[~2020-04-14] VITALS: Ht 165.1 cm; Wt 86.2 kg
[~2020-04-14 11:00] MED LIST changes: -CITA20 PO; +Celexa10 MG PO; +HUMALOG KW100 UNIT/1 SC; -Humalog100 UNIT/1 SC; -TOUJEO SOL300 UNIT/1 SC; +TOUJEO SOL300 UNIT/2 SC
[2020-04-14 11:37] LABS: BASOPHILS ABSOLUTE AUTO 0.06 K/mm3 (0.00-0.23); BASOPHILS PERCENT AUTO 1 % (0-2); EOSINOPHILS ABSOLUTE AUTO 0.21 K/mm3 (0.00-0.68); EOSINOPHILS PERCENT AUTO 2 % (0-6); Hematocrit 40.5 % (33.0-51.0); Hemoglobin 12.7 g/dL (11.5-16.0); IMMATURE GRAN ABSOLUTE AUTO 0.03 K/mm3 (0.00-0.10); IMMATURE GRAN PERCENT AUTO 0 % (0-1); LYMPHOCYTES ABSOLUTE AUTO 4.15 K/mm3 (0.84-5.20); LYMPHOCYTES PERCENT AUTO 48 % (21-46); MONOCYTES ABSOLUTE AUTO 1.23 K/mm3 (0.16-1.47); MONOCYTES PERCENT AUTO 14 % (4-13); Mean Corpuscular HGB 28.3 pg (26.0-34.0); Mean Corpuscular HGB Conc 31.4 g/dL (31.5-36.5); Mean Corpuscular Volume 90 fL (80-100); Mean Platelet Volume 11.3 fL (9.1-12.4); NEUTROPHILS ABSOLUTE AUTO 3.03 K/mm3 (1.96-9.15); NEUTROPHILS PERCENT AUTO 35 % (41-73); Platelet Count 407 K/mm3 (150-400); RDW Coefficient Variation 15.6 % (11.7-14.2); RDW Standard Deviation 51.4 fL (35.1-46.3); Red Blood Cell Count 4.49 M/mm3 (3.80-5.20); White Blood Cell Count 8.71 K/mm3 (4.00-11.30)
[2020-04-14] MEDS ORDERED: MS Contin15 MG PO (11:41)
[2020-04-14] MEDS ORDERED: CARVEDILOL6.25 MG PO (11:42)
[2020-04-14] MEDS ORDERED: NEURONTIN300 MG PO (11:42)
[2020-04-14 12:00] LABS: Albumin, Blood 2.5 g/dL (3.4-5.0); Albumin/Globulin Ratio 0.6 (0.8-1.8); Bilirubin, Total 0.4 mg/dL (0.1-1.0); Bun/Creatinine Ratio 42.4 (12.0-20.0); Calcium, Blood 8.2 mg/dL (8.5-10.1); Creatinine, Blood 1.58 mg/dL (0.40-1.00); Globulin, Blood 3.9 g/dL (2.2-4.0); Potassium, Blood 5.1 mmol/L (3.5-5.5); Total Protein, Blood 6.4 g/dL (6.4-8.2); Troponin I 0.055 ng/mL (0.000-0.040)
== END 2020-04-14 16:10 | disposition home or self-care (01) ==
LOC: ER 11:00
PROVIDERS: Emergency Medicine
DX: R55 Syncope and collapse (principal); E11.9 Type 2 diabetes mellitus without complications; I10 Essential (primary) hypertension; I25.10 Atherosclerotic heart disease of native coronary artery without angina pectoris; E78.5 Hyperlipidemia, unspecified; E11.40 Type 2 diabetes mellitus with diabetic neuropathy, unspecified; Z88.8 Allergy status to other drugs, medicaments and biological substances; Z79.4 Long term (current) use of insulin; Z79.82 Long term (current) use of aspirin; Z79.02 Long term (current) use of antithrombotics/antiplatelets; Z79.899 Other long term (current) drug therapy; Z95.5 Presence of coronary angioplasty implant and graft; Z87.891 Personal history of nicotine dependence
CPT/HCPCS: 80053; 82947; 84484; 85025; 93005; 93010; 96360; 96361; 99284-25; J7120

== ENCOUNTER → 2020-07-11 | Outpatient (CLI) | payer OTHER ==
[~2020-07-11] MED LIST changes: +CARVEDILOL6.25 MG PO; +MS Contin15 MG PO
[2020-07-11 20:12] LABS: U Amphetamine Screen Not Detected; U Barbituate Screen Not Detected; U Benzodiazapine Screen Not Detected; U Buprenorphine Screen Not Detected; U Cannabinoids Screen Not Detected; U Cocaine Screen Not Detected; U Methadone Screen Not Detected; U Methamphetamine Screen Not Detected; U Opiates Screen DETECTED; U Oxycodone Screen Not Detected; U Phencyclidine Screen Not Detected; U Propoxyphene Screen Not Detected
[2020-07-19 14:11] LABS: 6-ACETYLMORPHINE Not Detected (.)
== END | disposition home or self-care (01) ==
LOC: LAB SHORT 15:30 → LAB 15:30
PROVIDERS: Internal Medicine Hematology & Oncology
DX: Z51.81 Encounter for therapeutic drug level monitoring (principal); Z79.899 Other long term (current) drug therapy
CPT/HCPCS: G0480

== ENCOUNTER → 2020-10-17 | Outpatient (CLI) | payer OTHER ==
[2020-10-17 13:44] LABS: BASOPHILS ABSOLUTE AUTO 0.16 K/mm3 (0.00-0.23); BASOPHILS PERCENT AUTO 1 % (0-2); EOSINOPHILS ABSOLUTE AUTO 0.79 K/mm3 (0.00-0.68); EOSINOPHILS PERCENT AUTO 7 % (0-6); Hematocrit 35.3 % (33.0-51.0); IMMATURE GRAN ABSOLUTE AUTO 0.04 K/mm3 (0.00-0.10); IMMATURE GRAN PERCENT AUTO 0 % (0-1); LYMPHOCYTES ABSOLUTE AUTO 2.84 K/mm3 (0.84-5.20); LYMPHOCYTES PERCENT AUTO 23 % (21-46); MONOCYTES ABSOLUTE AUTO 1.32 K/mm3 (0.16-1.47); MONOCYTES PERCENT AUTO 11 % (4-13); Mean Corpuscular HGB 28.8 pg (26.0-34.0); Mean Corpuscular HGB Conc 31.2 g/dL (31.5-36.5); Mean Corpuscular Volume 92 fL (80-100); Mean Platelet Volume 10.6 fL (9.1-12.4); NEUTROPHILS ABSOLUTE AUTO 7.09 K/mm3 (1.96-9.15); NEUTROPHILS PERCENT AUTO 58 % (41-73); Platelet Count 473 K/mm3 (150-400); RDW Coefficient Variation 15.3 % (11.7-14.2); RDW Standard Deviation 52.1 fL (35.1-46.3); Red Blood Cell Count 3.82 M/mm3 (3.80-5.20); White Blood Cell Count 12.24 K/mm3 (4.00-11.30)
[2020-10-17 14:07] LABS: Thyroid Stimulating Hormone 1.27 uIU/mL (0.360-4.800)
[2020-10-17 14:08] LABS: Albumin, Blood 2.9 g/dL (3.4-5.0); Albumin/Globulin Ratio 0.7 (0.8-1.8); Bilirubin, Direct 0.2 mg/dL (0.0-0.3); Bilirubin, Indirect 0.4 mg/dL (0.1-0.7); Bilirubin, Total 0.6 mg/dL (0.1-1.0); Bun/Creatinine Ratio 24.3 (12.0-20.0); Calcium, Blood 8.6 mg/dL (8.5-10.1); Creatinine, Blood 1.36 mg/dL (0.40-1.00); Globulin, Blood 3.9 g/dL (2.2-4.0); Phosphorus, Blood 3.7 mg/dL (2.5-4.9); Potassium, Blood 4.5 mmol/L (3.5-5.5); Total Protein, Blood 6.8 g/dL (6.4-8.2)
== END | disposition home or self-care (01) ==
LOC: LAB SHORT 12:01 → LAB FUT 11-12 13:40
PROVIDERS: Internal Medicine Nephrology
DX: E10.65 Type 1 diabetes mellitus with hyperglycemia (principal); E10.22 Type 1 diabetes mellitus with diabetic chronic kidney disease; N18.30 Chronic kidney disease, stage 3 unspecified; D63.1 Anemia in chronic kidney disease; G60.9 Hereditary and idiopathic neuropathy, unspecified; R76.9 Abnormal immunological finding in serum, unspecified; R94.5 Abnormal results of liver function studies; R94.6 Abnormal results of thyroid function studies
CPT/HCPCS: 36415; 80053; 82248; 83036; 84100; 84436; 84443; 84480; 85025

== ENCOUNTER → 2020-11-20 | Outpatient (CLI) | payer OTHER | END | disposition home or self-care (01) | LOC: LAB SHORT 10:39 | DX: K65.4 Sclerosing mesenteritis (principal) | CPT/HCPCS: 88304; 88305 ==

== ENCOUNTER 2020-12-18 10:21 | Day surgery (SDC) | payer OTHER ==
[~2020-12-18] VITALS: Ht 160 cm; Wt 96.0 kg
[2020-12-18] MEDS ORDERED: TORSE20 PO (11:05)
--- NOTE | 2020-12-18 16:00 | NUR ---
PT RESTING COMFORTABLY. EATING LUNCH AT THIS TIME. R FEMORAL SITE REMAINS CLEAR. NO BLEEDING OR HEMATOMA NOTED. VSS. ADÁN, S/O HAS BEEN NOTIFIED AND UPDATED ON PT STATUS. PENDING DC AT 1715 TODAY.
--- NOTE | 2020-12-18 17:27 | NUR ---
PT UP TO RESTROOM WITH MINIMAL ASSISTANCE. PT DRESSES SELF WITH MINIMAL ASSISTANCE. R FEMORAL SITE REMAINS CLEAR. NO BLEEDING OR HEMATOMA NOTED. PT AND S/O (ADÁN) VERBALIZES UNDERSTANDING WRITTEN AND VERBAL ORDERS. PT IV DC'D. CATH INTACT. PREWSSURE DSG APPLIED. PT DC TO HOME VIA S/O BY JOSÉ MIGUEL.
== END 2020-12-18 23:19 | disposition home or self-care (01) ==
LOC: MHTC 10:21
DX: I70.1 Atherosclerosis of renal artery (principal); I25.10 Atherosclerotic heart disease of native coronary artery without angina pectoris; J45.909 Unspecified asthma, uncomplicated
CPT/HCPCS: 36251-LT; 36253-RT; 37236; 76937; 82947; 99152; 99153; C1725; C1760; C1769; C1876; C1887; J1644; J2250; J3010; J7030; J7042; J7050; Q9967

== ENCOUNTER → 2021-02-07 | Outpatient (CLI) | payer OTHER ==
[2021-02-07 19:31] LABS: U Amphetamine Screen Not Detected; U Barbituate Screen Not Detected; U Benzodiazapine Screen Not Detected; U Buprenorphine Screen Not Detected; U Cannabinoids Screen Not Detected; U Cocaine Screen Not Detected; U Methadone Screen Not Detected; U Methamphetamine Screen Not Detected; U Opiates Screen DETECTED; U Oxycodone Screen Not Detected; U Phencyclidine Screen Not Detected; U Propoxyphene Screen Not Detected
== END | disposition home or self-care (01) ==
LOC: LAB SHORT 17:13
PROVIDERS: Nurse Practitioner Family
DX: Z51.81 Encounter for therapeutic drug level monitoring (principal); Z79.891 Long term (current) use of opiate analgesic

== ENCOUNTER 2021-02-12 15:28 | Emergency (ER) | payer OTHER ==
[~2021-02-12] VITALS: Ht 165.1 cm; Wt 90.7 kg
== END 2021-02-12 20:12 | disposition home or self-care (01) ==
LOC: ER 15:28
DX: F11.23 Opioid dependence with withdrawal (principal); R11.2 Nausea with vomiting, unspecified; E11.40 Type 2 diabetes mellitus with diabetic neuropathy, unspecified; I10 Essential (primary) hypertension; I25.10 Atherosclerotic heart disease of native coronary artery without angina pectoris; E78.5 Hyperlipidemia, unspecified; Z87.891 Personal history of nicotine dependence; Z88.8 Allergy status to other drugs, medicaments and biological substances; Z79.4 Long term (current) use of insulin; Z79.82 Long term (current) use of aspirin; Z79.899 Other long term (current) drug therapy
CPT/HCPCS: 96361; 96374; 96375; 99284-25; A9270; J1170; J2060; J2550; J2765; J7030

== ENCOUNTER 2021-03-10 16:08 | Observation (INO) | payer OTHER ==
[~2021-03-10] VITALS: Ht 167.6 cm; Wt 90.3 kg
[2021-03-10] MEDS ORDERED: CLON.1 PO (16:29)
[2021-03-10] MEDS ORDERED: Aldactone25 MG PO (16:30)
[2021-03-10] MEDS ORDERED: ZENPEP DR 40,01 EACH PO (16:31)
[2021-03-10] MEDS ORDERED: VITAMIN D33000 UNIT PO (16:32)
[2021-03-10] MEDS ORDERED: CALCIUM PO (16:33)
[2021-03-10] MEDS ORDERED: CYAN1000I IM (16:34)
[2021-03-10 16:57] LABS: BASOPHILS ABSOLUTE AUTO 0.08 K/mm3 (0.00-0.23); BASOPHILS PERCENT AUTO 1 % (0-2); EOSINOPHILS ABSOLUTE AUTO 0.81 K/mm3 (0.00-0.68); EOSINOPHILS PERCENT AUTO 6 % (0-6); Hematocrit 41.1 % (33.0-51.0); IMMATURE GRAN ABSOLUTE AUTO 0.05 K/mm3 (0.00-0.10); IMMATURE GRAN PERCENT AUTO 0 % (0-1); LYMPHOCYTES PERCENT AUTO 18 % (21-46); MONOCYTES ABSOLUTE AUTO 1.43 K/mm3 (0.16-1.47); MONOCYTES PERCENT AUTO 11 % (4-13); Mean Corpuscular HGB 27.5 pg (26.0-34.0); Mean Corpuscular HGB Conc 31.6 g/dL (31.5-36.5); Mean Corpuscular Volume 87 fL (80-100); Mean Platelet Volume 9.9 fL (9.1-12.4); NEUTROPHILS ABSOLUTE AUTO 8.47 K/mm3 (1.96-9.15); NEUTROPHILS PERCENT AUTO 64 % (41-73); Platelet Count 631 K/mm3 (150-400); RDW Standard Deviation 47.9 fL (35.1-46.3); Red Blood Cell Count 4.73 M/mm3 (3.80-5.20); White Blood Cell Count 13.24 K/mm3 (4.00-11.30)
[2021-03-10 17:23] LABS: Albumin, Blood 2.6 g/dL (3.4-5.0); Albumin/Globulin Ratio 0.5 (0.8-1.8); Bilirubin, Total 0.3 mg/dL (0.1-1.0); Bun/Creatinine Ratio 27.1 (12.0-20.0); Calcium, Blood 9.6 mg/dL (8.5-10.1); Creatinine, Blood 1.33 mg/dL (0.40-1.00); Globulin, Blood 4.8 g/dL (2.2-4.0); Potassium, Blood 4.1 mmol/L (3.5-5.5); Total Protein, Blood 7.4 g/dL (6.4-8.2); Troponin I 0.046 ng/mL (0.000-0.040)
[2021-03-10 21:40] LABS: Influenza A, PCR NEGATIVE (NEGATIVE); Influenza B, PCR NEGATIVE (NEGATIVE); Resp Syncytial Virus, PCR NEGATIVE (NEGATIVE); SARS-Cov-2 (COVID-19) PCR, MMC NEGATIVE (NEGATIVE)
[2021-03-11 05:56] LABS: BASOPHILS ABSOLUTE AUTO 0.09 K/mm3 (0.00-0.23); BASOPHILS PERCENT AUTO 1 % (0-2); EOSINOPHILS ABSOLUTE AUTO 0.54 K/mm3 (0.00-0.68); EOSINOPHILS PERCENT AUTO 4 % (0-6); Hematocrit 35.4 % (33.0-51.0); Hemoglobin 11.4 g/dL (11.5-16.0); IMMATURE GRAN ABSOLUTE AUTO 0.07 K/mm3 (0.00-0.10); IMMATURE GRAN PERCENT AUTO 1 % (0-1); LYMPHOCYTES PERCENT AUTO 25 % (21-46); MONOCYTES ABSOLUTE AUTO 1.59 K/mm3 (0.16-1.47); MONOCYTES PERCENT AUTO 12 % (4-13); Mean Corpuscular HGB 27.2 pg (26.0-34.0); Mean Corpuscular HGB Conc 32.2 g/dL (31.5-36.5); Mean Corpuscular Volume 85 fL (80-100); NEUTROPHILS ABSOLUTE AUTO 7.86 K/mm3 (1.96-9.15); NEUTROPHILS PERCENT AUTO 58 % (41-73); Platelet Count 540 K/mm3 (150-400); RDW Coefficient Variation 14.9 % (11.7-14.2); RDW Standard Deviation 45.5 fL (35.1-46.3); Red Blood Cell Count 4.19 M/mm3 (3.80-5.20); White Blood Cell Count 13.55 K/mm3 (4.00-11.30)
[2021-03-11 06:18] LABS: Albumin/Globulin Ratio 0.5 (0.8-1.8); Bilirubin, Total 0.3 mg/dL (0.1-1.0); Bun/Creatinine Ratio 32.6 (12.0-20.0); Calcium, Blood 8.9 mg/dL (8.5-10.1); Creatinine, Blood 1.35 mg/dL (0.40-1.00); Globulin, Blood 4.1 g/dL (2.2-4.0); Magnesium, Blood 1.7 mg/dL (1.6-2.4); Potassium, Blood 4.4 mmol/L (3.5-5.5); Total Protein, Blood 6.1 g/dL (6.4-8.2); Troponin I 0.05 ng/mL (0.000-0.040)
--- NOTE | 2021-03-11 11:12 | NUR ---
Echocardiogram completed.
[2021-03-11] MEDS ORDERED: Calcium Carbon500 MG PO (13:27)
--- NOTE | 2021-03-11 13:36 | NUR ---
DISCHARGE DISCHARGE PACKET COMPLETED. MEDICATIONS FAXED TO PERFERRED PHARMACY. PCP TO CALL PATIENT FOR FOLLOW UP. PACKET SENT TO ER TO DISCHARGE PATIENT.
== END 2021-03-11 14:01 | disposition home or self-care (01) ==
LOC: ER 16:08 → ERHOLD 16:09
PROVIDERS: Emergency Medicine; ADMIT Internal Medicine
DX: R55 Syncope and collapse (principal); E11.649 Type 2 diabetes mellitus with hypoglycemia without coma; N17.9 Acute kidney failure, unspecified; E03.9 Hypothyroidism, unspecified; I25.10 Atherosclerotic heart disease of native coronary artery without angina pectoris; G89.29 Other chronic pain; I10 Essential (primary) hypertension; E78.5 Hyperlipidemia, unspecified; J44.9 Chronic obstructive pulmonary disease, unspecified; Z87.891 Personal history of nicotine dependence; Z88.5 Allergy status to narcotic agent; Z88.8 Allergy status to other drugs, medicaments and biological substances; Z79.4 Long term (current) use of insulin; Z79.82 Long term (current) use of aspirin; Z79.899 Other long term (current) drug therapy; Z20.822 Contact with and (suspected) exposure to COVID-19
CPT/HCPCS: 0241U; 36415; 71045; 80053; 82947; 83036; 83735; 83880; 84484; 85025; 93005; 93010; 93308; 93321; 99285-25; A9270; J0360; J1650; J1815

== ENCOUNTER → 2021-06-16 | Outpatient (CLI) | payer OTHER ==
[~2021-06-16] MED LIST changes: +Aldactone25 MG PO; +CALCIUM PO; +CYAN1000I IM; +Calcium Carbon500 MG PO; +VITAMIN D33000 UNIT PO
== END | disposition home or self-care (01) ==
LOC: LAB SHORT 07:29 → PLD 07:29
DX: D48.5 Neoplasm of uncertain behavior of skin (principal)
CPT/HCPCS: 88304

== ENCOUNTER → 2021-07-11 | Outpatient (CLI) | payer OTHER ==
[2021-07-11 18:34] LABS: U Amphetamine Screen Not Detected; U Barbituate Screen Not Detected; U Benzodiazapine Screen Not Detected; U Cocaine Screen Not Detected; U Methamphetamine Screen Not Detected; U Opiates Screen DETECTED
[2021-07-11 18:35] LABS: U Buprenorphine Screen Not Detected; U Cannabinoids Screen Not Detected; U Methadone Screen Not Detected; U Oxycodone Screen Not Detected; U Phencyclidine Screen Not Detected; U Propoxyphene Screen Not Detected
== END | disposition home or self-care (01) ==
LOC: LAB SHORT 16:43 → LAB 16:43
PROVIDERS: Family Medicine
DX: Z51.81 Encounter for therapeutic drug level monitoring (principal); Z79.899 Other long term (current) drug therapy

== ENCOUNTER 2021-12-13 15:30 | Emergency (ER) | payer OTHER ==
[~2021-12-13] VITALS: Ht 167.6 cm; Wt 90.7 kg
== END 2021-12-13 17:40 | disposition home or self-care (01) ==
LOC: ER 15:30
DX: S00.11XA Contusion of right eyelid and periocular area, initial encounter (principal); I10 Essential (primary) hypertension; I25.10 Atherosclerotic heart disease of native coronary artery without angina pectoris; E78.5 Hyperlipidemia, unspecified; E11.40 Type 2 diabetes mellitus with diabetic neuropathy, unspecified; W18.30XA Fall on same level, unspecified, initial encounter; W22.03XA Walked into furniture, initial encounter; Z88.8 Allergy status to other drugs, medicaments and biological substances; Z88.5 Allergy status to narcotic agent; Z79.899 Other long term (current) drug therapy; Z79.4 Long term (current) use of insulin; Z79.02 Long term (current) use of antithrombotics/antiplatelets; Z79.82 Long term (current) use of aspirin; Z87.891 Personal history of nicotine dependence
CPT/HCPCS: 70450

== ENCOUNTER 2022-05-26 17:37 | Inpatient (IN) | payer OTHER ==
[~2022-05-26] VITALS: Ht 167.6 cm; Wt 86.8 kg
[~2022-05-26 17:37] MED LIST changes: +ASPIR 8181 M1 PO; +CATAPRES0.1 MG PO; +CIPR250 PO; +Glucagon Emergen1 MG INJ; +HUMALOG MI100 UNIT/3; +INSULIN AS100 UNIT/6 SC; +INSULIN LI100 UNIT/6 SC; +NARCAN4 M1; +PRAVASTATIN SOD40 MG PO; +VITAMIN D5000 UNIT PO; +ZENPEP DR 5,001 EAC1 PO
[2022-05-26 18:15] LABS: BASOPHILS ABSOLUTE AUTO 0.15 K/mm3 (0.00-0.23); BASOPHILS PERCENT AUTO 1 % (0-2); EOSINOPHILS ABSOLUTE AUTO 0.01 K/mm3 (0.00-0.68); EOSINOPHILS PERCENT AUTO 0 % (0-6); Hematocrit 51.7 % (33.0-51.0); Hemoglobin 17.4 g/dL (11.5-16.0); IMMATURE GRAN ABSOLUTE AUTO 0.19 K/mm3 (0.00-0.10); IMMATURE GRAN PERCENT AUTO 1 % (0-1); LYMPHOCYTES ABSOLUTE AUTO 1.75 K/mm3 (0.84-5.20); LYMPHOCYTES PERCENT AUTO 9 % (21-46); MONOCYTES PERCENT AUTO 5 % (4-13); Mean Corpuscular HGB 30.2 pg (26.0-34.0); Mean Corpuscular HGB Conc 33.7 g/dL (31.5-36.5); Mean Corpuscular Volume 90 fL (80-100); Mean Platelet Volume 10.6 fL (9.1-12.4); NEUTROPHILS ABSOLUTE AUTO 16.58 K/mm3 (1.96-9.15); NEUTROPHILS PERCENT AUTO 84 % (41-73); Platelet Count 502 K/mm3 (150-400); Red Blood Cell Count 5.76 M/mm3 (3.80-5.20); White Blood Cell Count 19.68 K/mm3 (4.00-11.30)
[2022-05-26 18:30] LABS: Magnesium, Blood 1.9 mg/dL (1.6-2.4)
[2022-05-26 18:31] LABS: Alanine Aminotransfer (ALT/SGP 42 U/L (12-78); Albumin/Globulin Ratio 0.6 (0.8-1.8); Alk Phos 285 U/L (50-136); Anion Gap 20 mmol/L (6-16); Aspartate Aminotrans (AST/SGOT 40 U/L (12-37); Bilirubin, Direct <0.1 mg/dL (0.0-0.3); Bilirubin, Indirect Unable to Calculate mg/dL (0.1-0.7); Bilirubin, Total 1.1 mg/dL (0.1-1.0); Blood Urea Nitrogen 35 mg/dL (8-24); Bun/Creatinine Ratio 25.9 (12.0-20.0); CO2, Blood 16 mmol/L (21-32); Calcium, Blood 9.9 mg/dL (8.5-10.1); Chloride, Blood 99 mmol/L (98-108); Creatinine, Blood 1.35 mg/dL (0.40-1.00); Globulin, Blood 5.2 g/dL (2.2-4.0); Glomerular Filtration Rate 40 (60-); Glucose, Blood 380 mg/dL (70-99); Potassium, Blood 4.2 mmol/L (3.5-5.5); Sodium, Blood 135 mmol/L (136-145); Total Protein, Blood 8.2 g/dL (6.4-8.2)
[2022-05-26 18:40] LABS: Calcium, Ionized (POC) 0.93 mmol/L (1.10-1.46); Chloride (POC) 106 mmol/L (98-108); Creatinine (POC) 1.1 mg/dL (0.6-1.0); Glucose (ISTAT POC) 354 mg/dL (70-99); Hemoglobin (POC) 14.3 g/dL (12.0-16.0); Potassium (POC) 3.5 mmol/L (3.5-5.5); Sodium (POC) 139 mmol/L (135-148); Total CO2 (POC) 13 mmol/L (21-32)
[2022-05-26 18:40] LABS: PCO2 Arterial 41.1 mmHg (35-45); PO2 Arterial 119 mmHg (80-100)
[2022-05-26 18:41] LABS: pH Blood Arterial 7.14 (7.35-7.45)
--- NOTE | 2022-05-26 21:21 | NUR ---
PATIENT ARRIVING TO ICU FROM ED WITH RT BAGGING ETT. INSULIN DRIP 5 UNITS/HR, PROPOFOL 20 MCG, KRIDER, MAG RIDER ALL INFUSING. PATIENT TRANSFERRED TO BED WITH TRANSFER SHEET AND PLACED ON ICU MONITORS AND RT PLACED ETT TO VENT AC 14, TV 450, PEEP 5, FIO2 35% SUCTIONING BROWN BILE FROM MOUTH. OG PLACED TO LIS. DRAINING DARK BROWN BILE.
[2022-05-26 21:27] LABS: Thyroid Stimulating Hormone 3.14 uIU/mL (0.360-4.800)
[2022-05-26 21:42] LABS: Phosphorus, Blood 2.3 mg/dL (2.5-4.9)
[2022-05-26 23:34] LABS: BASOPHILS ABSOLUTE AUTO 0.17 K/mm3 (0.00-0.23); BASOPHILS PERCENT AUTO 1 % (0-2); EOSINOPHILS ABSOLUTE AUTO 0.03 K/mm3 (0.00-0.68); EOSINOPHILS PERCENT AUTO 0 % (0-6); Hemoglobin 15.9 g/dL (11.5-16.0); IMMATURE GRAN ABSOLUTE AUTO 0.27 K/mm3 (0.00-0.10); IMMATURE GRAN PERCENT AUTO 1 % (0-1); LYMPHOCYTES ABSOLUTE AUTO 2.75 K/mm3 (0.84-5.20); LYMPHOCYTES PERCENT AUTO 10 % (21-46); MONOCYTES ABSOLUTE AUTO 3.82 K/mm3 (0.16-1.47); MONOCYTES PERCENT AUTO 13 % (4-13); Mean Corpuscular HGB 29.9 pg (26.0-34.0); Mean Corpuscular HGB Conc 33.1 g/dL (31.5-36.5); Mean Corpuscular Volume 90 fL (80-100); Mean Platelet Volume 10.1 fL (9.1-12.4); NEUTROPHILS ABSOLUTE AUTO 21.87 K/mm3 (1.96-9.15); NEUTROPHILS PERCENT AUTO 76 % (41-73); Platelet Count 473 K/mm3 (150-400); RDW Coefficient Variation 15.2 % (11.7-14.2); RDW Standard Deviation 50.4 fL (35.1-46.3); Red Blood Cell Count 5.32 M/mm3 (3.80-5.20); White Blood Cell Count 28.91 K/mm3 (4.00-11.30)
[2022-05-26 23:53] LABS: Calcium, Blood 9.3 mg/dL (8.5-10.1); Creatinine, Blood 1.46 mg/dL (0.40-1.00); Potassium, Blood 4.6 mmol/L (3.5-5.5)
[2022-05-27 00:29] LABS: Source, Urine Foley catheter
[2022-05-27 00:36] LABS: Appearance, Urine Clear (Clear); Bilirubin, Urine Neg (Neg); Blood, Urine 4+ (Neg); Color, Urine Yellow (P-Yellow); Glucose Qualitative, Urine 4+ (Neg); Ketones, Urine 3+ (Neg); Leukocyte Esterase, Urine 1+ (Neg); Nitrite, Urine Neg (Neg); Protein, Urine 4+ (Neg); Specific Gravity, Urine 1.015 (1.003-1.022); Urobilinogen, Urine NORM (Normal)
[2022-05-27 00:55] LABS: Squamous Epithelial Cells Rare /hpf (Few)
[2022-05-27 00:56] LABS: Bacteria Mod /hpf
[2022-05-27] MEDS ORDERED: LOSA50 PO (02:07)
[2022-05-27] MEDS ORDERED: SOAANZ20 M1 PO (02:11)
[2022-05-27] MEDS ORDERED: GABA300 PO (02:12)
[2022-05-27 05:55] LABS: Albumin, Blood 2.3 g/dL (3.4-5.0); Anion Gap 11 mmol/L (6-16); Blood Urea Nitrogen 35 mg/dL (8-24); Bun/Creatinine Ratio 20.5 (12.0-20.0); CO2, Blood 21 mmol/L (21-32); Calcium, Blood 8.6 mg/dL (8.5-10.1); Chloride, Blood 108 mmol/L (98-108); Creatinine, Blood 1.71 mg/dL (0.40-1.00); Glomerular Filtration Rate 30 (60-); Glucose, Blood 197 mg/dL (70-99); Phosphorus, Blood 2.6 mg/dL (2.5-4.9); Potassium, Blood 3.3 mmol/L (3.5-5.5); Sodium, Blood 140 mmol/L (136-145)
--- NOTE | 2022-05-27 06:26 | NUR ---
DOCTOR LUCIEN NOTIFIED OF AM LABS, PLAN TO TRANSITION OFF INSULIN DRIP, AND REPLACE POTASSIUM
--- NOTE | 2022-05-27 06:45 | NUR ---
SUMMARY PATIENT REMAINS INTUBATED AND SEDATED. NIGHT PROGRESSED PATIENT MORE AWAKE OPENING EYES, AND COUGHING. PROPOFOL INCREASED TO 30 MCG TO HELP PATIENT OFELIA VENT. REMAINS AC 14, TV 450, PEEP 5 FIO2 35% SUCTIONING SMALL AMT OF CLEAR SECRETIONS VIA ETT. OG REMAINS IN PLACE WITH SMALL AMT OF LIQUID BROWN BILE DRAINED WITH LIS, CLAMPED AT THIS TIME DUE TO AM MEDICATIONS BEING GIVEN. PLAN TO TRANSITION PATIENT OFF INSULIN DRIP THIS MORNING.
[2022-05-27 08:27] LABS: BASOPHILS ABSOLUTE AUTO 0.09 K/mm3 (0.00-0.23); BASOPHILS PERCENT AUTO 0 % (0-2); Hematocrit 43.3 % (33.0-51.0); Hemoglobin 14.7 g/dL (11.5-16.0); LYMPHOCYTES ABSOLUTE AUTO 3.22 K/mm3 (0.84-5.20); LYMPHOCYTES PERCENT AUTO 13 % (21-46); MONOCYTES ABSOLUTE AUTO 3.79 K/mm3 (0.16-1.47); MONOCYTES PERCENT AUTO 15 % (4-13); Mean Corpuscular HGB 29.6 pg (26.0-34.0); Mean Corpuscular HGB Conc 33.9 g/dL (31.5-36.5); Mean Corpuscular Volume 87 fL (80-100); Mean Platelet Volume 10.6 fL (9.1-12.4); Platelet Count 428 K/mm3 (150-400); RDW Coefficient Variation 15.2 % (11.7-14.2); RDW Standard Deviation 48.5 fL (35.1-46.3); Red Blood Cell Count 4.97 M/mm3 (3.80-5.20)
[2022-05-27 08:28] LABS: EOSINOPHILS ABSOLUTE AUTO 5.88 K/mm3 (0.00-0.68); EOSINOPHILS PERCENT AUTO 24 % (0-6); IMMATURE GRAN ABSOLUTE AUTO 0.16 K/mm3 (0.00-0.10); IMMATURE GRAN PERCENT AUTO 1 % (0-1); NEUTROPHILS ABSOLUTE AUTO 11.56 K/mm3 (1.96-9.15); NEUTROPHILS PERCENT AUTO 47 % (41-73)
[2022-05-27 08:35] LABS: Magnesium, Blood 2.2 mg/dL (1.6-2.4); Phosphorus, Blood 2.8 mg/dL (2.5-4.9)
--- NOTE | 2022-05-27 08:46 | NUR ---
Assumed care of pt at 0700. Report received from Tess GARCIA. Propofol 30 mcg/kg/min. Insulin gtt stopped, per v/o hospitalist. D5 1/2 NS stopped. LR started. Pt's spouse and daughter in room.
--- NOTE | 2022-05-27 09:45 | NUR ---
Pt increasingly restless on ventilator. Family verbalizes concern because pt takes MS Contin BID and "she starts going through withdrawal very quickly". Measured CPOT and discussed with Dr Carrasco. V/O given for one time dose fentanyl. This helped pt achieve comfort. Dr Carrasco in to see patient, plan to start SBT.
--- NOTE | 2022-05-27 10:30 | NUR ---
SBT completed. Pt awake/agitated in absence of propofol. Continuously attempting to sit up in bed and reach for ETT. Follows directions inconsistently. Extubated at 1010. OG tube and restraints removed at this time as well. Placed on 2 LPM NC.
--- NOTE | 2022-05-27 13:30 | NUR ---
Pt is still drowsy. Awakens with gentle verbal stimulus. Follows commands. Does not maintain alertness for more than a few minutes. Continues with strict NPO. One dose labetalol given IV for high BP. Plan for another dose per v/o Dr Carrasco if SBP 190.
[2022-05-27 13:39] LABS: Influenza A, PCR NEGATIVE (NEGATIVE); Influenza B, PCR NEGATIVE (NEGATIVE); Resp Syncytial Virus, PCR NEGATIVE (NEGATIVE); SARS-Cov-2 (COVID-19) PCR, MMC NEGATIVE (NEGATIVE)
[2022-05-27 16:42] LABS: Hemoglobin 14.5 g/dL (11.5-16.0)
[2022-05-27 17:05] LABS: Bun/Creatinine Ratio 16.7 (12.0-20.0); Calcium, Blood 8.7 mg/dL (8.5-10.1); Creatinine, Blood 2.04 mg/dL (0.40-1.00); Potassium, Blood 3.9 mmol/L (3.5-5.5)
--- NOTE | 2022-05-27 17:53 | NUR ---
SUMMARY Neuro/Psych: Since extubation, pt has been drowsy and lethargic. She awakens to gentle verbal stimulus. She answers questions and follows commands, but inconsistently. She awakens either spontaneously or to gentle verbal stimulus. She is only able to stay alert for 60-90 seconds. For this reason, pt is NPO at this time. Family educated and they verbalize understanding. PERRL. Moves all extremities with equal strength and ROM. Family at bedside since 0700. Musc/ADLs: Initially total care for all ADLs. Pt remains total care for oral care. She does reposition independently. Requires 2 staff assist for boost in bed, but then pulls on side rail for right side-lying position regardless of how staff and turned her. Family states she prefers this position as it alleviates her back pain. Pain: Medicated with 50 mcg fentanyl once today, while intubated. Since then, no additional pain medication as CPOT has been 0. Pt has not received MS Contin as she has been NPO. Resp: Lungs coarse in upper [place], diminshed otherwise. Negative Flu/COVID/RSV swab. SpO2 90% or greater RA. Occasional cough. Producing scant amounts of witt/pink sputum. Plan to send specimen next time pt produces sputum bolus. Cardiac: SR per monitor. BP has been high. Pt has not been able to take home regimen of antihypertensives due to NPO. 2 doses of labetalol and 1 dose vasotec given. Pt responded well to vasotec and has had stable BP since. GI: NPO. OG tube removed with extubation. No BM this shift. : Low urine output today. Dr Carrasco notified. Bladder scan performed to ensure catheter was draining as expected. Bladder scan result [address] Carrasco ordered 2 L lactated ringers bolus. Notified provider of BUN/Creat/GFR on most recent labs. Skin: Unchanged from initial assessment.
--- NOTE | 2022-05-27 20:00 | NUR ---
ASSUMED CARE OF PT AT 1915. REPORT RECEIVED AT BEDSIDE. PT PRESENTS IN BED. PT'S IN ROOM AND PARTICIPATES IN REPORT. PT IN NO APPARENT DISTRESS AT THIS TIME. IS ABLE TO GIVE SPUTUM SAMPLE AFTER MOIST PRODUCTIVE COUGH. WHITISH IN COLOR. SAMPLE TO LAB FOR TESTING. WILL REVIEW CHART AND PLAN OF CARE FOR THIS PT.
--- NOTE | 2022-05-28 | NUR ---
IV FROM RIGHT FOREARM REMOVED AND NEW IV STARTED IN LEFT UA. PT TOLERATES THIS WELL. PT HAS BEEN MEDICATED WITH ZOFRAN FOR NAUSEA WITH SOME RELIEF. DID NEED TO SPEAK WITH DR RUFFIN ABOUT CONTINUED NAUSEA AND ALSO CONCERNING CONTINUED HYPERTENSION. ORDERS RECEIVED. MEDICATED PT WITH REGLAN 10MG WITH VERY GOOD RELIEF. PT, WHILE SLEEPING, WAS NOTED TO HAVE DESATURATION OF 85 PERCENT ON ROOM AIR. DID PLACE O2 AT 2 LITERS/MIN PER NASAL CANNULA. PT'S SATURATIONS MAINTAIN > 90 PERCENT. WILL CONTINUE TO MONITOR.
[2022-05-28 03:59] LABS: BASOPHILS ABSOLUTE AUTO 0.11 K/mm3 (0.00-0.23); BASOPHILS PERCENT AUTO 1 % (0-2); EOSINOPHILS ABSOLUTE AUTO 0.02 K/mm3 (0.00-0.68); EOSINOPHILS PERCENT AUTO 0 % (0-6); Hematocrit 37.9 % (33.0-51.0); Hemoglobin 12.6 g/dL (11.5-16.0); IMMATURE GRAN ABSOLUTE AUTO 0.15 K/mm3 (0.00-0.10); IMMATURE GRAN PERCENT AUTO 1 % (0-1); LYMPHOCYTES ABSOLUTE AUTO 3.27 K/mm3 (0.84-5.20); LYMPHOCYTES PERCENT AUTO 13 % (21-46); MONOCYTES ABSOLUTE AUTO 2.75 K/mm3 (0.16-1.47); MONOCYTES PERCENT AUTO 11 % (4-13); Mean Corpuscular HGB 29.9 pg (26.0-34.0); Mean Corpuscular HGB Conc 33.2 g/dL (31.5-36.5); Mean Corpuscular Volume 90 fL (80-100); Mean Platelet Volume 10.7 fL (9.1-12.4); NEUTROPHILS ABSOLUTE AUTO 18.03 K/mm3 (1.96-9.15); NEUTROPHILS PERCENT AUTO 74 % (41-73); Platelet Count 376 K/mm3 (150-400); RDW Coefficient Variation 15.8 % (11.7-14.2); RDW Standard Deviation 51.3 fL (35.1-46.3); Red Blood Cell Count 4.22 M/mm3 (3.80-5.20); White Blood Cell Count 24.33 K/mm3 (4.00-11.30)
[2022-05-28 04:26] LABS: Albumin, Blood 2.2 g/dL (3.4-5.0); Albumin/Globulin Ratio 0.6 (0.8-1.8); Bilirubin, Total 0.5 mg/dL (0.1-1.0); Calcium, Blood 8.4 mg/dL (8.5-10.1); Creatinine, Blood 1.88 mg/dL (0.40-1.00); Globulin, Blood 3.5 g/dL (2.2-4.0); Potassium, Blood 3.7 mmol/L (3.5-5.5); Total Protein, Blood 5.7 g/dL (6.4-8.2)
--- NOTE | 2022-05-28 05:23 | NUR ---
PT HAS BEEN MEDICATED FOR NAUSEA WITH ZOFRAN AND WITH REGLAN WITH VARYING DEGREE OF RELIEF. PT HAS MOIST PRODUCTIVE COUGH OF WHITE COLORED SECRETIONS. HAS BEEN ABLE TO MOVE HERSELF ABOUT IN BED ON HER OWN. BLOOD PRESSURES HAVE BEGUN TO INCREASE AGAIN. WILL CONTINUE TO MONITOR PT, AND WILL REPORT OFF TO ONCOMING RN.
--- NOTE | 2022-05-28 07:15 | NUR ---
Assumed care of PCU status patient at 0700. Report received from Lavell GARCIA. Pt awakens to gentle verbal stimulus. SpO2 90% or greater RA. SR per monitor. BP stable. Oral care done, assessed swallow. Pt tolerating thin liquids without signs of aspiration.
--- NOTE | 2022-05-28 09:15 | NUR ---
Dr Waldron in to see patient. Provider states pt to remain PCU status. May advance diet to full liquids.
--- NOTE | 2022-05-28 17:28 | NUR ---
SHIFT SUMMARY: NEURO/PSYCH: PT HAS BEEN DROWSY. SHE RESPONDS TO VERBAL COMMANDS BUT IS ONLY ABLE TO STAY ENGAGED FOR ABOUT 90 - 120 SECONDS. FAMILY AT BEDSIDE SINCE 0700. MUSC/ADL: PT CAN DRINK WATER TO TAKE MEDICATIONS. USED LIFT TO MOVE PT TO RECLINER. PT FELL ASLEEP BETWEEN ORAL MEDICATION ADMINISTRATIONS. PHYSCIAL THERAPY AND OCCUPATIONAL THERAPY IN TO SEE PT. SHE CAN REPOSITION INDEPENDENTLY AND PREFERS TO LAY ON RIGHT SIDE. PT HAS FULL ROM FOR UPPER EXTEREMITIES, LIMITED ROM FOR LOWER EXTREMITIES. PAIN: PT MEDICATED WITH MS CONTIN AT 0800. NO ADDITIONAL PAIN MEDICATIONS HAVE BEEN GIVEN. RESP: LUNGS CLEAR IN BOTH UPPER SWANN. DIMINISHED SOUND IN BOTH LOWER LOBES. SPO2 90% OR GREATER ON ROOM AIR. OCCASIONAL COUGH WITH LITTLE TO NO SPUTUM PRODUCTION. CARDIAC: SINUS RHYTHM PER MONITOR. HYPERTENSIVE MEDICATIONS GIVEN. GI: NO BOWEL MOVEMENT THIS SHIFT. PT STATES GENERAL PAIN WITH PALPATION OF ABDOMEN. : URINE OUTPUT 1160ML. SKIN: SCATTERED BRUISING ON RIGHT ARM AND ABDOMEN.
--- NOTE | 2022-05-28 20:00 | NUR ---
ASSUMED CARE OF PT AT 1900. REPORT RECEIVED. PT PRESENTS IN BED SLEEPING. PT IN NO APPARENT DISTRESS. MAINTAINS OXYGEN SATURATIONS > 90 PERCENT ON ROOM AIR. WILL REVIEW CHART AND PLAN OF CARE FOR THIS PT.
--- NOTE | 2022-05-29 02:46 | NUR ---
PT HAD REFUSED HER MS CONTIN EVENING DOSE. PT STATES THAT AT HOME SHE HAS BEEN TRYING TO DECREASE HER USE OF PAIN MEDICATION AND HAS ONLY BEEN TAKING THIS ONCE PER DAY. SHE HAS SUBSEQUENTLY CALL AND REQUESTED NEURONTIN WHICH SHE TAKES AT HOME. WAS INFORMED THAT THIS HAD NOT BEEN REORDERED IN HOSPITAL. PT DID STATE THAT SHE WOULD TAKE HER EVENING MS CONTIN. THIS WAS GIVEN. WILL INFORM NEXT SHIFT THAT NEED TO STAGGER MED WOULD BE APPROPRIATE. PT HAS BEEN MUCH MORE LUCID DURING THE EVENING. WAS ABLE TO STAY AWAKE AND HAVE FULL CONVERSATION. TAKES HER PO MEDS WITH MILK. NO COUGH NOTED. PT DOES HAVE OCCASSIONAL PRODUCTIVE COUGH. PROVIDED YAUNKEUR FOR PT TO BE ABLE TO SELF CLEAR SECRETIONS. WILL CONTINUE TO MONITOR PT.
[2022-05-29 03:25] LABS: BASOPHILS ABSOLUTE AUTO 0.14 K/mm3 (0.00-0.23); BASOPHILS PERCENT AUTO 1 % (0-2); EOSINOPHILS ABSOLUTE AUTO 0.38 K/mm3 (0.00-0.68); EOSINOPHILS PERCENT AUTO 2 % (0-6); Hematocrit 37.6 % (33.0-51.0); Hemoglobin 12.7 g/dL (11.5-16.0); IMMATURE GRAN ABSOLUTE AUTO 0.06 K/mm3 (0.00-0.10); IMMATURE GRAN PERCENT AUTO 0 % (0-1); LYMPHOCYTES ABSOLUTE AUTO 2.54 K/mm3 (0.84-5.20); LYMPHOCYTES PERCENT AUTO 16 % (21-46); MONOCYTES ABSOLUTE AUTO 1.94 K/mm3 (0.16-1.47); MONOCYTES PERCENT AUTO 12 % (4-13); Mean Corpuscular HGB Conc 33.8 g/dL (31.5-36.5); Mean Corpuscular Volume 89 fL (80-100); Mean Platelet Volume 10.5 fL (9.1-12.4); NEUTROPHILS ABSOLUTE AUTO 11.03 K/mm3 (1.96-9.15); NEUTROPHILS PERCENT AUTO 68 % (41-73); Platelet Count 371 K/mm3 (150-400); RDW Coefficient Variation 15.6 % (11.7-14.2); RDW Standard Deviation 50.3 fL (35.1-46.3); Red Blood Cell Count 4.24 M/mm3 (3.80-5.20); White Blood Cell Count 16.09 K/mm3 (4.00-11.30)
[2022-05-29 03:43] LABS: Albumin/Globulin Ratio 0.6 (0.8-1.8); Bilirubin, Total 0.5 mg/dL (0.1-1.0); Bun/Creatinine Ratio 16.7 (12.0-20.0); Calcium, Blood 8.3 mg/dL (8.5-10.1); Creatinine, Blood 1.68 mg/dL (0.40-1.00); Globulin, Blood 3.6 g/dL (2.2-4.0); Total Protein, Blood 5.6 g/dL (6.4-8.2)
--- NOTE | 2022-05-29 05:48 | NUR ---
PT HAS BEEN ABLE TO MOVE ABOUT IN BED ON HER OWN. DID HAVE SHORT PERIOD OF TIME WHERE - WHILE ASLEEP DESATRUATED TO [address] 2 LITERS OXYGEN PER NASAL CANNULA. AFFECTIVE TO KEEP OXYGEN SATURATIONS > 90 PERCENT. PT HAS MADE ONE ATTEMPT TO HAVE BM PER BEDPAN. PT STATED THAT SHE WAS TOO UNCOMFORTABLE TO REMAIN ON BEDPAN. MEDICATED PT WITH 25 MCG'S FENTANYL. PT STATES SHE WILL ATTEMPT BM LATER. WILL CONTINUE TO MONITOR PT, AND WILL REPORT OFF TO ONCOMING RN.
--- NOTE | 2022-05-29 07:30 | NUR ---
ASSUMED CARE OF PT AT 0715 BEDSIDE REPORT RECEIVED FROM RADHA BORJAS. PT C/O NAUSEA, HAS BEEN MEDICATED WITH REGLAN WITHOUT RELIEF. A/O, DROWSY AT TIMES BUT A/O X4. BP REMAINS HIGH, PO ANTIHYPERTENSIVES SCHEDULED. AT BEDSIDE, UPDATED ON POC AND ALL QUESTIONS ANSWERED. GOAL IS TO GET NAUSEA UNDER CONTROL AND CONTINUE TO MONITOR BP. RN TO CONTINUE TO MONITOR.
--- NOTE | 2022-05-29 14:13 | NUR ---
SHIFT SUMMARY NEURO: A/O, CONVERSANT, MENTAL STATUS IMPROVED SIGNIFICANTLY IN LAST 24 HOURS. CARDIAC: SR, BP ELEVATED PRIOR TO PO ANTIHYPERTENSIVES. RESOLVED AFTER MED ADMINISTRATION. OCCASIONAL ECTOPY (PVC'S) NOTED. RESP: 2L NC, LUNGS CTA/DIMISHED BASES VS. SHALLOW BREATHING. ENCOURAGED DEEP BREATHING/COUGH. GI: CLEAR LIQUID DIET, PT DID NOT EAT BREAKFAST, ATE LUNCH AT 1400 DUE TO NAUSEA THIS AM. SEVERE NAUSEA TREATED WITH ZOFRAN AND REGLAN WITH NO RELIEF. ORDER RECIEVED FOR PHENERGAN IV, GIVEN WITH GOOD RELIEF OF NAUSEA. : ESTRADA TO GRAVITY, PATENT AND DRAINING CLEAR YELLOW URINE. SKIN: BRUISING TO BILAT AC, NO CHANGE, NO OTHER SKIN ISSUES NOTED. IV: PIV X 1, NS AT 150ML/HR STARTED BY MD DUE TO PT NAUSEA, NOT EATING. AT BEDSIDE, HELPFUL WITH CARE. BLOOD GLUCOSE CHECKED ORDERED. PT HAS CONTINUOUS GLUCOSE MONITOR IN PLACE, OK TO KEEP IN PLACE BUT MUST USE HOSPITAL EQUIPMENT FOR SLIDING SCALE COVERAGE.
--- NOTE | 2022-05-29 16:30 | NUR ---
ASSUMED CARE OF PT THIS AFTERNOON. PT HAS BEEN VISITING WITH FAMILY. NO SIGN OF DISTRESS. PT TRANSFERED TO MEDICAL FLOOR ROOM 334.
--- NOTE | 2022-05-29 17:21 | NUR ---
PCU TRANSFER Patient moved to medical floor, 2x RN skin check performed, large purple bruise on LUE. BLE brown/discolored, no open wounds noted. Patient is AOx4, KAW, but can read lips. Gutiérrez cath in place, draining to gravity. Patient c/o severe back pain when repositioning in bed. Vitals stable. Will continue plan of care, awaiting discharge planning.
--- NOTE | 2022-05-30 03:53 | NUR ---
SHIFT NOTE PATIENT SLEPT WELL THROUGHOUT THE NIGHT, LORAINE AND COOPERATIVE WITH CARE. DIMINISHED LUNG SOUNDS, NO EDEMA NOTED. IV SL AND WNL. 2L NC WHEN SLEEPING. SOME HTN, OTHERWISE VSS. TOLERATING FULL LIQIOD DIET, NO N/V. FC DRAING TO GRAVITY. NO OTHER ISSUES TO REPORT. WILL CONT TO MONITOR.
[2022-05-30 06:33] LABS: Bun/Creatinine Ratio 18.9 (12.0-20.0); Calcium, Blood 7.3 mg/dL (8.5-10.1); Creatinine, Blood 1.75 mg/dL (0.40-1.00); Potassium, Blood 4.4 mmol/L (3.5-5.5)
[2022-05-30 06:46] LABS: BASOPHILS ABSOLUTE AUTO 0.12 K/mm3 (0.00-0.23); BASOPHILS PERCENT AUTO 1 % (0-2); EOSINOPHILS ABSOLUTE AUTO 1.58 K/mm3 (0.00-0.68); EOSINOPHILS PERCENT AUTO 10 % (0-6); Hematocrit 37.7 % (33.0-51.0); Hemoglobin 12.2 g/dL (11.5-16.0); IMMATURE GRAN ABSOLUTE AUTO 0.06 K/mm3 (0.00-0.10); IMMATURE GRAN PERCENT AUTO 0 % (0-1); LYMPHOCYTES ABSOLUTE AUTO 3.36 K/mm3 (0.84-5.20); LYMPHOCYTES PERCENT AUTO 22 % (21-46); MONOCYTES ABSOLUTE AUTO 1.68 K/mm3 (0.16-1.47); MONOCYTES PERCENT AUTO 11 % (4-13); Mean Corpuscular HGB 29.9 pg (26.0-34.0); Mean Corpuscular HGB Conc 32.4 g/dL (31.5-36.5); Mean Corpuscular Volume 92 fL (80-100); Mean Platelet Volume 10.7 fL (9.1-12.4); NEUTROPHILS ABSOLUTE AUTO 8.61 K/mm3 (1.96-9.15); NEUTROPHILS PERCENT AUTO 56 % (41-73); Platelet Count 354 K/mm3 (150-400); RDW Coefficient Variation 15.7 % (11.7-14.2); RDW Standard Deviation 53.6 fL (35.1-46.3); Red Blood Cell Count 4.08 M/mm3 (3.80-5.20); White Blood Cell Count 15.41 K/mm3 (4.00-11.30)
--- NOTE | 2022-05-30 19:53 | NUR ---
SUMMARY- PT A/O X4. TOLERATING FOOD AND FLUIDS. BLOOD SUGARS STARTED HIGH 300'S THIS AM, PT GOT HER LANTUS INCREASED TO 20UNITS AM. GAVE HUMALON 15U AT BOTH BREAK AND LUNCH FOR OVER 350. SUGARS DOWN TO 126 AT DINNER TIME, AND PT READ ON HER OWN SIMRAN 56 AROUND 1830. GOT PT PUTTIND AND CHEESE. CHECKED ON [facility] FOR 1899. CHRONIC PAIN CONTROLLED WITH AM MS CONTIN. PT GOT UP TO CHAIR WITH PHYSICAL THERAPY FOR DINNER AND SAT UP FOR A FEW HOURS. TOLERATED ACT WELL. AWAITING PLACEMENT. REPORTED TO YING RN
--- NOTE | 2022-05-31 03:46 | NUR ---
SHIFT SUMMARY AT SHIFT START PT ALERTED THIS RN PT BG IN THE 70'S FROM PT CHECKING ON IMPLANTED GLUCOSE MONITORING. ADMINISTERED SNACKS. PT BG DOWN TO 66 STILL. ADMINISTERED ORANGE JUICE AND MORE SNACKS. BG UP TO 109. AROUND MIDNIGHT, PT BG 158 ON IMPLANTED MONITOR. BP ELEVATED THIS AM, ADMINISTERED PRN HYDRALYZINE THAT WAS EFFECTIVE. NO FURTHER OVERNIGHT EVENTS. PT STATES PAIN IS CONTROLLED AND REFUSED 2100 MORPHINE. PT DENIES ANY S/S OF DISTRESS. PT ORIENTED X4, ABLE TO MAKE NEEDS KNOWN. CALL LIGHT IN REACH.
[2022-05-31 09:01] LABS: BASOPHILS ABSOLUTE AUTO 0.13 K/mm3 (0.00-0.23); BASOPHILS PERCENT AUTO 1 % (0-2); EOSINOPHILS ABSOLUTE AUTO 1.61 K/mm3 (0.00-0.68); EOSINOPHILS PERCENT AUTO 11 % (0-6); Hematocrit 39.2 % (33.0-51.0); Hemoglobin 12.7 g/dL (11.5-16.0); IMMATURE GRAN ABSOLUTE AUTO 0.09 K/mm3 (0.00-0.10); IMMATURE GRAN PERCENT AUTO 1 % (0-1); LYMPHOCYTES ABSOLUTE AUTO 3.95 K/mm3 (0.84-5.20); LYMPHOCYTES PERCENT AUTO 26 % (21-46); MONOCYTES ABSOLUTE AUTO 1.77 K/mm3 (0.16-1.47); MONOCYTES PERCENT AUTO 12 % (4-13); Mean Corpuscular HGB 29.5 pg (26.0-34.0); Mean Corpuscular HGB Conc 32.4 g/dL (31.5-36.5); Mean Corpuscular Volume 91 fL (80-100); Mean Platelet Volume 11.1 fL (9.1-12.4); NEUTROPHILS ABSOLUTE AUTO 7.43 K/mm3 (1.96-9.15); NEUTROPHILS PERCENT AUTO 50 % (41-73); Platelet Count 365 K/mm3 (150-400); RDW Coefficient Variation 15.2 % (11.7-14.2); RDW Standard Deviation 50.7 fL (35.1-46.3); White Blood Cell Count 14.98 K/mm3 (4.00-11.30)
[2022-05-31 09:23] LABS: Albumin/Globulin Ratio 0.5 (0.8-1.8); Bilirubin, Total 0.3 mg/dL (0.1-1.0); Bun/Creatinine Ratio 26.5 (12.0-20.0); Creatinine, Blood 1.85 mg/dL (0.40-1.00); Globulin, Blood 4.1 g/dL (2.2-4.0); Potassium, Blood 4.6 mmol/L (3.5-5.5); Total Protein, Blood 6.1 g/dL (6.4-8.2)
--- NOTE | 2022-05-31 20:15 | NUR ---
SUMMARY- PT A/O X3-4, UP IN CHAIR FOR BREAKFAST. TOLERATING FOOD AND FLUIDS. BLOOD SUGAR CHECKS AC/HS, COVERED WITH SS HUMALOG, ADJUSTED LANTUS DOWN TO PREVENT DIVE IN SUGARS HS. CHRONIC PAINCONTROLLED WITH MS CONTIN AM DOSE. PT SLEEPY TODAY AND NAPPED ABOUT 4 HOURS. AWAKENED EASILY, TOLERATES ALL MEALS. AMBULATING SBA TO BATHROOM, HAS BEEN VOIDING WITHOUT DIFFICULTY SINCE ESTRADA DC'D 1230. IV DC'D AND NO IV ORDER OBTAINED- CHANGED PROTONIX TO ORAL. HAVING NO HEART BURN OR REPORTED CHEST PAIN. HERE MOST OF THE DAY, INVOLVED IN CARE. WILL BE HERE AFTER 9, HE HAS AN AM MD APT. REPORTED OFF TO YING GARCIA.
--- NOTE | 2022-06-01 04:51 | NUR ---
SHIFT SUMMARY NO OVERNIGHT EVENTS. PT UP AMBULATING SBA HAND HELD ASSIST TO BATHROOM. NO ISSUES URINATING. BLOOD SUGARS REMAIN STABLE. BP SLIGHTLY ELEVATED. PT REQUESTING SLEEPING MEDICATION, RECIEVED NEW ORDER FOR X1 DOSE TRAZODONE. PT CALM AND PLEASANT. PT ORIENTED X4, ABLE TO MAKE NEEDS KNOWN, CALL LIGHT IN REACH.
[2022-06-01] MEDS ORDERED: GABA100 PO (15:15)
[2022-06-01] MEDS ORDERED: LOSA25 PO (15:20)
[2022-06-01 15:24] LABS: Influenza A, PCR NEGATIVE (NEGATIVE); Influenza B, PCR NEGATIVE (NEGATIVE); Resp Syncytial Virus, PCR NEGATIVE (NEGATIVE); SARS-Cov-2 (COVID-19) PCR, MMC NEGATIVE (NEGATIVE)
[2022-06-01] MEDS ORDERED: ALBU2.5V5 INH (15:24)
[2022-06-01] MEDS ORDERED: VISBIOME 112.51 EACH PO (15:25)
--- NOTE | 2022-06-01 16:35 | NUR ---
DISCHARGE NOTE- PT DISCHARGED TO [facility] FOR REHAB. PT FAMILY WILL TRANSPORT THE PT. PT WAS ESCORTED OUT VIA WC BY THE [employer] AND [employer]PLIER. ATTEMPTED TO CALL REPORT TO [facility] NO ANSWER. WILL TRY AGAIN LATER.
== END 2022-06-01 16:23 | DRG 637 ==
LOC: ER 17:37 → ICUE 20:33 → MEDS 20:33 → ICUW 20:33 → ICUE 21:19 → MEDS 05-29 16:51
PROVIDERS: Family Medicine; Internal Medicine; Internal Medicine Critical Care Medicine; Student in an Organized Health Care Education/Training Program; ADMIT Internal Medicine
PROC: 0BH18EZ Insertion of Endotracheal Airway into Trachea, Via Natural or Artificial Opening Endoscopic (ICD-10-PCS; principal; 2022-05-26)
PROC: 5A1935Z Respiratory Ventilation, Less than 24 Consecutive Hours (ICD-10-PCS; 2022-05-26)
DX: E10.10 Type 1 diabetes mellitus with ketoacidosis without coma (principal); I21.A1 Myocardial infarction type 2; J96.01 Acute respiratory failure with hypoxia; K92.0 Hematemesis; R65.10 Systemic inflammatory response syndrome (SIRS) of non-infectious origin without acute organ dysfunction; N17.9 Acute kidney failure, unspecified; Z20.822 Contact with and (suspected) exposure to COVID-19; Z78.1 Physical restraint status; I25.10 Atherosclerotic heart disease of native coronary artery without angina pectoris; M54.9 Dorsalgia, unspecified; G89.29 Other chronic pain; E78.5 Hyperlipidemia, unspecified; F41.9 Anxiety disorder, unspecified; E83.51 Hypocalcemia; T68.XXXA Hypothermia, initial encounter; I95.9 Hypotension, unspecified; E86.1 Hypovolemia; I12.9 Hypertensive chronic kidney disease with stage 1 through stage 4 chronic kidney disease, or unspecified chronic kidney disease; N18.30 Chronic kidney disease, stage 3 unspecified; E10.22 Type 1 diabetes mellitus with diabetic chronic kidney disease; G40.909 Epilepsy, unspecified, not intractable, without status epilepticus; R91.8 Other nonspecific abnormal finding of lung field; E10.40 Type 1 diabetes mellitus with diabetic neuropathy, unspecified; Z95.5 Presence of coronary angioplasty implant and graft; Z90.49 Acquired absence of other specified parts of digestive tract; Z90.710 Acquired absence of both cervix and uterus; Z98.890 Other specified postprocedural states; Z88.6 Allergy status to analgesic agent; Z88.8 Allergy status to other drugs, medicaments and biological substances; Z79.4 Long term (current) use of insulin; Z79.2 Long term (current) use of antibiotics; Z79.02 Long term (current) use of antithrombotics/antiplatelets; Z79.82 Long term (current) use of aspirin; Z79.899 Other long term (current) drug therapy
CPT/HCPCS: 0241U; 31500; 36415; 36600; 51702; 70450; 71275; 74174; 80047; 80048; 80053; 80069; 80076; 81001; 82803; 82947; 83605; 83690; 83735; 83880; 84100; 84145; 84443; 84484; 85014; 85018; 85025; 87040; 87086; 93005; 93010; 94002; 94003; 94640; 94664; 96365-59; 96366-59; 96368; 96375-59; 97110; 97116; 97162; 97166; 97530; 97535; 99291-25; A9270; C9113; J0360; J0610; J0696; J1650; J1815; J1953; J2060; J2405; J2550; J2704; J2765; J3010; J3475; J3480; J7030; J7042; J7120; P9047; Q9967

== ENCOUNTER 2022-07-21 13:25 | Emergency (ER) | payer OTHER ==
[~2022-07-21] VITALS: Ht 165.1 cm; Wt 83.9 kg
[~2022-07-21 13:25] MED LIST changes: +ALBU2.5V5 INH; +SOAANZ20 M1 PO; +VISBIOME 112.51 EACH PO
[2022-07-21 14:48] LABS: BASOPHILS ABSOLUTE AUTO 0.16 K/mm3 (0.00-0.23); BASOPHILS PERCENT AUTO 1 % (0-2); EOSINOPHILS ABSOLUTE AUTO 0.12 K/mm3 (0.00-0.68); EOSINOPHILS PERCENT AUTO 1 % (0-6); Hematocrit 44.2 % (33.0-51.0); Hemoglobin 14.4 g/dL (11.5-16.0); IMMATURE GRAN ABSOLUTE AUTO 0.06 K/mm3 (0.00-0.10); IMMATURE GRAN PERCENT AUTO 1 % (0-1); LYMPHOCYTES PERCENT AUTO 15 % (21-46); MONOCYTES PERCENT AUTO 7 % (4-13); Mean Corpuscular HGB 29.3 pg (26.0-34.0); Mean Corpuscular HGB Conc 32.6 g/dL (31.5-36.5); Mean Corpuscular Volume 90 fL (80-100); Mean Platelet Volume 10.4 fL (9.1-12.4); NEUTROPHILS ABSOLUTE AUTO 8.79 K/mm3 (1.96-9.15); NEUTROPHILS PERCENT AUTO 76 % (41-73); Platelet Count 520 K/mm3 (150-400); RDW Coefficient Variation 15.5 % (11.7-14.2); RDW Standard Deviation 51.3 fL (35.1-46.3); Red Blood Cell Count 4.92 M/mm3 (3.80-5.20); White Blood Cell Count 11.63 K/mm3 (4.00-11.30)
[2022-07-21 15:19] LABS: Albumin, Blood 2.5 g/dL (3.4-5.0); Albumin/Globulin Ratio 0.6 (0.8-1.8); Bilirubin, Total 0.6 mg/dL (0.1-1.0); Calcium, Blood 9.5 mg/dL (8.5-10.1); Creatinine, Blood 1.18 mg/dL (0.40-1.00); Globulin, Blood 4.4 g/dL (2.2-4.0); Potassium, Blood 4.8 mmol/L (3.5-5.5); Total Protein, Blood 6.9 g/dL (6.4-8.2)
[2022-07-21] MEDS ORDERED: ONDA4ODT SL (15:30)
== END 2022-07-21 16:15 | disposition home or self-care (01) ==
LOC: ER 13:25
PROVIDERS: Physician Assistant
DX: R11.0 Nausea (principal); T46.5X1A Poisoning by other antihypertensive drugs, accidental (unintentional), initial encounter; E11.9 Type 2 diabetes mellitus without complications; I10 Essential (primary) hypertension; I25.10 Atherosclerotic heart disease of native coronary artery without angina pectoris; E78.5 Hyperlipidemia, unspecified; Z88.5 Allergy status to narcotic agent; Z88.8 Allergy status to other drugs, medicaments and biological substances; Z79.899 Other long term (current) drug therapy; Z79.82 Long term (current) use of aspirin; Z95.5 Presence of coronary angioplasty implant and graft
CPT/HCPCS: 36415; 80053; 82947; 85025; 93005; 93010; 99284-25

== ENCOUNTER 2022-09-18 08:21 | Day surgery (SDC) | payer OTHER ==
[~2022-09-18] VITALS: Ht 165.1 cm; Wt 85.0 kg
[~2022-09-18 08:21] MED LIST changes: +ONDA4ODT SL
[2022-09-18 10:28] VITALS: BP 151/62
--- NOTE | 2022-09-18 10:30 | NUR ---
09/18/22 1030 Dayna Godwin IV DC'D CATH INTACT, PRESSURE DRESSING APPLIED, PT TOLERATED WELL
== END 2022-09-18 10:30 | disposition home or self-care (01) ==
LOC: ORSCSDS 08:21
PROVIDERS: Internal Medicine Gastroenterology
PROC: 0DJ08ZZ Inspection of Upper Intestinal Tract, Via Natural or Artificial Opening Endoscopic (ICD-10-PCS; principal; 2022-09-18 09:45)
DX: R11.2 Nausea with vomiting, unspecified (principal); I25.10 Atherosclerotic heart disease of native coronary artery without angina pectoris; E11.9 Type 2 diabetes mellitus without complications; E03.9 Hypothyroidism, unspecified; F41.8 Other specified anxiety disorders; I50.9 Heart failure, unspecified; I25.2 Old myocardial infarction; E78.5 Hyperlipidemia, unspecified; Z79.82 Long term (current) use of aspirin; Z79.899 Other long term (current) drug therapy
CPT/HCPCS: 82947; J2704; J7120

== ENCOUNTER → 2022-10-08 | Outpatient (CLI) | payer OTHER ==
[2022-10-08 16:57] LABS: Source, Urine Clean Catch
[2022-10-08 17:59] LABS: Appearance, Urine Hazy (Clear); Bilirubin, Urine Neg (Neg); Blood, Urine 1+ (Neg); Color, Urine Yellow (P-Yellow); Glucose Qualitative, Urine Neg (Neg); Ketones, Urine Neg (Neg); Leukocyte Esterase, Urine 2+ (Neg); Nitrite, Urine Neg (Neg); Protein, Urine 3+ (Neg); Specific Gravity, Urine 1.015 (1.003-1.022); Urobilinogen, Urine NORM (Normal)
[2022-10-08 18:21] LABS: U Amphetamine Screen Not Detected; U Barbituate Screen Not Detected; U Benzodiazapine Screen Not Detected; U Buprenorphine Screen Not Detected; U Cannabinoids Screen Not Detected; U Cocaine Screen Not Detected; U Methadone Screen Not Detected; U Methamphetamine Screen Not Detected; U Opiates Screen DETECTED; U Oxycodone Screen Not Detected; U Phencyclidine Screen Not Detected; U Propoxyphene Screen Not Detected
[2022-10-08 18:23] LABS: Squamous Epithelial Cells Few /hpf (Few); Transitional Epithelial Cells Rare /hpf (0-Rare)
[2022-10-08 18:24] LABS: Bacteria Many /hpf; Red Blood Cells, Urine 0-2 /hpf (0-2); White Blood Cells, Urine TNTC /hpf (0-5)
[2022-10-08 18:30] LABS: Yeast/Fungi Urine Many /hpf
== END | disposition home or self-care (01) ==
LOC: LAB 13:26 → LAB SHORT 13:26
PROVIDERS: Internal Medicine Hematology & Oncology
DX: R30.0 Dysuria (principal); Z79.899 Other long term (current) drug therapy
CPT/HCPCS: 81001; 87077; 87086; 87106; 87186

== ENCOUNTER → 2022-11-05 | Outpatient (CLI) | payer OTHER ==
[2022-11-05 21:29] LABS: Albumin, Blood 2.9 g/dL (3.4-5.0); Bilirubin, Total 0.3 mg/dL (0.1-1.0); Bun/Creatinine Ratio 23.4 (12.0-20.0); Calcium, Blood 9.2 mg/dL (8.5-10.1); Creatinine, Blood 1.88 mg/dL (0.40-1.00); Percent Saturation 29.8 % (15.0-50.0); Phosphorus, Blood 4.2 mg/dL (2.5-4.9); Potassium, Blood 5.4 mmol/L (3.5-5.5); Total Protein, Blood 5.9 g/dL (6.4-8.2)
[2022-11-09 00:08] LABS: HEMOGLOBIN A1C 9.8 % (4.8-5.6)
== END | disposition home or self-care (01) ==
LOC: LAB 18:31 → LAB SHORT 18:31
PROVIDERS: Internal Medicine Hematology & Oncology
DX: E11.8 Type 2 diabetes mellitus with unspecified complications (principal); R53.83 Other fatigue
CPT/HCPCS: 80053; 82728; 83036; 83540; 83550; 84100

== ENCOUNTER → 2022-11-05 | Outpatient (CLI) | payer OTHER ==
[2022-11-05 19:35] LABS: U Amphetamine Screen Not Detected; U Barbituate Screen Not Detected; U Benzodiazapine Screen Not Detected; U Buprenorphine Screen Not Detected; U Cannabinoids Screen Not Detected; U Cocaine Screen Not Detected; U Methadone Screen Not Detected; U Methamphetamine Screen Not Detected; U Opiates Screen DETECTED; U Oxycodone Screen Not Detected; U Phencyclidine Screen Not Detected; U Propoxyphene Screen Not Detected
[2022-11-11 09:13] LABS: 6-ACETYLMORPHINE Not Detected (.)
== END ==
LOC: LAB 17:04 → LAB SHORT 17:04
PROVIDERS: Internal Medicine Hematology & Oncology
DX: Z51.81 Encounter for therapeutic drug level monitoring (principal); Z79.899 Other long term (current) drug therapy
CPT/HCPCS: G0480

== ENCOUNTER → 2022-11-25 | Outpatient (CLI) | payer OTHER | END | disposition home or self-care (01) | LOC: LAB 14:43 → LAB SHORT 14:43 → PLD 14:43 | DX: D48.5 Neoplasm of uncertain behavior of skin (principal) | CPT/HCPCS: 88305 ==

== ENCOUNTER 2022-12-08 08:14 | Day surgery (SDC) | payer OTHER ==
--- NOTE | 2022-12-08 08:42 | NUR ---
12/08/22 0842 Kaylan Posadas MA CHARTING UNDER MY CREDENTIALS DUE TO NOT HAVING HER OWN LOGIN IN [employer] YET.
[2022-12-08 10:54] VITALS: BP 158/99
--- NOTE | 2022-12-08 10:55 | NUR ---
12/08/22 1055 Dayna Godwin PT DC'D CATH INTACT. PT TOLERATED WELL. COBAN AND GAUZE APPLIED
== END 2022-12-08 10:53 | disposition home or self-care (01) ==
LOC: ORSCSDS 08:14
PROVIDERS: Internal Medicine Gastroenterology
PROC: 0DJ08ZZ Inspection of Upper Intestinal Tract, Via Natural or Artificial Opening Endoscopic (ICD-10-PCS; principal; 2022-12-08 09:30)
DX: R11.2 Nausea with vomiting, unspecified (principal); E78.5 Hyperlipidemia, unspecified; I10 Essential (primary) hypertension; K20.90 Esophagitis, unspecified without bleeding
CPT/HCPCS: 82947; J2704; J7120

== ENCOUNTER 2023-01-15 14:04 | Inpatient (IN) | payer OTHER ==
[~2023-01-15] VITALS: Ht 167.6 cm; Wt 85.3 kg
[2023-01-15 14:32] LABS: BASOPHILS ABSOLUTE AUTO 0.16 K/mm3 (0.00-0.23); BASOPHILS PERCENT AUTO 1 % (0-2); EOSINOPHILS ABSOLUTE AUTO 0.47 K/mm3 (0.00-0.68); EOSINOPHILS PERCENT AUTO 3 % (0-6); Hematocrit 45.5 % (33.0-51.0); Hemoglobin 15.2 g/dL (11.5-16.0); IMMATURE GRAN ABSOLUTE AUTO 0.06 K/mm3 (0.00-0.10); IMMATURE GRAN PERCENT AUTO 0 % (0-1); LYMPHOCYTES ABSOLUTE AUTO 3.91 K/mm3 (0.84-5.20); LYMPHOCYTES PERCENT AUTO 26 % (21-46); MONOCYTES ABSOLUTE AUTO 1.18 K/mm3 (0.16-1.47); MONOCYTES PERCENT AUTO 8 % (4-13); Mean Corpuscular HGB 29.9 pg (26.0-34.0); Mean Corpuscular HGB Conc 33.4 g/dL (31.5-36.5); Mean Corpuscular Volume 89 fL (80-100); Mean Platelet Volume 10.4 fL (9.1-12.4); NEUTROPHILS ABSOLUTE AUTO 9.51 K/mm3 (1.96-9.15); NEUTROPHILS PERCENT AUTO 62 % (41-73); Platelet Count 556 K/mm3 (150-400); RDW Coefficient Variation 14.6 % (11.7-14.2); RDW Standard Deviation 48.2 fL (35.1-46.3); Red Blood Cell Count 5.09 M/mm3 (3.80-5.20); White Blood Cell Count 15.29 K/mm3 (4.00-11.30)
[2023-01-15 14:52] LABS: Albumin, Blood 2.8 g/dL (3.4-5.0); Albumin/Globulin Ratio 0.6 (0.8-1.8); Bilirubin, Total 0.8 mg/dL (0.1-1.0); Bun/Creatinine Ratio 17.9 (12.0-20.0); Calcium, Blood 9.3 mg/dL (8.5-10.1); Creatinine, Blood 1.06 mg/dL (0.40-1.00); Globulin, Blood 4.9 g/dL (2.2-4.0); Potassium, Blood 4.9 mmol/L (3.5-5.5); Total Protein, Blood 7.7 g/dL (6.4-8.2)
[2023-01-15 16:29] LABS: Source, Urine Straight Cath
[2023-01-15 16:35] LABS: Appearance, Urine Cloudy (Clear); Bilirubin, Urine Neg (Neg); Blood, Urine 3+ (Neg); Glucose Qualitative, Urine 1+ (Neg); Ketones, Urine 1+ (Neg); Leukocyte Esterase, Urine 3+ (Neg); Nitrite, Urine Neg (Neg); Protein, Urine 4+ (Neg); Specific Gravity, Urine 1.015 (1.003-1.022); Urobilinogen, Urine NORM (Normal)
[2023-01-15 16:48] LABS: Color, Urine Pale Yellow (P-Yellow)
[2023-01-15 16:55] LABS: Amorphous Light (0-Heavy); Bacteria Mod /hpf; Squamous Epithelial Cells Few /hpf (Few)
[2023-01-15 18:57] LABS: SARS-Cov-2 (COVID-19) PCR, MMC NEGATIVE (NEGATIVE)
[2023-01-15 20:48] LABS: U Amphetamine Screen Not Detected; U Barbituate Screen Not Detected; U Benzodiazapine Screen Not Detected; U Buprenorphine Screen Not Detected; U Cannabinoids Screen Not Detected; U Cocaine Screen Not Detected; U Methadone Screen Not Detected; U Methamphetamine Screen Not Detected; U Opiates Screen DETECTED; U Oxycodone Screen Not Detected; U Phencyclidine Screen Not Detected; U Propoxyphene Screen Not Detected
[2023-01-15 21:50] VITALS: BP 152/37
[2023-01-16] VITALS (7 sets, daily range): BP systolic 115–168; BP diastolic 49–113
[2023-01-16 03:25] LABS: BASOPHILS ABSOLUTE AUTO 0.11 K/mm3 (0.00-0.23); BASOPHILS PERCENT AUTO 1 % (0-2); EOSINOPHILS PERCENT AUTO 0 % (0-6); Hematocrit 50.6 % (33.0-51.0); Hemoglobin 16.7 g/dL (11.5-16.0); IMMATURE GRAN PERCENT AUTO 1 % (0-1); LYMPHOCYTES ABSOLUTE AUTO 1.82 K/mm3 (0.84-5.20); LYMPHOCYTES PERCENT AUTO 10 % (21-46); MONOCYTES ABSOLUTE AUTO 0.42 K/mm3 (0.16-1.47); MONOCYTES PERCENT AUTO 2 % (4-13); Mean Corpuscular HGB 29.5 pg (26.0-34.0); Mean Corpuscular Volume 89 fL (80-100); Mean Platelet Volume 9.9 fL (9.1-12.4); NEUTROPHILS ABSOLUTE AUTO 15.53 K/mm3 (1.96-9.15); NEUTROPHILS PERCENT AUTO 86 % (41-73); Platelet Count 532 K/mm3 (150-400); RDW Standard Deviation 49.1 fL (35.1-46.3); Red Blood Cell Count 5.66 M/mm3 (3.80-5.20); White Blood Cell Count 17.98 K/mm3 (4.00-11.30)
[2023-01-16 03:45] LABS: Albumin, Blood 2.2 g/dL (3.4-5.0); Albumin/Globulin Ratio 0.5 (0.8-1.8); Bilirubin, Total 0.4 mg/dL (0.1-1.0); Bun/Creatinine Ratio 18.3 (12.0-20.0); Calcium, Blood 8.5 mg/dL (8.5-10.1); Creatinine, Blood 1.26 mg/dL (0.40-1.00); Globulin, Blood 4.5 g/dL (2.2-4.0); Total Protein, Blood 6.7 g/dL (6.4-8.2)
--- NOTE | 2023-01-16 06:38 | NUR ---
SHIFT SUMMARY PATIENT ARRIVE TO PCU 02 VIA STRETCHER. SLIDE TRANSFER COMPLETED, HOWEVER PATIENT WAS ABLE TO TRANSFER TO THE BEDSIDE COMMODE WITH STAND BY ASSIST. PATIENT IS ALERT AND ORIENTED X4. MEDICATED PER EMAR FOR NAUSEA, ABDOMEN TENDER TO TOUCH BUT SOFT UPON PALPATION. PATIENT ON ROOM AIR. BLOOD PRESSURE ELEVATED AND HAD A RUN OF V TACH ON TELE. WILL CONTINUE TO MONITOR. CALL LIGHT WITHIN REACH.
--- NOTE | 2023-01-16 15:51 | NUR ---
TRANSFER: PT TRANSFERRED TO [place] [id number] VIA WHEELCHAIR. ALL BELONINGS WITH PT. REPORT CALLED TO REAL Kerr RN
--- NOTE | 2023-01-16 16:26 | NUR ---
NOTE: PATIENT ARRIVES TO ROOM VIA WHEELCHAIR AT AROUND 1556 FROM PCU ROOM 2. ASSUMED CARE OF PATIENT. PATIENT IS A&OX4. DNR c PURPLE BRACELET TO L WRIST. CALM, PLEASANT AND COOPERATIVE c CARE. ORIENT TO ROOM AND CALL LIGHT. NO TELE. DENIES CP/PRESSURE, SOB, N/V, DIZZINESS AND GENERALIZED PAIN. RA c SPO2 OF 94%. LUNGS CLEAR T/O TO AUSCULTATION. AMBULATES c SBA. NOTED BRUISING SCATTERED T/O. PIV TO LAC SALINE LOCKED. VITAL SIGNS REVIEWED. 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 CALL LIGHT IN REACH.
--- NOTE | 2023-01-16 16:49 | NUR ---
NOTE: PATIENT BS TAKEN AT AROUND 1630 APPEARS ON GLUCOMETER OF 380. CALLED DR. CHAVEZ TO REPORT THIS ISSUE. RECEIVED ORDER FROM DR. CHAVEZ TO CHANGED COVERAGE TO HIGH SLIDING SCALE.
[2023-01-17 05:40] VITALS: BP 163/77
[2023-01-17] MEDS ORDERED: MORP15ER PO (11:44)
[2023-01-17] MEDS ORDERED: AMOCLA500 PO (11:45)
[2023-01-17] MEDS ORDERED: VISBIOME 112.51 EACH PO (11:45)
[2023-01-17] MEDS ORDERED: FLUC150A PO (11:46)
[2023-01-17] MEDS ORDERED: METO5A PO (11:47)
--- NOTE | 2023-01-17 11:48 | NUR ---
AT BEDSIDE, DRESSED PATIENT, WAITING FOR DISCHARGE INSTRUCTIONS
== END 2023-01-17 12:23 | disposition home or self-care (01) | DRG 871 ==
LOC: ER 14:04 → PCU 20:35 → MEDS 01-16 15:53
PROVIDERS: Nurse Practitioner Acute Care; Student in an Organized Health Care Education/Training Program; ADMIT Internal Medicine
DX: A41.9 Sepsis, unspecified organism (principal); I21.A1 Myocardial infarction type 2; N39.0 Urinary tract infection, site not specified; I50.32 Chronic diastolic (congestive) heart failure; I13.0 Hypertensive heart and chronic kidney disease with heart failure and stage 1 through stage 4 chronic kidney disease, or unspecified chronic kidney disease; E87.20 Acidosis, unspecified; R65.20 Severe sepsis without septic shock; E10.51 Type 1 diabetes mellitus with diabetic peripheral angiopathy without gangrene; E10.22 Type 1 diabetes mellitus with diabetic chronic kidney disease; J45.909 Unspecified asthma, uncomplicated; E78.5 Hyperlipidemia, unspecified; Z66 Do not resuscitate; E66.01 Morbid (severe) obesity due to excess calories; G89.4 Chronic pain syndrome; I25.10 Atherosclerotic heart disease of native coronary artery without angina pectoris; E03.9 Hypothyroidism, unspecified; K82.8 Other specified diseases of gallbladder; N18.30 Chronic kidney disease, stage 3 unspecified; F32.A Depression, unspecified; F41.9 Anxiety disorder, unspecified; M54.9 Dorsalgia, unspecified; I16.0 Hypertensive urgency; Z98.890 Other specified postprocedural states; Z90.710 Acquired absence of both cervix and uterus; Z95.5 Presence of coronary angioplasty implant and graft; Z90.49 Acquired absence of other specified parts of digestive tract; Z87.891 Personal history of nicotine dependence; Z88.5 Allergy status to narcotic agent; Z88.8 Allergy status to other drugs, medicaments and biological substances; Z87.19 Personal history of other diseases of the digestive system; Z90.81 Acquired absence of spleen; Z79.01 Long term (current) use of anticoagulants; Z79.4 Long term (current) use of insulin; Z79.890 Hormone replacement therapy; Z79.82 Long term (current) use of aspirin; Z79.899 Other long term (current) drug therapy; Z68.30 Body mass index [BMI] 30.0-30.9, adult
CPT/HCPCS: 36415; 51701; 71045; 74177; 80053; 81001; 82947; 83605; 83690; 83880; 84484; 85025; 87040; 87086; 93005; 93010; 94760; 96365-59; 96375-59; 99285-25; A9270; J0360; J0696; J1170; J1650; J1815; J2405; J2765; J3010; J3370; J7030; Q9967; U0002

== ENCOUNTER → 2023-04-20 | Outpatient (CLI) | payer OTHER ==
[~2023-04-20] MED LIST changes: +AMOCLA500 PO; +FLUC150A PO; +METO5A PO
[2023-04-21 17:50] LABS: U Amphetamine Screen Not Detected; U Barbituate Screen Not Detected; U Benzodiazapine Screen Not Detected; U Buprenorphine Screen Not Detected; U Cannabinoids Screen Not Detected; U Cocaine Screen Not Detected; U Methadone Screen Not Detected; U Methamphetamine Screen Not Detected; U Opiates Screen DETECTED; U Oxycodone Screen Not Detected; U Phencyclidine Screen Not Detected
== END ==
LOC: LAB 17:06 → LAB SHORT 17:06
PROVIDERS: Internal Medicine Hematology & Oncology
DX: E11.8 Type 2 diabetes mellitus with unspecified complications (principal); Z79.899 Other long term (current) drug therapy
CPT/HCPCS: 87086

== ENCOUNTER 2023-05-01 21:14 | Inpatient (IN) | payer OTHER ==
[~2023-05-01] VITALS: Ht 165.1 cm; Wt 101.0 kg
[~2023-05-01 21:14] MED LIST changes: +GABA600 PO; +THERA-D2000 UNIT PO; -VITAMIN D5000 UNIT PO
[2023-05-01 21:58] LABS: BASOPHILS ABSOLUTE AUTO 0.16 K/mm3 (0.00-0.23); BASOPHILS PERCENT AUTO 1 % (0-2); EOSINOPHILS ABSOLUTE AUTO 0.21 K/mm3 (0.00-0.68); EOSINOPHILS PERCENT AUTO 2 % (0-6); Hematocrit 47.6 % (33.0-51.0); Hemoglobin 15.5 g/dL (11.5-16.0); IMMATURE GRAN ABSOLUTE AUTO 0.05 K/mm3 (0.00-0.10); IMMATURE GRAN PERCENT AUTO 0 % (0-1); LYMPHOCYTES ABSOLUTE AUTO 2.77 K/mm3 (0.84-5.20); LYMPHOCYTES PERCENT AUTO 23 % (21-46); MONOCYTES ABSOLUTE AUTO 1.23 K/mm3 (0.16-1.47); MONOCYTES PERCENT AUTO 10 % (4-13); Mean Corpuscular HGB 28.1 pg (26.0-34.0); Mean Corpuscular HGB Conc 32.6 g/dL (31.5-36.5); Mean Corpuscular Volume 86 fL (80-100); Mean Platelet Volume 9.6 fL (9.1-12.4); NEUTROPHILS ABSOLUTE AUTO 7.67 K/mm3 (1.96-9.15); NEUTROPHILS PERCENT AUTO 64 % (41-73); NRBC ABSOLUTE 0.17 K/mm3 (0.00-0.02); NRBC Auto 1.4 /100 WBC (0.0-0.2); Platelet Count 519 K/mm3 (150-400); RDW Coefficient Variation 15.6 % (11.7-14.2); RDW Standard Deviation 48.5 fL (35.1-46.3); Red Blood Cell Count 5.51 M/mm3 (3.80-5.20); White Blood Cell Count 12.09 K/mm3 (4.00-11.30)
[2023-05-01 22:17] LABS: Albumin, Blood 2.7 g/dL (3.4-5.0); Albumin/Globulin Ratio 0.6 (0.8-1.8); Bilirubin, Total 0.6 mg/dL (0.1-1.0); Bun/Creatinine Ratio 28.1 (12.0-20.0); Calcium, Blood 9.1 mg/dL (8.5-10.1); Creatinine, Blood 2.67 mg/dL (0.40-1.00); Globulin, Blood 4.8 g/dL (2.2-4.0); Potassium, Blood 4.4 mmol/L (3.5-5.5); Total Protein, Blood 7.5 g/dL (6.4-8.2)
[2023-05-01 22:42] LABS: Magnesium, Blood 2.1 mg/dL (1.6-2.4)
[2023-05-01 23:08] LABS: Thyroid Stimulating Hormone 5.12 uIU/mL (0.360-4.800)
[2023-05-01 23:30] LABS: Bilirubin, Urine Neg (Neg); Blood, Urine 2+ (Neg); Glucose Qualitative, Urine 2+ (Neg); Ketones, Urine 1+ (Neg); Leukocyte Esterase, Urine 2+ (Neg); Nitrite, Urine Neg (Neg); Protein, Urine 4+ (Neg); Source, Urine Clean Catch; Specific Gravity, Urine 1.015 (1.003-1.022); Urobilinogen, Urine NORM (Normal)
[2023-05-01 23:54] LABS: Appearance, Urine Hazy (Clear); Color, Urine Yellow (P-Yellow)
[2023-05-01 23:55] LABS: Free Thyroxine 1.07 ng/dL (0.70-1.60); Triiodothyronine, Free 1.26 pg/mL (2.18-3.98)
[2023-05-01 23:55] LABS: Red Blood Cells, Urine 0-2 /hpf (0-2); White Blood Cells, Urine TNTC /hpf (0-5)
[2023-05-01 23:56] LABS: Bacteria Few /hpf; Squamous Epithelial Cells Not Seen /hpf (Few); Yeast/Fungi Urine Many /hpf
[2023-05-02] VITALS (27 sets, daily range): BP systolic 136–201; BP diastolic 78–172
[2023-05-02 00:07] LABS: Influenza A, PCR NEGATIVE (NEGATIVE); Influenza B, PCR NEGATIVE (NEGATIVE); Resp Syncytial Virus, PCR NEGATIVE (NEGATIVE); SARS-Cov-2 (COVID-19) PCR, MMC NEGATIVE (NEGATIVE)
--- NOTE | 2023-05-02 03:31 | NUR ---
ARRIVAL PT NEW ADMIT FROM ER. ARRIVED W C/O DIFFUSE BODY PAIN. HTN AND TACHYCARDIA NOTED, AFIB 112, MEDICATED PER EMAR. HOSPITALIST AWARE, NO CARDIZEM DRIP AT THIS TIME. PT UNABLE TO PARTICIPATE IN ADMIT D/T GROGGINESS AND LETHARGY. ABLE TO ANSWER ORIENTATION QUESTIONS APPROPRIATELY AT THIS TIME, CAN MOVE ALL LIMBS. PUREWICK PLACED, IV FLUIDS INFUSING.NAUSEA NOTED, PT CONTINUOUSLY DRY HEAVING. MEDICATED PER EMAR.
[2023-05-02 04:50] LABS: BASOPHILS ABSOLUTE AUTO 0.16 K/mm3 (0.00-0.23); BASOPHILS PERCENT AUTO 1 % (0-2); EOSINOPHILS ABSOLUTE AUTO 0.03 K/mm3 (0.00-0.68); EOSINOPHILS PERCENT AUTO 0 % (0-6); Hematocrit 43.2 % (33.0-51.0); Hemoglobin 14.3 g/dL (11.5-16.0); IMMATURE GRAN ABSOLUTE AUTO 0.12 K/mm3 (0.00-0.10); IMMATURE GRAN PERCENT AUTO 1 % (0-1); LYMPHOCYTES ABSOLUTE AUTO 2.81 K/mm3 (0.84-5.20); LYMPHOCYTES PERCENT AUTO 18 % (21-46); MONOCYTES ABSOLUTE AUTO 1.22 K/mm3 (0.16-1.47); MONOCYTES PERCENT AUTO 8 % (4-13); Mean Corpuscular HGB 28.4 pg (26.0-34.0); Mean Corpuscular HGB Conc 33.1 g/dL (31.5-36.5); Mean Corpuscular Volume 86 fL (80-100); Mean Platelet Volume 9.9 fL (9.1-12.4); NEUTROPHILS ABSOLUTE AUTO 11.36 K/mm3 (1.96-9.15); NEUTROPHILS PERCENT AUTO 72 % (41-73); NRBC Auto 1.3 /100 WBC (0.0-0.2); Platelet Count 527 K/mm3 (150-400); RDW Coefficient Variation 15.7 % (11.7-14.2); RDW Standard Deviation 47.8 fL (35.1-46.3); Red Blood Cell Count 5.04 M/mm3 (3.80-5.20)
--- NOTE | 2023-05-02 05:04 | NUR ---
SHIFT SUMMARY VSS, HTN NOTED. HOSPITALIST AWARE, SUSPECTS THIS IS RELATED TO PTS NAUSEA AND PAIN. MEDICATED PER EMAR X2 W/PRN'S. PT DENIES ANY CP, PRESSURE, OR DIZZINESS. TELE READS AFIB 130'S. SINCE ARRIVING PT HAS BEEN EXTREMELY NAUSEATED, MEDICATED PER EMAR. MINIMAL EMESIS NOTED, BILE GREEN LIKE. NO URINE OUTPUT NOTED YET, PLAN TO BLADDER SCAN. PT'S EMOTIONS REMAIN LABILE. CRYING OUT AND YELLING THAT SHE WANTS TO . PT ENCOURAGED TO UNDERSTAND THAT SHE NEEDS TO GIVE THE MEDICATION TIME TO WORK BEFORE SHE FEELS BETTER. PT HAS REMAINED NPO SINCE ARRIVING. OTHERWISE, NO ACUTE EVENTS NOTED
[2023-05-02 05:10] LABS: Albumin, Blood 2.7 g/dL (3.4-5.0); Albumin/Globulin Ratio 0.6 (0.8-1.8); Bilirubin, Total 0.6 mg/dL (0.1-1.0); Bun/Creatinine Ratio 29.4 (12.0-20.0); Calcium, Blood 8.7 mg/dL (8.5-10.1); Creatinine, Blood 2.38 mg/dL (0.40-1.00); Globulin, Blood 4.5 g/dL (2.2-4.0); Potassium, Blood 4.2 mmol/L (3.5-5.5); Total Protein, Blood 7.2 g/dL (6.4-8.2)
--- NOTE | 2023-05-02 17:47 | NUR ---
ASSUMED CARE OF PT AT 0700 THIS AM. PT IS A&OX4, ABLE TO MAKE NEEDS KNOWN, FLAT AFFECT, REPORTS PAIN AND NAUSEA. HR>150 AND BPs>160/100s. PT MEDICATED WITH PRNs PER MD ORDERS. DR AGUILERA ROUNDED ON PT WITH THIS RN IN ROOM. DISCUSSED CONCERNS W HR/BPs N/V. PT MEDICATED WITH PRN MEDICATIONS PER MD ORDERS. PT REQUIRED STRONG ENCOURAGEMENT TO TAKE HER PO MEDICATIONS, BUT EVENTUALLY TOOK THEM ALL. APROX AN HOUR AFTER PO MEDICATION ADMINISTRATION, PT'S HR/BP HAVE NOT CHANGED. DR AGUILERA WAS NOTIFIED AND A CARDIZEM GTT WAS STARTED BY THIS RN AND TITRATED UP TO 15MG/HR TO ACHIEVE HR REDUCTION. BPs CONTINUED TO BE HIGH HR IMPROVED. PRN HYDRALIZINE GIVEN AND BPs DECREASED TO 130-150/90s. PT APPEARED TO BE RESTING QUIETLY THIS AFTERNOON, EYES CLOSED, RESPIRATIONS EVEN AND UNLABORED, FAMILY AT BEDSIDE. FAMILY UPDATED ON PT'S CONDITION AND ALL QUESTIONS ANSWERED. RENAL US COMPLETED AND TECH REPORTS 423ML OF URINE IN BLADDER AT THAT TIME. PT BLADDER SCANNED APROX 1600 FOR >875ML, STRAIGHT CATH PERFORMED FOR 800MLs OF URINE. THIS IS SECOND STRAIGHT CATH IN 24HRS FOR RETENTION, PT HAS NOT VOIDED ON HER OWN. PO INTAKE VERY MINIMAL. FSBS NOTED TO BE CLIMBING T/O THE DAY, DR AGUILERA NOTIFIED AND SLIDING SCALE INSULIN INCREASED, MAY NEED INCREASED LONG ACTING INSULIN WELL, WILL PASS ON TO NOC SHIFT RN. DR AGUILERA NOTIFIED THIS EVENING FOR IVF CLARIFICATION, NEW ORDERS PLACED AND IMPLEMENTED. PT'S IS AT BEDSIDE AT THIS TIME. SEE DOCUMENTED VS T/O THE DAY. HR AND BP CONTINUES TO BE CONTROLLED AT THIS TIME. PT IS ABLE TO USE CALL LIGHT AND MAKE HER NEEDS KNOWN. SOME MOANING AND DRY HEAVING T/O THE DAY, RESOLVED WITH PRN MEDICATIONS INDICATED. THIS RN WILL CONTINUE TO MONITOR, TREAT AND GIVE REPORT TO NOC SHIFT RN.
--- NOTE | 2023-05-02 23:39 | NUR ---
ASSUMPTION OF CARE AFTER RECEIVING REPORT FROM JAVIER RN, THIS RN ASSUMED CARE AT APPROX 1915. PATIENT LETHARGIC, RESTING WITH EYES CLOSED DURING INITIAL ENCOUNTER. EASILY AROUSABLE TO VERBAL STIMULI. IS ALERT AND ORIENTED X3-4. UNSURE OF DATE/TIME. DOES EXPERIENCE EPISODES OF INCREASED ANXIETY, ABLE TO MANAGE AT THIS TIME WITH THERAPUETIC DISCUSSION. TELEMETRY SHOWING AFIB 80's-110's. CARDIZEM GTT INFUSING AT 10. BP ELEVATED, SBP 150's. MANAGING PER EMAR. DENIES CHEST PAIN OR PRESSURE. IS ON ROOM AIR, SATS >90%. DOES REPORT NAUSEA, NO VOMITING. MANAGED PER EMAR WITH RELIEF. REPORTS 5/10 CHRONIC BACK PAIN, MANAGED PER EMAR AT THIS TIME. PATIENT DID REQUIRE STRAIGHT CATH DURING THE DAY, WILL PERFORM BLADDER SCAN AND MONITOR FOR REPEATED PROCEDURE. CALL LIGHT IN REACH.
[2023-05-03] VITALS (10 sets, daily range): BP systolic 92–141; BP diastolic 52–107
--- NOTE | 2023-05-03 01:15 | NUR ---
UPDATE PATIENT's RATE BEGINNING TO TREND DOWN FROM 90's-110's TO 70's-80's WITH OCCASSIONAL DECREASES TO 60's. CARDIZEM GTT DECREASED FROM 10 TO 5, AND IS NOW ON STAND BY. BP SOFT, SBP 80's-90's. MAP >65. BLADDER SCAN PERFORMED BY GREEN CHAINER KRISSY, >900 NOTED. THIS RN ASKED GREEN CHAINER KRISSY TO PERFORM STRAIGHT CATH PROCEDURE. MD ON UNIT, ARIADNA GARCIA RECEIVED ORDER FOR ESTRADA CATHETER PLACEMENT THIS IS HER THIRD STRAIGHT CATH PROCEDURE THIS ADMISSION.
[2023-05-03 04:22] LABS: Hematocrit 40.5 % (33.0-51.0); Hemoglobin 13.2 g/dL (11.5-16.0); Mean Corpuscular HGB 28.3 pg (26.0-34.0); Mean Corpuscular HGB Conc 32.6 g/dL (31.5-36.5); Mean Corpuscular Volume 87 fL (80-100); Mean Platelet Volume 10.2 fL (9.1-12.4); NRBC ABSOLUTE 0.22 K/mm3 (0.00-0.02); NRBC Auto 1.5 /100 WBC (0.0-0.2); Platelet Count 464 K/mm3 (150-400); RDW Coefficient Variation 15.8 % (11.7-14.2); RDW Standard Deviation 48.7 fL (35.1-46.3); Red Blood Cell Count 4.66 M/mm3 (3.80-5.20); White Blood Cell Count 15.13 K/mm3 (4.00-11.30)
[2023-05-03 04:39] LABS: Albumin, Blood 2.7 g/dL (3.4-5.0); Anion Gap 7 mmol/L (6-16); Blood Urea Nitrogen 70 mg/dL (8-24); Bun/Creatinine Ratio 26.7 (12.0-20.0); CO2, Blood 22 mmol/L (21-32); Calcium, Blood 8.5 mg/dL (8.5-10.1); Chloride, Blood 111 mmol/L (98-108); Creatinine, Blood 2.62 mg/dL (0.40-1.00); Glomerular Filtration Rate 18 (60-); Glucose, Blood 264 mg/dL (70-99); Phosphorus, Blood 4.6 mg/dL (2.5-4.9); Potassium, Blood 4.2 mmol/L (3.5-5.5); Sodium, Blood 140 mmol/L (136-145)
--- NOTE | 2023-05-03 05:28 | NUR ---
SHIFT SUMMARY PATIENT SLEPT THROUGHOUT SHIFT, EASILY AROUSABLE TO VERBAL STIMULI. SEEMS TO BE MORE ALERT, LESS LETHARGIC WHEN COMPARED TO THE BEGINNING OF THE SHIFT. PARTICIPATES MORE IN CONVERSATION. ABLE TO COMMUNICATE NEEDS EFFECTIVELY. TELEMETRY SHOWING AFIB 90's-100's SINCE STOPPING CARDIZEM GTT (SEE PREVIOUS NOTE). BP SOFT AT TIMES, SBP 90's. HAS SINCE INCREASED, SBP 110's-130's. REMAINS ON ROOM AIR, SATS >90%. ESTRADA CATHETER IN PLACE FOR RETENTION (SEE PREVIOUS NOTE), DRAINING YELLOW URINE TO GRAVITY. NO BM THIS SHIFT. ATTENDS IN PLACE. MEDICATED X1 FOR NAUSEA THIS SHIFT, HAS SINCE REPORTED THAT SHE IS NO LONGER EXPERIENCING NAUSEA. PATIENT ABLE TO REPOSITION HERSELF IN BED WITH MINIMAL TO NO ASSIST. CALL LIGHT IN REACH. WILL REPORT TO ONCOMING RN.
--- NOTE | 2023-05-03 08:35 | NUR ---
CARE ASSUMPTION PT A&OX, SITTING UP IN BED, HAS APPETITE FOR BREAKFAST, FIRST TIME IN A WEEK PER PT. SP02>90 %ON RA. TELEMETRY SHOWS AFIB, HR 110'S-120'S. MD AGUILERA IN ROOM TO ASSESS, MD AGUILERA W/ ORDERS TO INCREASE COREG TO HELP CONTROL HR, DILT GTT TURNED OFF DURING NOC SHIFT. SEE EMAR. PT DENIES PAIN, REFUSES SCHEDULED PAIN MEDICATION. ESTRADA CATHETER DRAINING PURULENT YELLOW URINE TO GRAVITY. ABX AND FLUIDS INFUSING PER EMAR. CALL LIGHT IN REACH.
--- NOTE | 2023-05-03 11:55 | NUR ---
UPDATE PT BLOOD SUGAR 368 AT LUNCH TIME CHECK. PT ABLE TO EAT LARGE BREAKFAST. WAS PREVIOUSLY ON LOWER THAN HOME REGEMIN OF LONG ACTING INSULIN D/T NOT EATING. CALL PLACED TO MD AGUILERA. MD AGUILERA WITH ORDERS TO INCREASE LONG ACTING INSULIN TO HOME DOSE. PT STATES SHE TAKES 17 UNITS LONG ACTING AT 10 AM, DAILY. PT REPORTS BURNING "LIKE SAND" ITCHING IN R EYE. NO DISCHARGE NOTED. WARM COMPRESSES APPLIED. PT STATES CURRENTLY ON ABX EYE CREAM FOR PINK EYE. CALL PLACED TO MD AGUILERA. MD AGUILERA W/ ORDERS FOR EYE DROPS, SEE EMAR.
--- NOTE | 2023-05-03 16:59 | NUR ---
SHIFT SUMMARY NO ACUTE CHANGES SINCE CARE ASSUMPTION. PT A&OX4. SP02>90% ON RA. TELEMETRY SHOWS AFIB, HR 80'S-120'S. PT DENIES PAIN. ESTRADA CATHETER DRAINING YELLOW URINE TO GRAVITY. NO BM THIS SHIFT. PT C/O OF ITCHY EYE, EYE DROP APPLIED TO R EYE PER EMAR, PT STATES SOME RELIEF. NO DISCHARGE NOTED. FLUIDS INFUSED PER EMAR. ABX INFUSED PER EMAR. PT REPOSITIONED Q2H. ABLE TO EAT EACH MEAL. IN VISITING THIS AFTERNOON. PT ON PHONE TO FRIENDS MOST OF EVENING. CALL LIGHT IN REACH.
--- NOTE | 2023-05-03 21:54 | NUR ---
ASSUMPTION OF CARE AFTER RECEIVING REPORT FROM ALESIA GARCIA, THIS RN ASSUMED CARE AT APPROX 1915. PATIENT SLEEPING DURING INITIAL ENCOUNTER, EASILY AROUSABLE TO VERBAL STIMULI. IS ALERT AND ORIENTED X3-4. CAN BE FORGETFUL OF DATE/TIME, BUT EASILY AROUSABLE TO VERBAL STIMULI. PATIENT REPORTING FEELING "THE BEST IN A LONG WHILE." PATIENT DECLINING SCHEDULED PO MS CONTIN CHRONIC PAIN IS TOLERABLE AT THIS TIME. TELEMETRY SHOWING AFIB 100's-110's. BP STABLE, SBP 130's. DENIES CHEST PAIN OR PRESSURE. ON ROOM AIR, SATS >90%. DECLINES FEELING SHORT OF BREATH AT REST. ESTRADA CATHETER PATENT, DRAINING YELLOW URINE TO GRAVITY, DUE TO RETENTION. ATTENDS IN PLACE. DRESSING ON L HEEL FOR CHRONIC DIABETIC WOUND CHANGED, MEPIPLEX IN PLACE. NO DRAINAGE NOTED. REPOSITIONED IN BED WITH MODERATE ASSIST. IVF INFUSING PER EMAR. CALL LIGHT IN REACH.
[2023-05-04 03:53] VITALS: BP 139/90
[2023-05-04 04:32] LABS: Hematocrit 39.1 % (33.0-51.0); Mean Corpuscular HGB 28.4 pg (26.0-34.0); Mean Corpuscular HGB Conc 33.2 g/dL (31.5-36.5); Mean Corpuscular Volume 86 fL (80-100); Mean Platelet Volume 10.1 fL (9.1-12.4); NRBC Auto 1.3 /100 WBC (0.0-0.2); Platelet Count 422 K/mm3 (150-400); RDW Standard Deviation 49.2 fL (35.1-46.3); Red Blood Cell Count 4.57 M/mm3 (3.80-5.20)
[2023-05-04 05:00] LABS: Albumin, Blood 2.3 g/dL (3.4-5.0); Anion Gap 9 mmol/L (6-16); Blood Urea Nitrogen 76 mg/dL (8-24); CO2, Blood 20 mmol/L (21-32); Chloride, Blood 104 mmol/L (98-108); Creatinine, Blood 2.81 mg/dL (0.40-1.00); Glomerular Filtration Rate 17 (60-); Glucose, Blood 367 mg/dL (70-99); Magnesium, Blood 1.9 mg/dL (1.6-2.4); Phosphorus, Blood 3.8 mg/dL (2.5-4.9); Potassium, Blood 4.3 mmol/L (3.5-5.5); Sodium, Blood 133 mmol/L (136-145)
--- NOTE | 2023-05-04 05:24 | NUR ---
SHIFT SUMMARY NO ACUTE CHANGES SINCE ASSUMPTION OF CARE. PATIENT SLEPT THROUGHOUT SHIFT, EASILY AROUSABLE TO VERBAL STIMULI. TELEMETRY CURRENTLY SHOWING AFIB 110's. BP STABLE. REMAINS ON ROOM AIR, SATS >90%. REPORTING R EYE IRRITATION THROUGHOUT SHIFT, MANAGING PER EMAR WITH ORDERED EYE DROPS AND WARM WASH CLOTH. ESTRADA CATHETER PATENT, DRAINING LARGE AMOUNTS OF YELLOW URINE TO GRAVITY. NO BM THIS SHIFT. REPOSITIONED IN BED TOLERATED, PATIENT DECLINING AT TIMES. IVF INFUSING PER EMAR. CALL LIGHT IN REACH. WILL REPORT TO ONCOMING RN.
[2023-05-04 07:36] VITALS: BP 151/100
[2023-05-04 11:27] VITALS: BP 144/104
--- NOTE | 2023-05-04 16:58 | NUR ---
SHIFT SUMMARY NO ACUTE CHANGES THIS SHIFT. PT A&OX4. SP02>90% ON RA. TELEMETRY SHOWS AFIB, HR MOSTLY 110'S-120'S. METOPROLOL STARTED PER EMAR, DOSE INCREASE STARTING TONIGHT. PT DENIED PAIN, REFUSED PAIN MEDS. DID C/O OF ITCHING IN EYE, EYE DROP APPLIED THIS EVENING PER EMAR. NS INFUSED PER EMAR. ESTRADA CATHETER DRAINING TO GRAVITY. NO BM THIS SHIFT. PT AMBULATED 1 PERSON ASSIST FROM BED TO RECLINER. ABLE TO SIT IN RECLINER FOR MID AFTERNOON. PYSICAL THERAPY IN ROOM TO EVALUATE, HELPED PT TRANSITION BACK TO BED. MD LEMA IN ROOM THIS AFTERNOON TO ASSESS FOOT. STATES BETADINE AND HEEL PROTECTORS DAILY. FOLLOW UP OUTPT WITH MD LEMA. PT TALKED ON PHONE SEVERAL TIMES DURING DAY TO FRIENDS AND FAMILY. IN ROOM THIS AFTERNOON. PT REPORTED TO MD SUAZO THAT SHE TAKES A MEDICATION AT HOME THAT STOPS HER HEAD FROM GOING "SWOOSH SWOOSH SWOOSH". BROUGHT IN MEDICATION: VENALAFAXINE, 150 MG DAILY. NOTIFIED. CALL LIGHT IN REACH. PT RESTING IN ROOM.
[2023-05-04 17:12] VITALS: BP 138/79
[2023-05-04 19:54] VITALS: BP 129/94
--- NOTE | 2023-05-04 20:58 | NUR ---
ASSUMPTION OF CARE AFTER RECEIVING REPORT FROM ALESIA GARCIA, THIS RN ASSUMED CARE AT APPROX 1915. DURING INITIAL ENCOUNTER, PATIENT ALERT, LYING ON RIGHT SIDE WATCHING TV. IS ALERT AND ORIENTED X4. ABLE TO COMMUNICATE NEEDS EFFECTIVELY. REPORTING 2/10 CHRONIC BACK PAIN TOLERABLE, DECLINED EVENING DOSE OF PO MS CONTIN. TELEMETRY SHOWING AFIB 100's-110's WITH INCREASES TO 120's. INCREASED DOSE OF 100MG METOPROLOL ADMINISTERED PER EMAR. BP STABLE. ON ROOM AIR, SATS >90%. DENIES SHORTNESS OF BREATH AT REST. ESTRADA CATHETER IN PLACE FOR RETENTION MANAGEMENT, DRAINING YELLOW URINE TO GRAVITY. CALL LIGHT IN REACH.
[2023-05-04 22:55] VITALS: BP 138/95
[2023-05-05] VITALS (9 sets, daily range): BP systolic 113–155; BP diastolic 68–108
--- NOTE | 2023-05-05 04:11 | NUR ---
PATIENT's RATE SLOWLY TRENDING UP 110's-120's WITH INCREASES TO 130's-140's WHILE AT REST. BP ELEVATED, 155/108. PATIENT ASYMPTOMATIC, RESTING IN BED WITH EYES CLOSED. NO SIGNS OF DISTRESS NOTED. THIS RN ADMINISTERED IV HYDRALAZINE PER EMAR, BP HAS SINCE DECREASED, SBP 130's. MD JEREZ CONTACTED REGARDING INCREASED RATE AND BLOOD PRESSURE. NO NEW ORDERS RECEIVED. CONTINUE TO MONITOR AND CONTACT IF RATE INCREASES >140 OR PATIENT BECOMES SYMPTOMATIC.
--- NOTE | 2023-05-05 05:26 | NUR ---
SHIFT SUMMARY NO ACUTE CHANGES SINCE PREVIOUS NOTES. PATIENT SLEPT THROUGHOUT SHIFT, EASILY AROUSABLE TO VERBAL STIMULI. TELEMETRY CONTINUING TO SHOW AFIB 110's-120's WITH INCREASES TO 130's-140's WHILE AT REST. BP STABLE SINCE IV HYDRALAZINE ADMINISTRATION, SBP 110's-120's. REMAINS ON ROOM AIR, SATS >90%. ESTRADA CATHETER PATENT, DRAINING YELLOW URINE TO GRAVITY. NO BM THIS SHIFT. PATIENT DECLINING REGULAR REPOSITIONING, REPOSITIONED IN BED ABLE. CALL LIGHT IN REACH. WILL REPORT TO ONCOMING RN.
[2023-05-05 05:29] LABS: Bun/Creatinine Ratio 30.4 (12.0-20.0); Calcium, Blood 8.2 mg/dL (8.5-10.1); Creatinine, Blood 2.76 mg/dL (0.40-1.00)
--- NOTE | 2023-05-05 12:20 | NUR ---
Call to Dr. Calabrese regarding high blood sugar. New order received.
--- NOTE | 2023-05-05 12:49 | NUR ---
Pt worked with OT and ambulated to the bathroom. Passed one very small brown formed stool. STates that she has diarrhea/loose stools more often at home; normally she does not have any constipation. Given prune juice at her request. Now sitting up in chair eating lunch; George is at the bedside.
--- NOTE | 2023-05-05 15:09 | NUR ---
Pt is sitting up in her chair, playing an electronic game. Appears comfortable and calm. Heart rate trending down, now in the 90s from 120s earlier today.
--- NOTE | 2023-05-05 17:44 | NUR ---
SUMMARY The pt was alert, oriented and cooperative and cheerfully conversant today. She worked with OT and ambulated to the bathroom this morning, and for the rest of the day has been up in the recliner chair. Appetite was good today. Blood sugar control was better after increased dosing of insulin, long and short acting. Heart rate in atrial fibrillation throughout the day was better controlled from rate of 125-140 bpm this morning to 90-110s this afternoon with increased dose and change in type of metoprolol, administered this morning. Blood pressure has been stable. Bladder training started this morning, and Gutiérrez catheter was dc'd @ 1630, still waiting for pt to void.
--- NOTE | 2023-05-05 21:31 | NUR ---
ASSUMPTION OF CARE AFTER RECEIVING REPORT FROM CLAY GARCIA, THIS RN ASSUMED CARE AT APPROX [id number]. WITH ASSIST FROM PCT's, PATIENT AMBULATED FROM RECLINER TO CHAIR WITH FWW TO BED. PATIENT REPORTING INCREASED WEAKNESS RELATED TO FATIGUE. IS ALERT AND ORIENTED X4. COOPERATIVE WITH CARE, ABLE TO COMMUNICATE NEEDS EFFECTIVELY. TELEMETRY SHOWING AFIB 90's-100's. BP STABLE. DENIES CHEST PAIN OR PRESSURE. ON ROOM AIR, SATS >90%. DENIES SHORTNESS OF BREATH AT REST. REPORTS 6/10 CHRONIC BACK PAIN, ADMINISTERED SCHEDULED MS CONTIN PER EMAR W/ RELIEF. ESTRADA CATHETER REMOVED PRIOR TO ASSUMPTION OF CARE. PATIENT REPORTS NO NEED TO VOID AT THIS TIME. BLADDER SCAN PERFORMED, 200ML AT THIS TIME. CALL LIGHT IN REACH.
--- NOTE | 2023-05-06 00:04 | NUR ---
BLOOD SUGAR OBTAINED WITH VS, MEASURING 77. PATIENT ALERT, WATCHING TV. PATIENT EATING HALF ROAST BEEF SANDWICH AND DRINKING CRANBERRY JUICE. CALL LIGHT IN REACH.
--- NOTE | 2023-05-06 00:30 | NUR ---
TRANSFER OF CARE NO FURTHER CHANGES SINCE PREVIOUS NOTES. PATIENT CURRENTLY SLEEPING, REMAINS EASILY AROUSABLE TO VERBAL STIMULI. VS REMAIN STABLE. TELEMETRY SHOWING AFIB 90's-100's. BP STABLE. REMAINS ON ROOM AIR, SATS >90%. PATIENT UP TO THE RESTROOM WITH STAND BY ASSIST FWW, VOIDING. PATIENT ABLE TO PERFORM ADL's, SUCH CHANGING PULL UP ATTENDS, ORAL CARE INDEPENDENTLY. DRESSING ON L HEEL WOUND CHANGED, MINIMAL DRAINAGE. CALL LIGHT IN REACH. REPORT GIVEN TO SAUMYA GARCIA TO ASSUME CARE AT 0100.
[2023-05-06 02:51] VITALS: BP 133/88
[2023-05-06 04:49] LABS: Bun/Creatinine Ratio 32.1 (12.0-20.0); Calcium, Blood 8.6 mg/dL (8.5-10.1); Creatinine, Blood 2.74 mg/dL (0.40-1.00); Potassium, Blood 4.6 mmol/L (3.5-5.5)
--- NOTE | 2023-05-06 06:06 | NUR ---
END OF SHIFT SUMMARY SEE PREVIOPUS NOTE. POST ASSUMPTION OF CARE, PT RESTING FOR MAJORITY OF SHIFT. AXO. AMBULATED TO BATHROOM W/O ISSUE. VOIDED. VSS, AFIB CONTROLLED RATE 110'S. AND OTHERWISE PLEASANT AND COOPERATIVE WITH CARE.
[2023-05-06 08:11] VITALS: BP 136/111
--- NOTE | 2023-05-06 10:12 | NUR ---
Nausea and emesis while working with therapy this morning,sitting on side of bed. IV found infiltrated with ns at 50 cc/hour running. dc'd and new iv placed, Zofran given IV per order. Pt ambulatory to the bathroom.
[2023-05-06 10:29] VITALS: BP 126/105
--- NOTE | 2023-05-06 10:29 | NUR ---
Walked back from bathroom, still nauseated and having small amount of emesis, but decreasing in frequency. Reclined in the chair at this time. IV infusing per orders.
--- NOTE | 2023-05-06 11:45 | NUR ---
Call to Dr. Calabrese regarding CBG of 45 at this time. New orders recieved.
--- NOTE | 2023-05-06 11:47 | NUR ---
Pt is sitting up in recliner, wide awake and asymptomatic, drinking milk with miralax at this time. Her has just arrived and is at the bedside.
[2023-05-06 16:39] VITALS: BP 138/106
--- NOTE | 2023-05-06 16:48 | NUR ---
1630 CBG WAS 75. I GAVE THE PT MILK AND CRACKERS PER REQUEST BECAUSE OF HOW FRAGILE HER SUGARS HAVE BEEN. WE WILL RECHECK THEM AFTER DINNER, ABOUT 1800.
[2023-05-06 19:45] VITALS: BP 130/97
[2023-05-07 03:13] VITALS: BP 144/113
--- NOTE | 2023-05-07 04:27 | NUR ---
SHIFT SUMMARY NO ACUTE CHANGES OVERNIGHT. PT LETHARGIC AT BEGINNING OF SHIFT, MORE AWAKE TOWARDS END OF SHIFT. CBG STABLE. VITALS STABLE. AFIB 90-100'S. PT CALLING APPROPRIATELY. AMBULATED WITH 1P SBA WITH FWW. PT MOVING SELF WELL IN BED.LEFT LEG ELEVATED ON PILLOW TO KEEP HEEL OFF BED. NS INFUSING PER EMAR. BED IN LOWEST POSITION AND CALL LIGHT WITHIN REACH. THIS RN WILL REPORT TO ONCOMING DAYSHIFT RN.
[2023-05-07 04:32] LABS: Calcium, Blood 8.6 mg/dL (8.5-10.1); Creatinine, Blood 2.46 mg/dL (0.40-1.00); Potassium, Blood 5.3 mmol/L (3.5-5.5)
[2023-05-07 09:30] VITALS: BP 144/112
[2023-05-07] MEDS ORDERED: METO100ER PO (11:42)
[2023-05-07] MEDS ORDERED: Diflucan100 MG PO (11:42)
[2023-05-07] MEDS ORDERED: NAPPHEOPSO RIGHTEYE (11:43)
[2023-05-07] MEDS ORDERED: MIRALAX17 GM PO (11:44)
[2023-05-07] MEDS ORDERED: VENL75ER PO (11:45)
== END 2023-05-07 14:00 | disposition home health service (06) | DRG 854 ==
LOC: ER 21:14 → PCU 21:15 → ER 21:15 → PCU 05-02 02:15
PROVIDERS: Emergency Medicine; Internal Medicine; Student in an Organized Health Care Education/Training Program; ADMIT Internal Medicine
PROC: 3E03329 Introduction of Other Anti-infective into Peripheral Vein, Percutaneous Approach (ICD-10-PCS; principal; 2023-05-01)
PROC: 0JBR0ZZ Excision of Left Foot Subcutaneous Tissue and Fascia, Open Approach (ICD-10-PCS; 2023-05-04)
DX: B37.7 Candidal sepsis (principal); I50.32 Chronic diastolic (congestive) heart failure; N17.9 Acute kidney failure, unspecified; N18.4 Chronic kidney disease, stage 4 (severe); B37.49 Other urogenital candidiasis; I48.91 Unspecified atrial fibrillation; I25.10 Atherosclerotic heart disease of native coronary artery without angina pectoris; G89.29 Other chronic pain; M54.9 Dorsalgia, unspecified; E10.51 Type 1 diabetes mellitus with diabetic peripheral angiopathy without gangrene; E10.22 Type 1 diabetes mellitus with diabetic chronic kidney disease; I11.0 Hypertensive heart disease with heart failure; E10.649 Type 1 diabetes mellitus with hypoglycemia without coma; E10.40 Type 1 diabetes mellitus with diabetic neuropathy, unspecified; E10.65 Type 1 diabetes mellitus with hyperglycemia; E88.09 Other disorders of plasma-protein metabolism, not elsewhere classified; L89.620 Pressure ulcer of left heel, unstageable; J45.909 Unspecified asthma, uncomplicated; E78.5 Hyperlipidemia, unspecified; Z79.02 Long term (current) use of antithrombotics/antiplatelets; Z79.82 Long term (current) use of aspirin; Z79.4 Long term (current) use of insulin; Z91.81 History of falling; Z88.8 Allergy status to other drugs, medicaments and biological substances; Z11.52 Encounter for screening for COVID-19; Z79.891 Long term (current) use of opiate analgesic; Z79.2 Long term (current) use of antibiotics; Z95.5 Presence of coronary angioplasty implant and graft; Z95.828 Presence of other vascular implants and grafts
CPT/HCPCS: 0241U; 36415; 71045; 73650; 76770; 80048; 80053; 80069; 81001; 82947; 83605; 83735; 83880; 84439; 84443; 84481; 85025; 85027; 87040; 87086; 93005; 93010; 96365; 96366; 96367; 96375; 97110; 97116; 97162; 97165; 97530; 97535; 99285-25; A9270; C9113; J0360; J0692; J0696; J0780; J1644; J1815; J2248; J2270; J2405; J2765; J3010; J3370; J7030; J7050; P9047

== ENCOUNTER 2023-05-09 20:47 | Inpatient (IN) | payer OTHER ==
[~2023-05-09] VITALS: Ht 165.1 cm; Wt 100.7 kg
[~2023-05-09 20:47] MED LIST changes: +Diflucan100 MG PO; +METO100ER PO; +NAPPHEOPSO RIGHTEYE; +VENL75ER PO
[2023-05-09 21:52] LABS: Source, Urine Straight Cath
[2023-05-09 21:54] LABS: Bilirubin, Urine Neg (Neg); Blood, Urine Neg (Neg); Glucose Qualitative, Urine 1+ (Neg); Ketones, Urine Neg (Neg); Leukocyte Esterase, Urine 1+ (Neg); Nitrite, Urine Neg (Neg); Protein, Urine 4+ (Neg); Urobilinogen, Urine NORM (Normal)
[2023-05-09 22:00] LABS: White Blood Cell Count 16.92 K/mm3 (4.00-11.30)
[2023-05-09 22:16] LABS: BASOPHILS ABSOLUTE AUTO 0.13 K/mm3 (0.00-0.23); BASOPHILS PERCENT AUTO 1 % (0-2); EOSINOPHILS ABSOLUTE AUTO 0.04 K/mm3 (0.00-0.68); EOSINOPHILS PERCENT AUTO 0 % (0-6); Hematocrit 43.7 % (33.0-51.0); Hemoglobin 14.3 g/dL (11.5-16.0); IMMATURE GRAN ABSOLUTE AUTO 0.17 K/mm3 (0.00-0.10); IMMATURE GRAN PERCENT AUTO 1 % (0-1); LYMPHOCYTES ABSOLUTE AUTO 3.11 K/mm3 (0.84-5.20); LYMPHOCYTES PERCENT AUTO 18 % (21-46); MONOCYTES ABSOLUTE AUTO 2.54 K/mm3 (0.16-1.47); MONOCYTES PERCENT AUTO 15 % (4-13); Mean Corpuscular HGB Conc 32.7 g/dL (31.5-36.5); Mean Corpuscular Volume 86 fL (80-100); NEUTROPHILS ABSOLUTE AUTO 10.93 K/mm3 (1.96-9.15); NEUTROPHILS PERCENT AUTO 65 % (41-73); NRBC ABSOLUTE 1.25 K/mm3 (0.00-0.02); NRBC Auto 7.4 /100 WBC (0.0-0.2); RDW Coefficient Variation 16.4 % (11.7-14.2); RDW Standard Deviation 50.4 fL (35.1-46.3)
[2023-05-09 22:19] LABS: Mean Platelet Volume 10.7 fL (9.1-12.4); Platelet Count 341 K/mm3 (150-400)
[2023-05-09 22:19] LABS: Amorphous Light (0-Heavy); Appearance, Urine Clear (Clear); Bacteria Few /hpf; Color, Urine Yellow (P-Yellow); Red Blood Cells, Urine Not Seen /hpf (0-2); Squamous Epithelial Cells Mod /hpf (Few); Transitional Epithelial Cells Few /hpf (0-Rare)
[2023-05-09 22:20] LABS: Base Excess Venous -11.5 mmol/L; Bicarbonate Venous 16.2 mmol/L (24.0-30.0); pH Blood Venous 7.27 (7.34-7.37)
[2023-05-09 22:21] LABS: Thyroid Stimulating Hormone 6.54 uIU/mL (0.360-4.800)
[2023-05-09 22:23] LABS: U Amphetamine Screen Not Detected; U Barbituate Screen Not Detected; U Benzodiazapine Screen Not Detected; U Buprenorphine Screen Not Detected; U Cannabinoids Screen Not Detected; U Cocaine Screen Not Detected; U Methadone Screen Not Detected; U Methamphetamine Screen Not Detected; U Opiates Screen DETECTED; U Oxycodone Screen Not Detected; U Phencyclidine Screen Not Detected
[2023-05-09 22:39] LABS: Albumin, Blood 2.6 g/dL (3.4-5.0); Albumin/Globulin Ratio 0.7 (0.8-1.8); Bilirubin, Total 1.1 mg/dL (0.1-1.0); Bun/Creatinine Ratio 33.8 (12.0-20.0); Calcium, Blood 8.2 mg/dL (8.5-10.1); Creatinine, Blood 3.31 mg/dL (0.40-1.00); Globulin, Blood 3.8 g/dL (2.2-4.0); Total Protein, Blood 6.4 g/dL (6.4-8.2)
[2023-05-09 23:04] LABS: Influenza A, PCR NEGATIVE (NEGATIVE); Influenza B, PCR NEGATIVE (NEGATIVE); SARS-Cov-2 (COVID-19) PCR, MMC NEGATIVE (NEGATIVE)
[2023-05-09 23:07] LABS: Resp Syncytial Virus, PCR POSITIVE (NEGATIVE)
[2023-05-09 23:22] LABS: Albumin, Blood 2.5 g/dL (3.4-5.0); Albumin/Globulin Ratio 0.7 (0.8-1.8); Bun/Creatinine Ratio 32.8 (12.0-20.0); Calcium, Blood 8.2 mg/dL (8.5-10.1); Creatinine, Blood 3.38 mg/dL (0.40-1.00); Globulin, Blood 3.6 g/dL (2.2-4.0); Total Protein, Blood 6.1 g/dL (6.4-8.2)
[2023-05-10 01:56] LABS: Albumin, Blood 2.1 g/dL (3.4-5.0); Albumin/Globulin Ratio 0.7 (0.8-1.8); Bilirubin, Total 1.1 mg/dL (0.1-1.0); Bun/Creatinine Ratio 34.4 (12.0-20.0); Calcium, Blood 7.7 mg/dL (8.5-10.1); Creatinine, Blood 3.14 mg/dL (0.40-1.00); Globulin, Blood 3.2 g/dL (2.2-4.0); Potassium, Blood 6.2 mmol/L (3.5-5.5); Total Protein, Blood 5.3 g/dL (6.4-8.2)
[2023-05-10 02:15] VITALS: BP 131/90
--- NOTE | 2023-05-10 06:01 | NUR ---
SHIFT SUMMARY: KIMBERLY AROUSES TO VOICE AND IS ABLE TO ANSWER SHORT QUESTIONS. VSS, CONTINUOUS PULSE OXIMETRY IN PLACE, MAINTAINING SATS >90% ORA. PT OCCASIONALLY SPEAKS TO PEOPLE WHO ARE NOT VISIBLE TO STAFF IN THE ROOM. ESTRADA PATENT, DRAINING TO GRAVITY, COLLECTION BAG HANGING ABOVE THE FLOOR. CURRENT NPO ORDER, SWABS PROVIDED. TELE IN PLACE WHICH SHOWS A-FIB. ULCER TO LEFT HEEL PRESENT ON ADMISSION, DRESSING CHANGED, HEELS FLOATED. SHE IS LYING IN BED WITH THE CALL LIGHT IN REACH. REPORT WILL BE GIVEN TO ONCOMING SHIFT.
[2023-05-10 08:11] VITALS: BP 134/99
[2023-05-10 17:11] VITALS: BP 124/70
--- NOTE | 2023-05-10 17:49 | NUR ---
SHIFT SUMMARY PT AOX4 AT THIS TIME, AT THE START OF THE SHIFT SHE WAS SOMNOLENT AND MAKING STATEMENTS THAT WERE NOT APPROPRIATE. PROVIDER NOTIFIED, NARCAN ADMINISTERED PER THE EMAR. THE PT PERKED RIGHT UP, WRITHING IN PAIN. MEDICATED WITH HER AM MEDS PER THE EMAR. AT THE BS TODAY, INSISTING THE STAFF USE HER DEXCOM AND HIS PHONE TO READ THE SUGARS. THIS NURSE EXPLAINED THAT WE MUST USE THE GLUCOMETERS THAT THE HOSPITAL PROVIDED. IT TOOK THIS NURSE AND THE CHARGE NURSE TO EXPLAIN THE REASONING. HE STILL DOES NOT SEEM TO GRASP THE CONCEPT. BUT THIS NURSE WILL KEEP EDUCATING AND REINFORCING. THE PT ALSO SEEMS TO HAVE DIFFICULTY ADHERING TO THE FLUID RESTRICTION. THIS NURSE EDUCATED THE PT ON THE IMPORTANCE OF FOLLOWING THE FR ALONG WITH WHY THIS PLAN IS IN PLACE. THIS NURSE WILL CONTINUE TO REINFORCE AND EDUCATE THE PT. HEEL PROTECTORS APPLIED, BRIEF CHANGED NEEDED. NOTIFIED BY TELE THAT THE PT'S HR IS TRENDING IN THE 120'S, AT TIMES SITTING IN THE 140'S AND HAS HIS THE 150'S. PROVIDER NOTIFIED AND ORDERS PLACED PER THE EMAR. CALL LIGHT WITHIN REACH, BED IN THE LOWEST POSITION. WILL REPORT TO ONCOMING NURSE.
--- NOTE | 2023-05-10 18:28 | NUR ---
NOTE: NOTIFIED BY TEST TUBE MAKER THAT THE PT WAS TRENDING IN THE 120'S-130'S, AT TIMES 140'S 150'S. PROVIDER NOTIFIED, METOPROLOL IV ORDERED PER THE EMAR. 1 DOSE GIVEN AND 15 MINUTES LATER, THIS NURSE CHECKED IN WITH THE TEST TUBE MAKER. THE TEST TUBE MAKER SAID THAT SHE IS NOW TRENDING IN THE 110'S-120'S. THE PARAMETERS FOR THE IV METOPROLOL ARE >130. ASKED TEST TUBE MAKER TO NOTIFY NURSE IF THE PT BEGAN TRENDING IN THE 120'S-130'S AGAIN. WILL PASS THIS INFORMATION ONTO THE NIGHT NURSE.
--- NOTE | 2023-05-10 19:50 | NUR ---
RECEIVED REPORT AND ASSUMED CARE OF PT. PER VEGETABLE LOADER MACHINE OPERATOR, HEART RATE IN ONE-TEENS TO ONE-TWENTIES.
[2023-05-10 21:19] VITALS: BP 136/93
[2023-05-11 04:29] VITALS: BP 161/110
[2023-05-11 04:37] VITALS: BP 148/129
[2023-05-11 05:41] VITALS: BP 136/103
--- NOTE | 2023-05-11 06:14 | NUR ---
SHIFT SUMMARY: MADELINE IS A&0X2-3. BP ELEVATED THIS AM, AVERAGE HR 121 PER DOPE MAINTENANCE WORKER. MEDICATED PER JUL. IV TO RIGHT HAND LEAKING, UNABLE TO START NEW IV, REQUESTED POWERGLIDE PLACEMENT TO GROCERY CARRIER. PT REQUESTING ICE CHIPS AND WATER FREQUENTLY, EDUCATED ON ASPIRATION PRECAUTIONS. CONTINUOUS PULSE OXIMETER AND TELE IN PLACE. PT VOICED INTEREST IN TAPERING DOWN OFF OF THE MS CONTIN. PT STATES THAT WHEN HER PAIN IS UNCONTROLLED SHE FEELS PANICKY BUT DENIES HAVING ANXIETY, STATING THAT SHE DOES NOT FEEL ANXIOUS AT ANY OTHER TIME. ESTRADA PATENT, DRAINING TO GRAVITY, COLLECTION BAG HANGING ABOVE THE FLOOR. MAINTAINING SATS ORA. SHE IS LYING IN BED WITH THE CALL LIGHT IN REACH. WILL GIVE REPORT TO ONCOMING RN.
[2023-05-11 06:23] LABS: BASOPHILS ABSOLUTE AUTO 0.19 K/mm3 (0.00-0.23); BASOPHILS PERCENT AUTO 1 % (0-2); EOSINOPHILS ABSOLUTE AUTO 0.33 K/mm3 (0.00-0.68); EOSINOPHILS PERCENT AUTO 2 % (0-6); Hematocrit 43.3 % (33.0-51.0); Hemoglobin 14.3 g/dL (11.5-16.0); IMMATURE GRAN ABSOLUTE AUTO 0.07 K/mm3 (0.00-0.10); IMMATURE GRAN PERCENT AUTO 1 % (0-1); LYMPHOCYTES ABSOLUTE AUTO 3.37 K/mm3 (0.84-5.20); LYMPHOCYTES PERCENT AUTO 22 % (21-46); MONOCYTES ABSOLUTE AUTO 2.95 K/mm3 (0.16-1.47); MONOCYTES PERCENT AUTO 19 % (4-13); Mean Corpuscular HGB 27.8 pg (26.0-34.0); Mean Corpuscular Volume 84 fL (80-100); NEUTROPHILS ABSOLUTE AUTO 8.34 K/mm3 (1.96-9.15); NEUTROPHILS PERCENT AUTO 55 % (41-73); NRBC ABSOLUTE 2.87 K/mm3 (0.00-0.02); NRBC Auto 18.8 /100 WBC (0.0-0.2); Platelet Count 363 K/mm3 (150-400); RDW Coefficient Variation 16.7 % (11.7-14.2); Red Blood Cell Count 5.14 M/mm3 (3.80-5.20); White Blood Cell Count 15.25 K/mm3 (4.00-11.30)
[2023-05-11 06:39] LABS: Albumin, Blood 2.6 g/dL (3.4-5.0); Albumin/Globulin Ratio 0.6 (0.8-1.8); Bilirubin, Total 0.8 mg/dL (0.1-1.0); Bun/Creatinine Ratio 34.9 (12.0-20.0); Calcium, Blood 8.4 mg/dL (8.5-10.1); Creatinine, Blood 3.04 mg/dL (0.40-1.00); Magnesium, Blood 2.4 mg/dL (1.6-2.4); Phosphorus, Blood 5.1 mg/dL (2.5-4.9); Potassium, Blood 4.8 mmol/L (3.5-5.5); Total Protein, Blood 6.6 g/dL (6.4-8.2)
[2023-05-11 08:06] VITALS: BP 127/106
--- NOTE | 2023-05-11 14:01 | NUR ---
AT BEDSIDE MAKING PT VERY ANXIOUS. UPSET THAT PT BS "TANKED" WHEN CHECKING DEXCOM. PT BS PRIOR TO LUNCH WAS 210. THIS RN GAVE 4U INSULIN BASED OFF OF MEDIUM SLIDING CORRECTION SCALE. DEXCOM READING @1400 SHOWS 60. THIS RN REQUESTED OUTER DIAMETER GRINDER TO TAKE BS VIA OUR GLUCOMETER WITH A RESULT OF 203. PT AND BELIEVE OUR SYSTEM IS WRONG AND WANTS INSULIN TO BE GIVEN POST MEALS INSTEAD OF PRIOR. ATTEMPTED TO EXPLAIN CARB COUNT INSULIN TO PT AND . PT THREW MASK AT THIS RN.
[2023-05-11 16:08] VITALS: BP 154/107
--- NOTE | 2023-05-11 18:36 | NUR ---
SHIFT SUMMARY: PT A&O X3-4. PLEASANT AND COOPERATIVE WITH CARE. NO ACUTE CHANGES WITH PT THIS SHIFT. PT STATES SHE IS FEELING MUCH BETTER TODAY. TELEHEALTH VISIT WITH DR. BERNARDO THIS AM. FLUID RESTRICTION INCREASED TO 1200mL. POWERGLIDE PLACED IN YESSICA FLUSHING AND DRAWING WELL. IV LASIX PROVIDED. 2+ EDEMA IN BILAT LOWER EXTREM. PT CALM UNTIL ARRIVED AND BECAME VERY ANXIOUS. SEE PREVIOUS NOTE. ESTRADA PATENT DRAINING YELLOW URINE TO GRAVITY. CALL LIGHT IN REACH. BED IN LOWEST POSITION. NO NEEDS AT THIS TIME.
[2023-05-11 19:54] VITALS: BP 151/95
[2023-05-12] VITALS (10 sets, daily range): BP systolic 119–154; BP diastolic 80–124
--- NOTE | 2023-05-12 02:22 | NUR ---
SHIFT SUMMARY PT RESTING QUIETLY AWAKE WATCHING TV DURING SHIFT REPORT. PT IS SOMEWHAT ORIENTED WITH OCCASSIONAL SLOW RESPONSES. MEDICATED AT HS PER EMAR FOR C/O BACK PAIN. PT REPORTED INJURY FROM MANY YEARS AGO. MEDS TAKEN WHOLE IN APPLESAUCE W/O DIFFICULTY. PT REPORTED THAT SHE DOES GET UP AT HOME AND AMBULATE HOLDING ONTO DOOR FRAMES AND COUNTER TOPS. PER REPORT, PT DID NOT GET UP HERE TODAY. PT DECLINES TO USE A FWW D/T FEAR OF FALLING. PT WITH MULTIPLE BRUISES TO UPPER BODY AND UPPER EXTREMITIES. ESTRADA TO GRAVITY; PATENT AND DRAINING CL YELLOW. BL FEET WITH HEEL PROTECTORS ON AND ELEVATED WITH PILLOW. PT MEDICATED PER EMAR FOR SUSTAINED HR 130'S-140'S, PER TELE. LAST DOSE OF IV METOPROLOL GIVEN. PER HOME MED LIST, PT TAKING COZAAR 25MG, AND METOPROLOL 100 MG BID, BUT NO REPORT GIVEN WHY HOME MEDS WEREN'T ORDERED. PT RESTING QUIETLY AT THIS TIME. REPOSITIONED OFF BUTTOCKS THRU OUT THE NIGHT. CALL LT IN REACH.
[2023-05-12 04:57] LABS: BASOPHILS ABSOLUTE AUTO 0.16 K/mm3 (0.00-0.23); BASOPHILS PERCENT AUTO 1 % (0-2); EOSINOPHILS ABSOLUTE AUTO 0.53 K/mm3 (0.00-0.68); EOSINOPHILS PERCENT AUTO 4 % (0-6); Hematocrit 42.6 % (33.0-51.0); Hemoglobin 14.3 g/dL (11.5-16.0); IMMATURE GRAN ABSOLUTE AUTO 0.08 K/mm3 (0.00-0.10); IMMATURE GRAN PERCENT AUTO 1 % (0-1); LYMPHOCYTES ABSOLUTE AUTO 3.41 K/mm3 (0.84-5.20); LYMPHOCYTES PERCENT AUTO 26 % (21-46); MONOCYTES ABSOLUTE AUTO 2.76 K/mm3 (0.16-1.47); MONOCYTES PERCENT AUTO 21 % (4-13); Mean Corpuscular HGB Conc 33.6 g/dL (31.5-36.5); Mean Corpuscular Volume 84 fL (80-100); Mean Platelet Volume 10.4 fL (9.1-12.4); NEUTROPHILS ABSOLUTE AUTO 6.41 K/mm3 (1.96-9.15); NEUTROPHILS PERCENT AUTO 48 % (41-73); NRBC ABSOLUTE 3.83 K/mm3 (0.00-0.02); NRBC Auto 28.7 /100 WBC (0.0-0.2); Platelet Count 303 K/mm3 (150-400); RDW Standard Deviation 50.1 fL (35.1-46.3); White Blood Cell Count 13.35 K/mm3 (4.00-11.30)
[2023-05-12 05:23] LABS: Albumin, Blood 2.4 g/dL (3.4-5.0); Albumin/Globulin Ratio 0.7 (0.8-1.8); Bilirubin, Total 0.7 mg/dL (0.1-1.0); Bun/Creatinine Ratio 34.7 (12.0-20.0); Calcium, Blood 8.4 mg/dL (8.5-10.1); Creatinine, Blood 2.85 mg/dL (0.40-1.00); Globulin, Blood 3.6 g/dL (2.2-4.0); Magnesium, Blood 2.1 mg/dL (1.6-2.4); Phosphorus, Blood 4.8 mg/dL (2.5-4.9); Potassium, Blood 4.4 mmol/L (3.5-5.5)
--- NOTE | 2023-05-12 08:03 | NUR ---
RN NOTIFIED OF CBG 43 CL AT 0750. PATIENT IS ALERT AND ORIENTED AT THE TIME. APPLE JUICE, PEANUT BUTTER AND CRACKERS GIVEN PO. WILL RECHECK CMG AT 0830
[2023-05-12] MEDS ORDERED: CEPH500 PO (14:22)
--- NOTE | 2023-05-12 15:44 | NUR ---
PATIENT IS ALERT AND ORIENTED AND COOPERATIVE WITH CARE. SHE STARTED THE SHIFT WITH A CBG OF 43 CL. HER HR IS TACHYCARDIC BUT MORE CONTROLLED THE SHIFT PROGRESSES. SHE HAS BEEN STARTED ON METOPROLOL AND CARDIZEM TODAY. HYDRALAZINE FOR ELEVATED DBP. PATIENT REFUSED TO WORK WITH PT TODAY. SHE HAD FAMILY AT THE BEDSIDE TODAY, WHO WERE CALM AND COOPERATIVE. ORDER FOR ESTRADA HAS BEEN PLACED AND ORDERED BY DR. HANSON. POWERGLIDE DRESSING CHANGED TODAY. PATIENT HAS REFUSED MORPHINE TWICE WHEN OFFERED. SHE ASKED THAT THE ORDER FOR HER MORPHINE BE CHANGED TO ONCE DAILY AND PRN. PATIENT REPORTS NO PAIN (0/10) SO FAR THIS SHIFT. ON TELEMETRY, AFIB. ON RA. VSS. WILL CONTINUE TO MONITOR
--- NOTE | 2023-05-13 01:50 | NUR ---
SHIFT SUMMARY PT AWAKE DURING SHIFT REPORT, RESTING QUIETLY WATCHING TV. JUST LEAVING PRIOR TO SHIFT REPORT. PER REPORT, PT DECLINED TO WORK WITH THERAPY TODAY, AFTER WANTING TO GET OOB TO STAND DURING THE NIGHT. PT ENCOURAGED TO WORK WITH THERAPY WHEN AVAILABLE. HR IMRPOVED TODAY WITH ADDITION OF MEDICATIONS AND HAS CONTINUED TO DECREASE OVERALL THIS SHIFT. LUNGS T/O SLIGHTLY IMPROVED WITH ONLY FINE CRACKLES TO LLL TONIGHT. OCCASSIONAL COARSE NPC NOTED. MEDS TAKEN WHOLE IN APPLESAUCE. TOLERATING NECTAR THICK LIQUIDS VIA SPOON WELL. ESTRADA TO GRAVITY, PATENT. MEDICATED X1 FOR C/O FOOT/NERVE PAIN. RESTING QUIETLY WATCHING TV AT THIS TIME. CALL LT IN REACH.
[2023-05-13 02:33] VITALS: BP 146/105
[2023-05-13 05:01] LABS: BASOPHILS ABSOLUTE AUTO 0.13 K/mm3 (0.00-0.23); BASOPHILS PERCENT AUTO 1 % (0-2); EOSINOPHILS ABSOLUTE AUTO 0.07 K/mm3 (0.00-0.68); EOSINOPHILS PERCENT AUTO 1 % (0-6); Hemoglobin 13.5 g/dL (11.5-16.0); IMMATURE GRAN ABSOLUTE AUTO 0.12 K/mm3 (0.00-0.10); IMMATURE GRAN PERCENT AUTO 1 % (0-1); LYMPHOCYTES ABSOLUTE AUTO 2.59 K/mm3 (0.84-5.20); LYMPHOCYTES PERCENT AUTO 23 % (21-46); MONOCYTES ABSOLUTE AUTO 3.04 K/mm3 (0.16-1.47); MONOCYTES PERCENT AUTO 27 % (4-13); Mean Corpuscular HGB 27.2 pg (26.0-34.0); Mean Corpuscular HGB Conc 32.9 g/dL (31.5-36.5); Mean Corpuscular Volume 83 fL (80-100); Mean Platelet Volume 10.6 fL (9.1-12.4); NEUTROPHILS PERCENT AUTO 48 % (41-73); NRBC ABSOLUTE 5.14 K/mm3 (0.00-0.02); NRBC Auto 45.3 /100 WBC (0.0-0.2); Platelet Count 238 K/mm3 (150-400); RDW Coefficient Variation 16.9 % (11.7-14.2); RDW Standard Deviation 48.7 fL (35.1-46.3); Red Blood Cell Count 4.97 M/mm3 (3.80-5.20); White Blood Cell Count 11.35 K/mm3 (4.00-11.30)
[2023-05-13 05:20] LABS: Albumin, Blood 2.2 g/dL (3.4-5.0); Albumin/Globulin Ratio 0.6 (0.8-1.8); Bilirubin, Total 0.6 mg/dL (0.1-1.0); Bun/Creatinine Ratio 36.3 (12.0-20.0); Creatinine, Blood 2.59 mg/dL (0.40-1.00); Globulin, Blood 3.5 g/dL (2.2-4.0); Phosphorus, Blood 4.3 mg/dL (2.5-4.9); Potassium, Blood 5.5 mmol/L (3.5-5.5); Total Protein, Blood 5.7 g/dL (6.4-8.2)
[2023-05-13 08:05] VITALS: BP 142/94
--- NOTE | 2023-05-13 09:00 | NUR ---
PT PLEASANT COOP A/O X3. DENIES PAIN. H/R REG, NO MURMUR NOTED. TRACE EDEMA BLE. LEGS ON PILLOWS. PER TELE AFIB AT 120. LUNS CLEAR UPPER DIM BASES ON R/A. BT X4 LAST AM 05/11. VOIDS ESTRADA CATH. YELLOW FLUID IN BAG. BED IN LOW POSITION, CALL LITE IN REACH, CALLS APPROP
[2023-05-13 15:37] VITALS: BP 147/111
--- NOTE | 2023-05-13 16:58 | NUR ---
SPOKE TO DR HANSON. OKEYED JUST GIVE 10 U INS FOR CBG COVERAGE. WILL REVIEW TRENDS TOMORROW.
--- NOTE | 2023-05-13 18:39 | NUR ---
PT PLEASANT TODAY. FRIEND IN AND ASKED IF OKAY TO BRING IN OUTSIDE FOOD. STATES PT NOTHAPPY WITH DIET. EXPLAINED NECTAR THICK LIQUID, MINCED MOIST FOOD. SUCH, PT NOT SAFE FOR OUTSIDE FOOD. FRIEND STATES UNDERSTANDING. WAS IN TODAY AND LOTIONED HER FEET. PT WORKED WITH PT. CBG DID GO OVER [address] AND SHE TO REVIEW AND MAKE ORDERS TOMORROW APPROP. NO OTHER CONCERNS NOTED TODAY. BED IN LOW POSITION, CALL LITE IN REACH. CALLS APPROP
[2023-05-13 19:46] VITALS: BP 150/103
[2023-05-14 03:03] VITALS: BP 149/112
--- NOTE | 2023-05-14 03:03 | NUR ---
PT A&OX3 ON DROPLET PRECAUTIONS HERE WITH CKD FLUID OVERLOAD, PT HAS ESTRADA IN PLACE FOR RETENTION, LUNGS ARE DIMINSHED T/O WITH CRACKLES WHEEZING ON EXERTION, PT USES BSC WITH 1-2 P ASSIST TRANSFER GAIT BELT AN FWW. PT ON TELE AFIB 120S, AND CONTINOUS POX AT BEDSIDE 96%R/A, PT IS ON FLUID RESTRICTION 1200 DAILY AND IS AWARE OF LIMITATIONS, SWALLOW PRECAUTIONS WITH THICKEN LIQUIDS PT PREFERES LEMON WITH SPLENDA ADDED TAKES PILL ONE AT TIME WITH APPLESAUCE, BOWEL SOUNDS ARE HYPOACTIVE IN ALL QUADS, PT HAS EDEMA TO EXTREMITIES WITH +2 TO BLE FEET ARE ELEVATED WITH HEEL PROTECTORS, PT WEARS ATTENDS AND SHIFT POSTION INDEPENDENTLY, CALL VALDOVINOS WITHIN REACH BEDLOWERED, WILL CONTINUE TO MONITOR.
[2023-05-14 05:38] LABS: Magnesium, Blood 1.4 mg/dL (1.6-2.4)
[2023-05-14 05:39] LABS: Albumin, Blood 1.5 g/dL (3.4-5.0); Blood Urea Nitrogen 73 mg/dL (8-24); Bun/Creatinine Ratio 42.2 (12.0-20.0); CO2, Blood 18 mmol/L (21-32); Creatinine, Blood 1.73 mg/dL (0.40-1.00); Glomerular Filtration Rate 30 (60-); Glucose, Blood 155 mg/dL (70-99); Phosphorus, Blood 3.3 mg/dL (2.5-4.9); Potassium, Blood 5.6 mmol/L (3.5-5.5); Sodium, Blood 140 mmol/L (136-145)
[2023-05-14 05:41] LABS: Anion Gap 7 mmol/L (6-16); Chloride, Blood 115 mmol/L (98-108)
[2023-05-14 05:42] LABS: Calcium, Blood 5.6 mg/dL (8.5-10.1)
[2023-05-14 06:06] LABS: Hematocrit 42.2 % (33.0-51.0); Hemoglobin 14.2 g/dL (11.5-16.0)
[2023-05-14 07:32] VITALS: BP 148/89
--- NOTE | 2023-05-14 09:39 | NUR ---
CALLED DR BERNARDO, VERIFIED HE WANTS BOTH IV AND PO LASIX AND BICARB AT SAME TIME.
[2023-05-14 11:50] VITALS: BP 153/114
[2023-05-14 13:58] LABS: Magnesium, Blood 2.2 mg/dL (1.6-2.4)
[2023-05-14 14:02] LABS: Calcium, Blood 8.7 mg/dL (8.5-10.1)
[2023-05-14 16:31] VITALS: BP 150/100
--- NOTE | 2023-05-14 18:14 | NUR ---
PT PLEASANT TODAY. NO C/O PAIN. IN TO VISIT. SHE CONTINUES TO BE A/O X3 AND PLEASANT. LUNGS CLEAR, DIM BASES. PER TELE CONTINUES TO BE AT AFIB 120-140 AT TIMES. CALCIUM IMPROVED. IV LASIX AT 80 MG AND PO [address] BERNARDO GIVEN. BP HELD WELL. EDEMA CONTINUES . NO OTHER CHANGES NOTED. BED IN LOW POSITION, CALL LITE IN REACH, CALLS APPROP
[2023-05-14 19:25] VITALS: BP 150/101
[2023-05-14 19:26] VITALS: BP 150/101
--- NOTE | 2023-05-15 03:25 | NUR ---
INSPECTION CLERK SUMMARY BP REMAINS ELEVATED (150/101), SIMILAR TO PREVIOUS BP THROUGH THE DAY. EASILY AGITATED. DIFFICULT TO REDIRECT TO COMPLY WITH MEDICAL REGIMINE. SEEMS TO CALL SISTERS IF SHE DOESNT AGREE WITH FLUID RESTRICTIONS, ETC. (1200 CC LIMIT/24HR) MED TELE - AFIB 110. ESTRADA DRAINING ELIANA YELLOW. ENCOURAGED TO KEEP HOB ELEVATED WHEN EATING/DRINKING FOR ASPIRATION PRECAUTIONS, NOTED PT VOMITED X 1. NECTAR THICK LIQUIDS MAINTAINED. DROPLET ISOLATION PRECAUTIONS MAINTAINED. CALL LIGHT IN REACH. RAILS UP X 2 FOR SAFETY. WILL CONTINUE TO MONITOR
[2023-05-15 04:09] VITALS: BP 133/108
[2023-05-15 05:42] VITALS: BP 162/111
[2023-05-15 06:22] LABS: BASOPHILS ABSOLUTE AUTO 0.12 K/mm3 (0.00-0.23); BASOPHILS PERCENT AUTO 1 % (0-2); EOSINOPHILS ABSOLUTE AUTO 0.03 K/mm3 (0.00-0.68); EOSINOPHILS PERCENT AUTO 0 % (0-6); Hematocrit 41.7 % (33.0-51.0); Hemoglobin 14.1 g/dL (11.5-16.0); IMMATURE GRAN PERCENT AUTO 1 % (0-1); LYMPHOCYTES ABSOLUTE AUTO 2.72 K/mm3 (0.84-5.20); LYMPHOCYTES PERCENT AUTO 19 % (21-46); MONOCYTES ABSOLUTE AUTO 2.84 K/mm3 (0.16-1.47); MONOCYTES PERCENT AUTO 20 % (4-13); Mean Corpuscular HGB 27.5 pg (26.0-34.0); Mean Corpuscular HGB Conc 33.8 g/dL (31.5-36.5); Mean Corpuscular Volume 81 fL (80-100); Mean Platelet Volume 11.2 fL (9.1-12.4); NEUTROPHILS ABSOLUTE AUTO 8.39 K/mm3 (1.96-9.15); NEUTROPHILS PERCENT AUTO 59 % (41-73); NRBC ABSOLUTE 8.78 K/mm3 (0.00-0.02); NRBC Auto 61.8 /100 WBC (0.0-0.2); Platelet Count 215 K/mm3 (150-400); RDW Coefficient Variation 17.2 % (11.7-14.2); RDW Standard Deviation 47.9 fL (35.1-46.3); Red Blood Cell Count 5.12 M/mm3 (3.80-5.20)
[2023-05-15 07:13] LABS: Albumin, Blood 2.3 g/dL (3.4-5.0); Albumin/Globulin Ratio 0.6 (0.8-1.8); Bilirubin, Total 0.8 mg/dL (0.1-1.0); Bun/Creatinine Ratio 37.1 (12.0-20.0); Calcium, Blood 8.2 mg/dL (8.5-10.1); Creatinine, Blood 2.51 mg/dL (0.40-1.00); Globulin, Blood 3.8 g/dL (2.2-4.0); Phosphorus, Blood 4.4 mg/dL (2.5-4.9); Potassium, Blood 4.5 mmol/L (3.5-5.5); Total Protein, Blood 6.1 g/dL (6.4-8.2)
[2023-05-15 07:43] VITALS: BP 137/89
[2023-05-15 15:41] VITALS: BP 149/98
--- NOTE | 2023-05-15 19:31 | NUR ---
SHIFT SUMMARY; PATIENT UP MANY TIMES TO BEDSIDE COMMODE DURING DAY WITH MINIMAL RESULTS FOR B/M SHE WAS PROVIDED WITH SENNAKOT AND STOOL SOFTENER. SHE REMAINS ON A FLUID RESTRICTION BUT IS NOW ON THIN LIQUIDS NO STRAW. HER VITAL SIGNS ARE STABLE THROUGHOUT THE DAY. HER BREATHING IS EVEN AND UNLABORED. SPOUSE COMES TO VISIT X 2 TODAY. PER SPOUSE HE DOES NOT WANT TO TAKE HER HOME IF SHE IS DISCHARGED IN THE NEXT FEW DAYS HE FEELS SHE IS TOO WEAK. THIS RN WILL PASS ON TO MD ABOUT PATIENT WORKING WITH PT/OT??
[2023-05-15 19:51] VITALS: BP 132/106
--- NOTE | 2023-05-16 03:59 | NUR ---
SHIFT SUMMARY PT ADMIT WITH TOXIC METABOLIC ENCEPHELOPATHY. CURRENTLY UNDER DROPLET ISO FOR RSV. PATIENT NEEDS MOTIVATION IN ASSISTING WITH HER CARE, BUT IS WILLING WHEN ASKED. GAVE TYLENOL 650MG X1 FOR PAIN AT 0041. ANKLES EDEMATOUS WITH SIGNIFICANT PITTING IN BLE. WORSE ON LEFT. INFORMED PT SHE WILL NEED TO KEEP FEET ELEVATED TO ENCOURAGE FLUID SHIFT. REPOSITIONED IN BED AND ELEVATED FOOT OF BED. PT HAS REQUESTED TO NOT BE GIVEN MORPHINE, SHE "JUST GOT OFF THE MORPHINE" AND DOESN'T "WANT TO GET STARTED BACK UP ON IT." PT HAS BEEN COOPERATIVE AND RECEPTIVE OF HER CARE.
[2023-05-16 04:21] VITALS: BP 151/108
[2023-05-16 04:50] LABS: Hematocrit 41.8 % (33.0-51.0); Hemoglobin 14.2 g/dL (11.5-16.0); Mean Corpuscular HGB 27.1 pg (26.0-34.0); Mean Corpuscular Volume 80 fL (80-100); NRBC ABSOLUTE 0.61 K/mm3 (0.00-0.02); NRBC Auto 3.6 /100 WBC (0.0-0.2); Platelet Count 79 K/mm3 (150-400); RDW Coefficient Variation 17.4 % (11.7-14.2); RDW Standard Deviation 46.5 fL (35.1-46.3); Red Blood Cell Count 5.24 M/mm3 (3.80-5.20); White Blood Cell Count 16.94 K/mm3 (4.00-11.30)
[2023-05-16 05:15] LABS: Albumin, Blood 2.2 g/dL (3.4-5.0); Albumin/Globulin Ratio 0.6 (0.8-1.8); Bilirubin, Direct 0.3 mg/dL (0.0-0.3); Bilirubin, Indirect 0.6 mg/dL (0.1-0.7); Bilirubin, Total 0.9 mg/dL (0.1-1.0); Bun/Creatinine Ratio 37.7 (12.0-20.0); Calcium, Blood 7.9 mg/dL (8.5-10.1); Creatinine, Blood 2.31 mg/dL (0.40-1.00); Globulin, Blood 3.5 g/dL (2.2-4.0); Magnesium, Blood 1.8 mg/dL (1.6-2.4); Phosphorus, Blood 4.1 mg/dL (2.5-4.9); Total Protein, Blood 5.7 g/dL (6.4-8.2)
[2023-05-16 05:36] VITALS: BP 105/65
[2023-05-16 07:44] VITALS: BP 126/86
[2023-05-16 11:15] LABS: BASOPHILS ABSOLUTE MAN 0.16 K/mm3 (0.00-0.23); BASOPHILS PERCENT MAN 1 % (0-2); EOSINOPHILS ABSOLUTE MAN 0.16 K/mm3 (0.00-0.68); EOSINOPHILS PERCENT MAN 1 % (0-6); LYMPHOCYTES ABSOLUTE MAN 3.04 K/mm3 (0.84-5.20); LYMPHOCYTES PERCENT MAN 18 % (21-46); MONOCYTES ABSOLUTE MAN 2.54 K/mm3 (0.16-1.47); MONOCYTES PERCENT MAN 15 % (4-13); NEUTROPHILS ABSOLUTE MAN 11.01 K/mm3 (1.96-9.15); SEG NEUTROPHILS PERCENT MAN 65 % (41-73); TOTAL CELLS COUNTED 100
[2023-05-16 19:31] VITALS: BP 150/96
--- NOTE | 2023-05-16 19:37 | NUR ---
SHIFT SUMMARY; PATIENT WAS LETHARGIC DURING DAY. ASKING TO STAY IN BED MOST OF DAY. SHE DID GO BACK AND FORTH TO COMMODE AND BATHROOM THINKING SHE NEEDED TO HAVE A BM WITHOUT RESULTS. SENNA PROVIDED AGAIN THIS EVENING TO ASSIST IN PATIENT BOWEL CARE.
--- NOTE | 2023-05-16 20:17 | NUR ---
CONSTIPATION RESOLUTION OFFERED PT AN OPTION FOR CONSTIPATION RELIEF OF APPLE JUICE, PRUNE JUICE, AND A BUTTER PATTE. SHE STATED THIS HAS GIVEN HER RELIEF IN THE PAST. PT HAS BEEN CONSTIPATED FOR SEVERAL DAYS. PLAN IS TO FINISH HER DRINK, THEN AMBULATE TO HELP ENCOURAGE A BOWEL MOVEMENT.
[2023-05-17 03:41] VITALS: BP 152/115
--- NOTE | 2023-05-17 04:40 | NUR ---
SHIFT SUMMARY PT AMBULATED IN ROOM THIS SHIFT. SHE WAS ABLE TO GET HERSELF UP TO HER WALKER AND TO THE BATHROOM UNASSISTED. CALLED USING PULL STRING IN BATHROOM FOR ASSISTANCE BACK TO BED. ABLE TO HAVE BM THIS AM AFTER RECEIVING "BROWN COW" DRINK THIS BULL RIDER. FIRST BM WAS PALE IN COLOR AND THERE WAS BRIGHT RED BLEEDING PRESENT. PT STATED SHE HAD TO STRAIN QUITE HARD. SECOND BM WAS LIGHT BROWN IN COLOR AND BOTH WERE SMALL. THIRD BM WAS LARGER AND BROWN IN COLOR. NO BLOOD PRESENT THIS TIME. PT IS CURRENTLY TRYING TO RELAX AND GET SOME SLEEP.
[2023-05-17 05:11] LABS: Hemoglobin 13.6 g/dL (11.5-16.0); Mean Corpuscular Volume 79 fL (80-100); Mean Platelet Volume 12.2 fL (9.1-12.4); NRBC ABSOLUTE 0.44 K/mm3 (0.00-0.02); NRBC Auto 2.4 /100 WBC (0.0-0.2); Platelet Count 184 K/mm3 (150-400); RDW Coefficient Variation 16.5 % (11.7-14.2); RDW Standard Deviation 45.2 fL (35.1-46.3); Red Blood Cell Count 5.04 M/mm3 (3.80-5.20); White Blood Cell Count 18.65 K/mm3 (4.00-11.30)
[2023-05-17 05:56] LABS: Albumin, Blood 2.3 g/dL (3.4-5.0); Anion Gap 10 mmol/L (6-16); Blood Urea Nitrogen 83 mg/dL (8-24); Bun/Creatinine Ratio 36.7 (12.0-20.0); CO2, Blood 30 mmol/L (21-32); Calcium, Blood 8.1 mg/dL (8.5-10.1); Chloride, Blood 95 mmol/L (98-108); Creatinine, Blood 2.26 mg/dL (0.40-1.00); Glomerular Filtration Rate 22 (60-); Glucose, Blood 211 mg/dL (70-99); Magnesium, Blood 1.7 mg/dL (1.6-2.4); Phosphorus, Blood 3.8 mg/dL (2.5-4.9); Sodium, Blood 135 mmol/L (136-145)
[2023-05-17 06:31] LABS: BAND PERCENT MAN 1 % (0-8); BASOPHILS PERCENT MAN 0 % (0-2); EOSINOPHILS PERCENT MAN 0 % (0-6); LYMPHOCYTES ABSOLUTE MAN 3.73 K/mm3 (0.84-5.20); LYMPHOCYTES PERCENT MAN 20 % (21-46); MONOCYTES ABSOLUTE MAN 1.49 K/mm3 (0.16-1.47); MONOCYTES PERCENT MAN 8 % (4-13); NEUTROPHILS ABSOLUTE MAN 13.42 K/mm3 (1.96-9.15); SEG NEUTROPHILS PERCENT MAN 71 % (41-73); TOTAL CELLS COUNTED 100
[2023-05-17 07:37] VITALS: BP 113/88
[2023-05-17 16:17] VITALS: BP 156/95
[2023-05-17 19:21] VITALS: BP 124/103
--- NOTE | 2023-05-17 19:27 | NUR ---
SHIFT SUMMARY; PATIENT HAD EPISODE OF DECREASED LOC. RAPID RESPONSE ACTIVATED THIS AM. EDEL DIFFICULTY ROUSING. HYPERTENSIVE AND TACHYCARDIC. RHYTHM SHOWS AFIB ON MONITOR. PATIENT DID ROUSE AFTER A FEW MOMENTS. APPEARED CONFUSED. MRI HEAD ORDERED. PAITENT FAMILY NOTIFIED. MRI WAS NORMAL. PATIENT HAD ONE MORE EPISODE OF DECREASED CONSCIOUSNESS THIS AFTERNOON. SNORING RESPIRATION. 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
[2023-05-18 04:55] LABS: BASOPHILS ABSOLUTE AUTO 0.06 K/mm3 (0.00-0.23); BASOPHILS PERCENT AUTO 0 % (0-2); EOSINOPHILS ABSOLUTE AUTO 0.23 K/mm3 (0.00-0.68); EOSINOPHILS PERCENT AUTO 1 % (0-6); Hematocrit 40.9 % (33.0-51.0); Hemoglobin 13.8 g/dL (11.5-16.0); IMMATURE GRAN ABSOLUTE AUTO 0.16 K/mm3 (0.00-0.10); IMMATURE GRAN PERCENT AUTO 1 % (0-1); LYMPHOCYTES ABSOLUTE AUTO 1.36 K/mm3 (0.84-5.20); LYMPHOCYTES PERCENT AUTO 7 % (21-46); MONOCYTES ABSOLUTE AUTO 2.17 K/mm3 (0.16-1.47); MONOCYTES PERCENT AUTO 11 % (4-13); Mean Corpuscular HGB 27.2 pg (26.0-34.0); Mean Corpuscular HGB Conc 33.7 g/dL (31.5-36.5); Mean Corpuscular Volume 81 fL (80-100); Mean Platelet Volume 11.6 fL (9.1-12.4); NEUTROPHILS ABSOLUTE AUTO 15.24 K/mm3 (1.96-9.15); NEUTROPHILS PERCENT AUTO 79 % (41-73); NRBC ABSOLUTE 5.79 K/mm3 (0.00-0.02); NRBC Auto 30.1 /100 WBC (0.0-0.2); Platelet Count 163 K/mm3 (150-400); RDW Coefficient Variation 16.7 % (11.7-14.2); RDW Standard Deviation 47.3 fL (35.1-46.3); Red Blood Cell Count 5.08 M/mm3 (3.80-5.20); White Blood Cell Count 19.22 K/mm3 (4.00-11.30)
--- NOTE | 2023-05-18 05:14 | NUR ---
SHIFT SUMMARY PATIENT IS ALERT BUT NOT ORIENTED. PATIENT HAS HAD NO ACUTE EVENTS THIS SHIFT. VITAL SIGNS REVIEWED. PATIENT HAS BEEN TACHY MOST OF SHIFT. PATIENT HAD TROUBLE SLEEPING AND OBTAINED SLEEPING MED WITH MILD EFFECT. PATIENT HAS NOT COMPLAINED OF PAIN, NAUSEA, SOB OR VOMITTING THIS SHIFT. PATIENT HAS BEEN A ONE PERSON ASSIST TO BATHROOM. PATIENT HAS BEEN CONTINENT TO BATHROOM THIS SHIFT AFTER ESTRADA WAS PULLED. BED IN LOCKED AND LOWEST POSITION. CALL LIGHT IN PLACE. WILL MONITOR UNTIL SHIFT CHANGE.
[2023-05-18 05:30] LABS: Magnesium, Blood 1.9 mg/dL (1.6-2.4)
[2023-05-18 05:31] LABS: Albumin, Blood 2.2 g/dL (3.4-5.0); Anion Gap 10 mmol/L (6-16); Blood Urea Nitrogen 75 mg/dL (8-24); Bun/Creatinine Ratio 36.4 (12.0-20.0); CO2, Blood 31 mmol/L (21-32); Calcium, Blood 8.1 mg/dL (8.5-10.1); Chloride, Blood 95 mmol/L (98-108); Creatinine, Blood 2.06 mg/dL (0.40-1.00); Glomerular Filtration Rate 24 (60-); Glucose, Blood 142 mg/dL (70-99); Phosphorus, Blood 3.4 mg/dL (2.5-4.9); Potassium, Blood 3.2 mmol/L (3.5-5.5); Sodium, Blood 136 mmol/L (136-145)
[2023-05-18 06:38] VITALS: BP 155/104
[2023-05-18 07:49] VITALS: BP 160/112
--- NOTE | 2023-05-18 09:00 | NUR ---
Pt sitting up in a chair, spouce in room, Dr. Ross in to see her, a/ox4, cooperative with care, follows commands well, denies pain, lungs are a bit course, dim in bases, resp even and unlabored, no cough noted, on r/a hrirr, tele in place running afib per monitor in the one teens to one twenties, no edema noted, ppp +1, cap refill <3 sec, vs stable, afebrile, iv is power glide to lc site is clear and patent, btx4, abd flat soft nontender, voids without diff, skin c/w/d, maew, stand by assist, kojo, call light in reach.
[2023-05-18 13:43] VITALS: BP 157/86
[2023-05-18 15:17] VITALS: BP 136/83
--- NOTE | 2023-05-18 18:07 | NUR ---
pt has been up to chair all through out the day, spouce has been in to see her, gave her a cardizem push x2, second one was effective, heart rate is down to the 80's to 90's, no further changes this shift, call light in reach.
[2023-05-18 19:51] VITALS: BP 141/103
[2023-05-19 03:49] VITALS: BP 128/76
[2023-05-19 05:50] LABS: BASOPHILS ABSOLUTE AUTO 0.05 K/mm3 (0.00-0.23); BASOPHILS PERCENT AUTO 0 % (0-2); EOSINOPHILS ABSOLUTE AUTO 0.35 K/mm3 (0.00-0.68); EOSINOPHILS PERCENT AUTO 2 % (0-6); Hematocrit 37.3 % (33.0-51.0); Hemoglobin 12.7 g/dL (11.5-16.0); IMMATURE GRAN ABSOLUTE AUTO 0.12 K/mm3 (0.00-0.10); IMMATURE GRAN PERCENT AUTO 1 % (0-1); LYMPHOCYTES ABSOLUTE AUTO 1.69 K/mm3 (0.84-5.20); LYMPHOCYTES PERCENT AUTO 9 % (21-46); MONOCYTES PERCENT AUTO 12 % (4-13); Mean Corpuscular Volume 79 fL (80-100); Mean Platelet Volume 12.5 fL (9.1-12.4); NEUTROPHILS ABSOLUTE AUTO 13.85 K/mm3 (1.96-9.15); NEUTROPHILS PERCENT AUTO 76 % (41-73); NRBC ABSOLUTE 3.52 K/mm3 (0.00-0.02); NRBC Auto 19.4 /100 WBC (0.0-0.2); Platelet Count 184 K/mm3 (150-400); RDW Coefficient Variation 16.6 % (11.7-14.2); RDW Standard Deviation 46.3 fL (35.1-46.3); Red Blood Cell Count 4.71 M/mm3 (3.80-5.20); White Blood Cell Count 18.16 K/mm3 (4.00-11.30)
[2023-05-19 06:14] LABS: Albumin, Blood 2.3 g/dL (3.4-5.0); Anion Gap 8 mmol/L (6-16); Blood Urea Nitrogen 72 mg/dL (8-24); Bun/Creatinine Ratio 37.9 (12.0-20.0); CO2, Blood 32 mmol/L (21-32); Calcium, Blood 8.2 mg/dL (8.5-10.1); Chloride, Blood 93 mmol/L (98-108); Glomerular Filtration Rate 27 (60-); Glucose, Blood 274 mg/dL (70-99); Magnesium, Blood 1.9 mg/dL (1.6-2.4); Potassium, Blood 3.4 mmol/L (3.5-5.5); Sodium, Blood 133 mmol/L (136-145)
--- NOTE | 2023-05-19 06:23 | NUR ---
PATIENT IS ALERT AND ORIENTED, ON ROOM AIR. ON TELE AFIB AT 112. ON DROPLET PRECAUTION DUE TO RSV. WITH BG CHECK ACHS, DUE MEDS GIVEN. WITH POWERGLIDE PATENT AND INTACT. WITH LEG EDEMA NOTED. COMPLAINT OF PAIN, MEDICATED ACCORDINGLY. NEEDS ATTENDED. MOLLYMORED TO GO HOME SO SHE CAN SLEEP PROPERLY. CALL LIGHT WITHIN PATIENT'S REACH. WILL CONTINUE TO MONITOR.
[2023-05-19 07:39] VITALS: BP 153/87
[2023-05-19] MEDS ORDERED: POTCHL20ER PO (11:06)
[2023-05-19] MEDS ORDERED: MELATONIN5 M1 PO (11:06)
[2023-05-19] MEDS ORDERED: XARELTO20 MG PO (11:07)
[2023-05-19] MEDS ORDERED: Acetaminophen650 M1 PO (11:08)
[2023-05-19] MEDS ORDERED: ALBU2.5V5 INH (12:25)
[2023-05-19] MEDS ORDERED: CALCIUM CARBON500 M1 PO (12:26)
[2023-05-19] MEDS ORDERED: CALC.25 PO (12:26)
[2023-05-19] MEDS ORDERED: DOCU100 PO (12:27)
[2023-05-19] MEDS ORDERED: FURO40 PO (12:27)
[2023-05-19] MEDS ORDERED: DILT30 PO (12:27)
[2023-05-19] MEDS ORDERED: SENN187 PO (12:28)
--- NOTE | 2023-05-19 15:30 | NUR ---
SHIFT SUMMARY AND DISCHARGE PATIENT DISCHARGED HOME. PATIENT VERY [place]. PROVIDES CARE BUT HAS HAD MULTIPLE STROKES WITH EXPRESSIVE APHASIA. FRIEND PRESENT FOR DISCHARGE PER PATIENT'S REQUEST. GUSTAVO BARAHONA DC'Mauro PRIOR TO DISCHARGE. DISCHARGE INSTRUCTIONS REVIEWED WITH EVERYONE. DRESSING OVER L HEAL CHANGED. PATIENT STATES THAT SHE INJURED HER L HEAL USING A CALLUS FILE ABOUT A MONTH AGO. PATIENT TO HAVE HOME HEALTH ASSIST AFTER DISCHARGE. PATIENT EAGER TO GO HOME COMPLAINING THAT BED IS UNCOMFORTABLE, SHEETS ARE ROUGH, AND SHE CAN'T REST. PROVIDED EDUCATION RELATED TO THE IMPORTANCE OF A HIGH PROTIEN WELL BALANCED MEAL FOR WOUND HEALING AND STRENGTH. PATIENT HAS POOR APPETITE AT THIS TIME.
== END 2023-05-19 15:02 | disposition home health service (06) | DRG 917 ==
LOC: ER 20:47 → MEDS 20:48 → EDPENDDIS 05-12 14:44 → ENPENDDIS 05-12 14:44 → MEDS 05-19 15:02
PROVIDERS: Emergency Medicine; Hospitalist; Internal Medicine; Internal Medicine Nephrology; ADMIT Internal Medicine
DX: T40.2X1A Poisoning by other opioids, accidental (unintentional), initial encounter (principal); G92.8 Other toxic encephalopathy; I50.33 Acute on chronic diastolic (congestive) heart failure; K85.90 Acute pancreatitis without necrosis or infection, unspecified; N17.9 Acute kidney failure, unspecified; R65.10 Systemic inflammatory response syndrome (SIRS) of non-infectious origin without acute organ dysfunction; N18.4 Chronic kidney disease, stage 4 (severe); R18.8 Other ascites; Z66 Do not resuscitate; I13.0 Hypertensive heart and chronic kidney disease with heart failure and stage 1 through stage 4 chronic kidney disease, or unspecified chronic kidney disease; E87.1 Hypo-osmolality and hyponatremia; E87.20 Acidosis, unspecified; R74.01 Elevation of levels of liver transaminase levels; I48.91 Unspecified atrial fibrillation; E11.22 Type 2 diabetes mellitus with diabetic chronic kidney disease; G89.29 Other chronic pain; E87.5 Hyperkalemia; K80.20 Calculus of gallbladder without cholecystitis without obstruction; R91.1 Solitary pulmonary nodule; I25.10 Atherosclerotic heart disease of native coronary artery without angina pectoris; M54.9 Dorsalgia, unspecified; E78.5 Hyperlipidemia, unspecified; E11.40 Type 2 diabetes mellitus with diabetic neuropathy, unspecified; D63.1 Anemia in chronic kidney disease; E88.09 Other disorders of plasma-protein metabolism, not elsewhere classified; K59.00 Constipation, unspecified; E83.42 Hypomagnesemia; E83.51 Hypocalcemia; E87.6 Hypokalemia; Z88.8 Allergy status to other drugs, medicaments and biological substances; Z79.82 Long term (current) use of aspirin; Z79.02 Long term (current) use of antithrombotics/antiplatelets; Z79.890 Hormone replacement therapy; Z79.4 Long term (current) use of insulin; Z79.891 Long term (current) use of opiate analgesic; Z95.5 Presence of coronary angioplasty implant and graft; Z90.81 Acquired absence of spleen; Z95.828 Presence of other vascular implants and grafts
CPT/HCPCS: 0241U; 36415; 51701; 70450; 70551; 71045; 74176; 80053; 80069; 80162; 81001; 82248; 82306; 82310; 82803; 82947; 83605; 83735; 83970; 84100; 84132; 84443; 84484; 85014; 85018; 85025; 87040; 92526; 92610; 93005; 93010; 93308; 93321; 94640; 94664; 94760; 94762; 96361; 96365; 96367; 96375; 96376; 97110; 97116; 97162; 97165; 97530; 97535; 99285-25; A9270; G0378; J0360; J0612; J0696; J1160; J1644; J1815; J1940; J2310; J2405; J3475; J3480; J7030

== ENCOUNTER 2023-05-25 14:54 | Observation (INO) | payer OTHER ==
[~2023-05-25] VITALS: Ht 165.1 cm; Wt 96.1 kg
[~2023-05-25 14:54] MED LIST changes: +Acetaminophen650 M1 PO; +CALC.25 PO; +CALCIUM CARBON500 M1 PO; +CEPH500 PO; +DILT30 PO; +MELATONIN5 M1 PO; +POTCHL20ER PO; +SENN187 PO; +XARELTO20 MG PO
[2023-05-25 15:31] LABS: BASOPHILS ABSOLUTE AUTO 0.12 K/mm3 (0.00-0.23); BASOPHILS PERCENT AUTO 1 % (0-2); EOSINOPHILS ABSOLUTE AUTO 0.05 K/mm3 (0.00-0.68); EOSINOPHILS PERCENT AUTO 0 % (0-6); Hematocrit 38.5 % (33.0-51.0); Hemoglobin 12.2 g/dL (11.5-16.0); IMMATURE GRAN ABSOLUTE AUTO 0.17 K/mm3 (0.00-0.10); IMMATURE GRAN PERCENT AUTO 1 % (0-1); LYMPHOCYTES ABSOLUTE AUTO 1.74 K/mm3 (0.84-5.20); LYMPHOCYTES PERCENT AUTO 13 % (21-46); MONOCYTES ABSOLUTE AUTO 1.61 K/mm3 (0.16-1.47); MONOCYTES PERCENT AUTO 12 % (4-13); Mean Corpuscular HGB 26.9 pg (26.0-34.0); Mean Corpuscular HGB Conc 31.7 g/dL (31.5-36.5); Mean Corpuscular Volume 85 fL (80-100); Mean Platelet Volume 11.9 fL (9.1-12.4); NEUTROPHILS PERCENT AUTO 72 % (41-73); NRBC ABSOLUTE 0.11 K/mm3 (0.00-0.02); NRBC Auto 0.8 /100 WBC (0.0-0.2); Platelet Count 342 K/mm3 (150-400); RDW Coefficient Variation 19.1 % (11.7-14.2); Red Blood Cell Count 4.54 M/mm3 (3.80-5.20); White Blood Cell Count 12.99 K/mm3 (4.00-11.30)
[2023-05-25 15:50] LABS: Bun/Creatinine Ratio 30.8 (12.0-20.0); Calcium, Blood 8.4 mg/dL (8.5-10.1); Creatinine, Blood 1.59 mg/dL (0.40-1.00); Magnesium, Blood 2.1 mg/dL (1.6-2.4); Potassium, Blood 4.9 mmol/L (3.5-5.5)
[2023-05-25 16:25] LABS: Base Excess Venous 2.9 mmol/L; Bicarbonate Venous 26.7 mmol/L (24.0-30.0); PCO2 Venous 43.2 mmHg (38-42); pH Blood Venous 7.41 (7.34-7.37)
[2023-05-25 17:24] LABS: Influenza A, PCR NEGATIVE (NEGATIVE); Influenza B, PCR NEGATIVE (NEGATIVE); SARS-Cov-2 (COVID-19) PCR, MMC NEGATIVE (NEGATIVE)
[2023-05-25 17:28] LABS: Resp Syncytial Virus, PCR POSITIVE (NEGATIVE)
[2023-05-25 21:00] VITALS: BP 175/101
[2023-05-25 22:22] VITALS: BP 173/101
[2023-05-25 22:29] VITALS: BP 166/110
[2023-05-25 22:45] VITALS: BP 164/95
[2023-05-25 22:54] VITALS: BP 159/106
[2023-05-25 23:00] VITALS: BP 175/84
[2023-05-26] VITALS (7 sets, daily range): BP systolic 110–171; BP diastolic 73–103
--- NOTE | 2023-05-26 02:41 | NUR ---
PT ARRIVED TO UNIT AT APPROXIMATELY 2220. SHE IS ALERT AND ORIENTED X 4, COOPERATIVE WITH CARE AND ABLE TO MAKE NEEDS KNOWN. SHE IS ON RA AND DENIES SOB. HR AFIB 100'S-130'S WHEN SHE FIRST ARRIVED ON UNIT. CARDIZEM DRIP STARTED PER EMAR. PT DENIES CHEST PAIN/PRESSURE/PALPITATIONS/DIZZINESS. PT IS CONTINENT OF BLADDER AND BOWELS. 1 PERSON ASSIST TO BEDSIDE COMMODE PT IS WEAK. PT HAS IMPLANT TO BOTH BREASTS, PT SAID THAT THE IMPLANT ON R BREAST DEFLATED YEARS AGO, BUT THE IMPANT TO LEFT BREAST CAN STILL BE FELT, PT SAID THAT IS NORMAL FOR HER. SCATTERED BRUISING THROUGHOUT SKIN, PT SAID SHE IS UNSURE HOW SHE GOT BRUISE TO LEFT BREAST, SHE SAID THE ONES ON HER STOMACH ARE LIKELY FROM HER GIVING HERSELF INSULIN INJECTIONS. SHE IS UNSURE HOW SHE GOT THE BRUISE TO HER LEFT UNDER ARM. SHE SAID THE SCABS/RASH TO RIGHT CALF HAS BEEN THRERE A COUPLE DAYS AND SHE'S UNSURE OF WHAT HAPPENED. SHE DID SAY SHE SCRATCHES HER SKIN A LOT. WHEN ASKED IF PT FEELS SAFE IN HER HOME, SHE EXPRESSED THAT HER IS MEAN TO HER. SHE SAID THAT HE TALKS DOWN TO HER, CUSSES AT HER, CALLS HER NAMES, AND RECENTLY HE SHOOK HER VERY HARD FOR A MINUTE OR TWO. SHE SAID SHE DOESN'T FEEL SAFE GOING HOME. SHE ALSO SAID THAT HER DAUGHER IS COMING INTO TOWN ON WEDNESDAY AND PLANS TO DISCUSS THE PATIENT'S LIVING SITUATION WITH THE PATIENT AND HER . SHE SAID THAT HER IS SICK HIMSELF, AND IT IS GETTING HARDER FOR HIM TO CARE FOR HIS EVEN WITH HOME HEALTH ON BOARD. BLE ARE RED AND SWOLLEN, PT SAID THAT IS NORMAL FOR HER. SORE TO THE BOTTOM OF PT'S LEFT FOOT. SHE SAID HER IN HOME CARE PROVIDER CHANGED THE BANDAGE ON IT EARLIER TODAY. BANDAGE IS C/D/I. PT GOT A FEW HOURS OF SLEEP AFTER SHE ARRIVED. SHE IS CURRENTLY AWAKE IN BED, DRINKING LOW FAT MILK PER HER REQUEST, AND WATCHING TV. CALL LIGHT IS WITHIN REACH.
[2023-05-26 04:00] LABS: BASOPHILS ABSOLUTE AUTO 0.16 K/mm3 (0.00-0.23); BASOPHILS PERCENT AUTO 1 % (0-2); EOSINOPHILS ABSOLUTE AUTO 0.27 K/mm3 (0.00-0.68); EOSINOPHILS PERCENT AUTO 2 % (0-6); Hematocrit 37.4 % (33.0-51.0); Hemoglobin 11.8 g/dL (11.5-16.0); IMMATURE GRAN ABSOLUTE AUTO 0.07 K/mm3 (0.00-0.10); IMMATURE GRAN PERCENT AUTO 1 % (0-1); LYMPHOCYTES ABSOLUTE AUTO 3.11 K/mm3 (0.84-5.20); LYMPHOCYTES PERCENT AUTO 22 % (21-46); MONOCYTES ABSOLUTE AUTO 2.06 K/mm3 (0.16-1.47); MONOCYTES PERCENT AUTO 15 % (4-13); Mean Corpuscular HGB 27.3 pg (26.0-34.0); Mean Corpuscular HGB Conc 31.6 g/dL (31.5-36.5); Mean Corpuscular Volume 87 fL (80-100); Mean Platelet Volume 11.7 fL (9.1-12.4); NEUTROPHILS ABSOLUTE AUTO 8.38 K/mm3 (1.96-9.15); NEUTROPHILS PERCENT AUTO 60 % (41-73); NRBC ABSOLUTE 0.14 K/mm3 (0.00-0.02); Platelet Count 244 K/mm3 (150-400); RDW Coefficient Variation 19.8 % (11.7-14.2); Red Blood Cell Count 4.32 M/mm3 (3.80-5.20); White Blood Cell Count 14.05 K/mm3 (4.00-11.30)
[2023-05-26 04:25] LABS: Bun/Creatinine Ratio 31.1 (12.0-20.0); Calcium, Blood 8.1 mg/dL (8.5-10.1); Creatinine, Blood 1.48 mg/dL (0.40-1.00); Magnesium, Blood 1.9 mg/dL (1.6-2.4)
--- NOTE | 2023-05-26 05:34 | NUR ---
SHIFT SUMMARY NO ACUTE CHANGES, SEE PREVIOUS NOTES. PICTURES OF BRUISES, RASH/REDNESS OF R CALF, & AND WOUND TO L HEEL IN CHART. INPATIENT WOUND CONSULT PLACED. DRESSINGS TO LEFT HEEL CHANGED, HEEL PROTECTOR PLACED ON R HEEL FOR PROTECTION. CONSULT FOR CARE MANAGEMENT PLACED FOR PT SAYING SHE FEELS UNSAFE AT HOME. PT CONTINUES TO DENY CHEST PAIN/PRESSURE/PALPITATIONS/DIZZINESS. HR AFIB 90'S-110'S, CARDIZEM DRIP PER EMAR. PT CURRENTLY RESTING IN BED AND CALL LIGHT WITHIN REACH.
--- NOTE | 2023-05-26 09:29 | NUR ---
Ambulatory to bathroom with walker, minimal assistance needed. Voided.
--- NOTE | 2023-05-26 09:30 | NUR ---
Heart rate is 70 bpm. Pt took her oral cardizem and Toprol at 0800 this morning. IV Cardizem turned off.
--- NOTE | 2023-05-26 12:41 | NUR ---
Agustín is sitting up in recliner. She appears to be exhausted. She had interrupted and shortened sleep last night due to her being in the ED and finally admitted to the unit over night. Her George was here, interactions appear to be WNL between him and the patient. The pt remains in the recliner after eating lunch. Heart rate has been stable, atrial fibrillation, 70-89 bpm. No supplemental oxygen requirements today. She did have crackles in the bases of her lungs auscultated this morning on the lower back. Appetite has been fair to good. Ambulatory to the bathroom with minimal assistance today.
--- NOTE | 2023-05-26 16:26 | NUR ---
After being in the recliner all day, except for getting up and walking to the bathroom, pt requested back to bed to sleep. Assisted only with bringing her legs all the way up to the bed. Appears to be napping at this time.
--- NOTE | 2023-05-26 21:39 | NUR ---
PT ALERT AND ORIENTED X 4, COOPERATIVE WITH CARE AND ABLE TO MAKE NEEDS KNOWN. PERRLA. NO SUPPLEMENTAL OXYGEN NEEDED, PT MAINTAININ 02 SATURATION ABOVE 92% ON RA, SHE DENIES SOB. HER HR IS AFIB 80'S-90'S, LAST BP OF 147/88, SHE DENIES CHEST PAIN/PRESSURE. AT BEGINNING OF SHIFT PT COMPLAINED OF 5/10 LOWER BACK PAIN, SHE SAID SHE HAS CHRONIC BACK PAIN, PT REPOSITIONED AND MEDICATED PER EMAR. PT HAS BRUISING SCATTERED THROUGHOUT AND ULCER TO LEFT HEEL, PICTURES IN CHART. HEEL PROTECTERS IN PLACE. WOUND MANAGEMENT CONSULT IN PLACE. PT HAD VISITOR AT BEGINNING OF SHIFT. SHE HAS BEEN SLEEPING SINCE VISITOR LEFT, SYMMETRICAL RISE AND FALL OF CHEST, RR 16. CALL LIGHT WITHIN REACH.
[2023-05-27 03:20] VITALS: BP 115/97
[2023-05-27 03:56] LABS: Hematocrit 36.8 % (33.0-51.0); Mean Corpuscular HGB 26.9 pg (26.0-34.0); Mean Corpuscular HGB Conc 32.6 g/dL (31.5-36.5); Mean Corpuscular Volume 83 fL (80-100); Mean Platelet Volume 11.7 fL (9.1-12.4); NRBC ABSOLUTE 0.08 K/mm3 (0.00-0.02); NRBC Auto 0.5 /100 WBC (0.0-0.2); Platelet Count 389 K/mm3 (150-400); RDW Coefficient Variation 18.8 % (11.7-14.2); RDW Standard Deviation 53.6 fL (35.1-46.3); Red Blood Cell Count 4.46 M/mm3 (3.80-5.20); White Blood Cell Count 14.65 K/mm3 (4.00-11.30)
[2023-05-27 04:09] LABS: Anion Gap 8 mmol/L (6-16); Blood Urea Nitrogen 50 mg/dL (8-24); Bun/Creatinine Ratio 28.4 (12.0-20.0); CO2, Blood 27 mmol/L (21-32); Calcium, Blood 8.1 mg/dL (8.5-10.1); Chloride, Blood 100 mmol/L (98-108); Creatinine, Blood 1.76 mg/dL (0.40-1.00); Glomerular Filtration Rate 29 (60-); Glucose, Blood 365 mg/dL (70-99); Magnesium, Blood 1.9 mg/dL (1.6-2.4); Potassium, Blood 5.1 mmol/L (3.5-5.5); Sodium, Blood 135 mmol/L (136-145)
--- NOTE | 2023-05-27 06:33 | NUR ---
SHIFT SUMMARY NO ACUTE CHANGES, SEE PREVIOUS NOTE.
--- NOTE | 2023-05-27 07:39 | NUR ---
Call to Dr. Small regarding CBG of 356 at this time. New order for 10 u Glargine at this time, as well as coverage per medium correction scale as previously ordered.
[2023-05-27 07:47] VITALS: BP 115/53
--- NOTE | 2023-05-27 10:23 | NUR ---
Pt states that she is eager to go home. She says that she feels safe going home. I referred to the conversation which she had with Nisa GARCIA on noc shift about the rough treatment at home, but the pt stated "I think I might have just dreamed that up. I sometimes have hallucinations."
--- NOTE | 2023-05-27 10:32 | NUR ---
android architect here to evaluate and treat the patient.
--- NOTE | 2023-05-27 10:57 | NUR ---
WOUND CARE PT WITH JENNINGS GRADE 2 DM FOOT ULCER TO Sasha TURNER. WOUND CLEANSED WITH NS, MEDIHONEY ALGINATE TO WOUND BED, THEN COVERED WITH BORDERED FOAM AND HEEL PROTECTOR. PT EDUCATED ON RISK OF DM FOOT ULCER AND CARE. PT VERBALIZED UNDERSTANDING. OUTPATIENT WOUND CLINIC REFERRAL PLACED
[2023-05-27 11:37] VITALS: BP 128/110
[2023-05-27] MEDS ORDERED: DILT120 PO (13:27)
[2023-05-27] MEDS ORDERED: XARELTO20 MG PO (13:29)
[2023-05-27] MEDS ORDERED: GABA300 PO (13:29)
--- NOTE | 2023-05-27 14:21 | NUR ---
1400, PT USED CALL LIGHT TO INFORM THIS RN THAT SHE "FEELS JITTERY" AND THAT HER GLUCOSE LEVEL IN THE 400'S. THIS DID A SPOT CHECK TO VERIFY SUGAR LEVEL, BLOOD SUGAR AT 424. PT RECIEVED HUMALOG 20 UNITS AT 1135 FOR A BLOOD SUGAR OF 434. CONTACTED AT 1415 AND UPDATED ON CURRENT SUGAR LEVEL AFTER RECIEVING THE 20 UNITS. ALSO MADE AWARE OF PT 7 BEAT RUN OF VTACH THAT OCCURED AT 1412, PT ASYMPTOMATIC. INSTRUCTED THIS RN TO GIVEN A ONE-TIME DOSE OF HUMALOG 10 UNITS. ORDER PLACED BY THIS RN. WILL UPDATE PRIMARY RN.
--- NOTE | 2023-05-27 15:42 | NUR ---
Discharge instructions were reviewed with both the patient and her . Angie wears a continuous glucose monitor on her left arm, and George her demonstrates proficiency and confidence in monitoring it connected with the jovon on his phone. Angie verbalized that he is diligent about keeping close tabs on her glucose levels and that they are much better controlled at home than here in the hospital. They both verbalized that they were ready to go home, with her discharge instructions and said that they did not have any concerns about discharge today.
== END 2023-05-27 15:00 | disposition home or self-care (01) ==
LOC: ER 14:54 → PCU 14:55
PROVIDERS: Internal Medicine; Nurse Practitioner Acute Care; Student in an Organized Health Care Education/Training Program; ADMIT Internal Medicine
DX: I48.91 Unspecified atrial fibrillation (principal); I13.0 Hypertensive heart and chronic kidney disease with heart failure and stage 1 through stage 4 chronic kidney disease, or unspecified chronic kidney disease; E10.22 Type 1 diabetes mellitus with diabetic chronic kidney disease; N18.4 Chronic kidney disease, stage 4 (severe); I50.23 Acute on chronic systolic (congestive) heart failure; B97.4 Respiratory syncytial virus as the cause of diseases classified elsewhere; E78.5 Hyperlipidemia, unspecified; E03.9 Hypothyroidism, unspecified; I25.10 Atherosclerotic heart disease of native coronary artery without angina pectoris; G89.29 Other chronic pain; F32.A Depression, unspecified; K86.81 Exocrine pancreatic insufficiency; F41.9 Anxiety disorder, unspecified; Z88.8 Allergy status to other drugs, medicaments and biological substances; Z20.822 Contact with and (suspected) exposure to COVID-19
CPT/HCPCS: 0241U; 36415; 71045; 80048; 80069; 82010; 82803; 82947; 83735; 83880; 85025; 85027; 93005; 93010; 94640; 94664; 94760; 94762; 96365; 96366; 96374; 96375; 96376; 99285-25; A9270; G0008; G0378; J1815; J1940; Q2036

== ENCOUNTER 2023-06-02 22:20 | Inpatient (IN) | payer OTHER ==
[~2023-06-02] VITALS: Ht 165.1 cm; Wt 99.4 kg
[~2023-06-02 22:20] MED LIST changes: +DILT120 PO
[2023-06-02 22:46] LABS: BASOPHILS ABSOLUTE AUTO 0.16 K/mm3 (0.00-0.23); BASOPHILS PERCENT AUTO 1 % (0-2); Base Excess Venous -9.3 mmol/L; Bicarbonate Venous 17.6 mmol/L (24.0-30.0); EOSINOPHILS ABSOLUTE AUTO 0.04 K/mm3 (0.00-0.68); EOSINOPHILS PERCENT AUTO 0 % (0-6); Hematocrit 28.7 % (33.0-51.0); Hemoglobin 8.7 g/dL (11.5-16.0); IMMATURE GRAN ABSOLUTE AUTO 0.11 K/mm3 (0.00-0.10); IMMATURE GRAN PERCENT AUTO 1 % (0-1); LYMPHOCYTES ABSOLUTE AUTO 3.51 K/mm3 (0.84-5.20); LYMPHOCYTES PERCENT AUTO 26 % (21-46); MONOCYTES ABSOLUTE AUTO 1.57 K/mm3 (0.16-1.47); MONOCYTES PERCENT AUTO 12 % (4-13); Mean Corpuscular HGB 26.4 pg (26.0-34.0); Mean Corpuscular HGB Conc 30.3 g/dL (31.5-36.5); Mean Corpuscular Volume 87 fL (80-100); Mean Platelet Volume 10.5 fL (9.1-12.4); NEUTROPHILS ABSOLUTE AUTO 8.02 K/mm3 (1.96-9.15); NEUTROPHILS PERCENT AUTO 60 % (41-73); NRBC ABSOLUTE 0.32 K/mm3 (0.00-0.02); NRBC Auto 2.4 /100 WBC (0.0-0.2); PCO2 Venous 32.9 mmHg (38-42); Platelet Count 714 K/mm3 (150-400); RDW Coefficient Variation 18.7 % (11.7-14.2); Red Blood Cell Count 3.29 M/mm3 (3.80-5.20); White Blood Cell Count 13.41 K/mm3 (4.00-11.30); pH Blood Venous 7.32 (7.34-7.37)
[2023-06-02 23:07] LABS: International Normalized Ratio 2.32; Prothrombin Time Results 23.2 Sec (9.7-11.5)
[2023-06-02 23:12] LABS: Influenza A, PCR NEGATIVE (NEGATIVE); Influenza B, PCR NEGATIVE (NEGATIVE); Resp Syncytial Virus, PCR NEGATIVE (NEGATIVE); SARS-Cov-2 (COVID-19) PCR, MMC NEGATIVE (NEGATIVE)
[2023-06-02 23:15] LABS: Thyroid Stimulating Hormone 14.8 uIU/mL (0.360-4.800)
[2023-06-02 23:17] LABS: Albumin, Blood 1.9 g/dL (3.4-5.0); Albumin/Globulin Ratio 0.5 (0.8-1.8); Bilirubin, Total 0.4 mg/dL (0.1-1.0); Bun/Creatinine Ratio 41.5 (12.0-20.0); Calcium, Blood 7.7 mg/dL (8.5-10.1); Creatinine, Blood 1.93 mg/dL (0.40-1.00); Globulin, Blood 3.8 g/dL (2.2-4.0); Phosphorus, Blood 4.7 mg/dL (2.5-4.9); Total Protein, Blood 5.7 g/dL (6.4-8.2)
[2023-06-02] MEDS ORDERED: Cefepime HCl 1,000 MG in NS 50 ML IV ONE (23:20)
[2023-06-02] MEDS ORDERED: FentaNYL Citrate 50 MCG/ML 2 ML Injection IV ONE (23:25)
[2023-06-02] MEDS ORDERED: Vancomycin HCL 1,500 MG in NS 250 ML IV ONE (23:25)
[2023-06-02 23:52] LABS: Source, Urine Clean Catch
[2023-06-02 23:55] LABS: Bilirubin, Urine Neg (Neg); Blood, Urine Neg (Neg); Glucose Qualitative, Urine 2+ (Neg); Ketones, Urine Neg (Neg); Leukocyte Esterase, Urine Neg (Neg); Nitrite, Urine Neg (Neg); Protein, Urine 3+ (Neg); Urobilinogen, Urine NORM (Normal)
[2023-06-03] VITALS (39 sets, daily range): BP systolic 97–151; BP diastolic 49–99
[2023-06-03 00:01] LABS: Appearance, Urine Clear (Clear); Color, Urine Pale Yellow (P-Yellow)
[2023-06-03 00:02] LABS: Amorphous Mod (0-Heavy); Bacteria Few /hpf; Red Blood Cells, Urine Not Seen /hpf (0-2); Squamous Epithelial Cells Mod /hpf (Few); White Blood Cells, Urine Not Seen /hpf (0-5)
[2023-06-03 00:07] LABS: U Amphetamine Screen Not Detected; U Barbituate Screen Not Detected; U Benzodiazapine Screen Not Detected; U Buprenorphine Screen Not Detected; U Cannabinoids Screen Not Detected; U Cocaine Screen Not Detected; U Methadone Screen Not Detected; U Methamphetamine Screen Not Detected; U Opiates Screen Not Detected; U Oxycodone Screen Not Detected; U Phencyclidine Screen Not Detected
[2023-06-03] MEDS ORDERED: NS 1,000 ML IV SCH ×2 (00:25→12:50)
[2023-06-03] MEDS ORDERED: FLU VACC QS2023-24(6MOS UP)/PF 60 MCG/0.5 ML SYRINGE IM ONE (01:10)
[2023-06-03] MEDS ORDERED: Insulin Regular 100 UNIT/ML 10ML Vial IV ONE (01:48)
[2023-06-03] MEDS ORDERED: Sodium Bicarb 8.4% Inj 100 MEQ in Sodium Chloride 0.45% 1,000 ML IV SCH (01:50)
[2023-06-03] MEDS ORDERED: Albumin (Human) 25gm/100ml 100 ML IV ONE (01:55)
--- NOTE | 2023-06-03 02:18 | NUR ---
PT ARRIVED FROM ER VIA STRETCHER. LEVOPHED INFUSING INTO RIGHT FA 20G, ARM IS RED, SWOLLEN AND TENDER W/LEVOPHED INFILTRATED INTO THE AREA. LEVOPHED STOPPED. PT HAS 22 GAUGE IN LEFT THUMB W/VANCOMYCIN THAT IS NOT WORKING. CALLED DR RUFFIN AND NOTIFIED HIM THAT I HAVE NO IV ACCESS AT THIS TIME. DR RUFFIN AT BEDSIDE FOR CVL AND DAUGHTER CONSENTED TO PROCEDURE DUE TO PT AMS AND LETHARGY.
[2023-06-03 02:52] LABS: Bun/Creatinine Ratio 41.7 (12.0-20.0); Calcium, Blood 7.6 mg/dL (8.5-10.1); Creatinine, Blood 1.75 mg/dL (0.40-1.00); Free Thyroxine 1.1 ng/dL (0.70-1.60); Potassium, Blood 5.7 mmol/L (3.5-5.5); Triiodothyronine, Free 1.04 pg/mL (2.18-3.98)
--- NOTE | 2023-06-03 03:05 | NUR ---
DR RUFFIN AND DR GUERRA AT BEDSIDE PLACING CVL
[2023-06-03] MEDS ORDERED: Pantoprazole Sodium 40 MG in NS 50 ML IV SCH (06:00)
[2023-06-03] MEDS ORDERED: Insulin Human Lispro 100 Units/ML 3ML Syringe SC SCH (06:00)
[2023-06-03 07:46] LABS: BASOPHILS ABSOLUTE AUTO 0.13 K/mm3 (0.00-0.23); BASOPHILS PERCENT AUTO 1 % (0-2); EOSINOPHILS ABSOLUTE AUTO 0.01 K/mm3 (0.00-0.68); EOSINOPHILS PERCENT AUTO 0 % (0-6); Hematocrit 24.6 % (33.0-51.0); Hemoglobin 7.6 g/dL (11.5-16.0); IMMATURE GRAN ABSOLUTE AUTO 0.17 K/mm3 (0.00-0.10); IMMATURE GRAN PERCENT AUTO 1 % (0-1); LYMPHOCYTES ABSOLUTE AUTO 3.46 K/mm3 (0.84-5.20); LYMPHOCYTES PERCENT AUTO 23 % (21-46); MONOCYTES ABSOLUTE AUTO 2.04 K/mm3 (0.16-1.47); MONOCYTES PERCENT AUTO 14 % (4-13); Mean Corpuscular HGB 26.5 pg (26.0-34.0); Mean Corpuscular HGB Conc 30.9 g/dL (31.5-36.5); Mean Corpuscular Volume 86 fL (80-100); Mean Platelet Volume 10.4 fL (9.1-12.4); NEUTROPHILS ABSOLUTE AUTO 9.32 K/mm3 (1.96-9.15); NEUTROPHILS PERCENT AUTO 62 % (41-73); NRBC ABSOLUTE 0.42 K/mm3 (0.00-0.02); NRBC Auto 2.8 /100 WBC (0.0-0.2); Platelet Count 631 K/mm3 (150-400); RDW Coefficient Variation 18.6 % (11.7-14.2); RDW Standard Deviation 57.1 fL (35.1-46.3); Red Blood Cell Count 2.87 M/mm3 (3.80-5.20); White Blood Cell Count 15.13 K/mm3 (4.00-11.30)
[2023-06-03] MEDS ORDERED: MetroNIDAZOLE 500MG/NS 100 ml 100 ML IV SCH (08:00)
--- NOTE | 2023-06-03 08:01 | NUR ---
SHIFT SUMMERY PT HAVING MULTIPLE LARGE STOOL W/MELENA. DR GUERRA AND DR CAPELLAN AWARE. STOOL SENT TO LAB FOR ANALYSIS. BICARB AND PROTONIX DRIPS INFUSING. CRITICAL LABS GIVEN TO DR GUERRA AT BEDSIDE. PT IS ON ROOM AIR AT THIS TIME.
[2023-06-03 08:19] LABS: Adenovirus F 40/41 Not Detected (NOT DETECT); Astrovirus Not Detected (NOT DETECT); Campylobacter Sp Not Detected (NOT DETECT); Cryptosporidium Not Detected (NOT DETECT); Cyclospora Cayetanensis Not Detected (NOT DETECT); E. Coli O157 Not Detected (NOT DETECT); Entamoeba Histolytica Not Detected (NOT DETECT); Enteroaggregative E. coli-EAEC Not Detected (NOT DETECT); Enteropathogenic E. coli-EPEC Not Detected (NOT DETECT); Enterotoxigenic E. coli-ETEC Not Detected (NOT DETECT); Giardia Lamblia Not Detected (NOT DETECT); Norovirus GI/GII Not Detected (NOT DETECT); Plesiomonas Shigelloides Not Detected (NOT DETECT); Rotavirus A Not Detected (NOT DETECT); Salmonella Sp Not Detected (NOT DETECT); Sapovirus Not Detected (NOT DETECT); Shiga Toxin-prod E. coli-STEC Not Detected (NOT DETECT); Shigella/Enteroin E. coli-EIEC Not Detected (NOT DETECT); Vibrio Cholerae Not Detected (NOT DETECT); Vibrio Sp Not Detected (NOT DETECT); Yersinia Enterocolitica Not Detected (NOT DETECT)
[2023-06-03 08:35] LABS: Bun/Creatinine Ratio 38.8 (12.0-20.0); Calcium, Blood 7.8 mg/dL (8.5-10.1); Creatinine, Blood 1.96 mg/dL (0.40-1.00); Potassium, Blood 5.3 mmol/L (3.5-5.5)
[2023-06-03] MEDS ORDERED: CefOXitin Sodium 1,000 MG in NS 50 ML IV SCH (09:00)
[2023-06-03] MEDS ORDERED: Cefepime HCl 1,000 MG in NS 50 ML IV SCH (09:00)
[2023-06-03 11:44] LABS: Hematocrit 23.3 % (33.0-51.0); Hemoglobin 7.3 g/dL (11.5-16.0)
[2023-06-03 12:07] LABS: Stool Occult Bld Immuno 1 Positive (NEGATIVE)
[2023-06-03 14:56] LABS: Bun/Creatinine Ratio 40.1 (12.0-20.0); Calcium, Blood 7.7 mg/dL (8.5-10.1); Creatinine, Blood 1.92 mg/dL (0.40-1.00); Potassium, Blood 5.4 mmol/L (3.5-5.5)
[2023-06-03] MEDS ORDERED: Amylase/Lipase/Protease DR Cap 12,000 PO SCH (17:30)
[2023-06-03 18:41] LABS: Hematocrit 23.1 % (33.0-51.0); Hemoglobin 7.1 g/dL (11.5-16.0)
--- NOTE | 2023-06-03 18:44 | NUR ---
SHIFT SUMMARY PATIENT HAD MULTIPLE MAROON/JELLY BM THIS SHIFT THAT SLOWLY TURNED THINNER. MINIMAL URINE OUTPUT. PUREICK IN PLACE. FL TO RT IJ INF NS @ 100M/HR AND PROTONIX @ 10ML/HR. 3LPM VIA NC IN PLACE DUE TO PATIENT DESAT WHEN SLEEPING. HOSPITALIST APPROVED ICE CHIPS TODAY AND PATIENT IS TOLERATING WELL. CONSULTED THIS SHIFT FOR CHOLECYSTITIS BY HOSPITALIST. NO OTHER CHANGES THIS SHIFT.
--- NOTE | 2023-06-03 23:22 | NUR ---
ASSUMED CARE OF PT AT 2300. REPORT RECEIVED. PT PRESENTS IN BED. HAS O2 ON AT 2 LITERS/MIN. DOES HAVE SOME DESATURATIONS TO 85. INCREASED RATE TO 4 L/M WILL TITRATE ABLE. WILL REVIEW CHART AND PLAN OF CARE FOR THIS PT.
[2023-06-04] VITALS (48 sets, daily range): BP systolic 111–167; BP diastolic 56–140
[2023-06-04 00:44] LABS: Hematocrit 23.2 % (33.0-51.0); Hemoglobin 7.3 g/dL (11.5-16.0)
[2023-06-04 04:43] LABS: BASOPHILS ABSOLUTE AUTO 0.18 K/mm3 (0.00-0.23); BASOPHILS PERCENT AUTO 1 % (0-2); EOSINOPHILS ABSOLUTE AUTO 0.17 K/mm3 (0.00-0.68); EOSINOPHILS PERCENT AUTO 1 % (0-6); Hematocrit 22.5 % (33.0-51.0); IMMATURE GRAN ABSOLUTE AUTO 0.09 K/mm3 (0.00-0.10); IMMATURE GRAN PERCENT AUTO 1 % (0-1); LYMPHOCYTES ABSOLUTE AUTO 3.57 K/mm3 (0.84-5.20); LYMPHOCYTES PERCENT AUTO 24 % (21-46); MONOCYTES ABSOLUTE AUTO 1.84 K/mm3 (0.16-1.47); MONOCYTES PERCENT AUTO 12 % (4-13); Mean Corpuscular HGB 26.6 pg (26.0-34.0); Mean Corpuscular HGB Conc 31.1 g/dL (31.5-36.5); Mean Corpuscular Volume 86 fL (80-100); Mean Platelet Volume 10.5 fL (9.1-12.4); NEUTROPHILS ABSOLUTE AUTO 9.36 K/mm3 (1.96-9.15); NEUTROPHILS PERCENT AUTO 62 % (41-73); NRBC ABSOLUTE 0.65 K/mm3 (0.00-0.02); NRBC Auto 4.3 /100 WBC (0.0-0.2); Platelet Count 651 K/mm3 (150-400); RDW Coefficient Variation 18.3 % (11.7-14.2); RDW Standard Deviation 55.2 fL (35.1-46.3); Red Blood Cell Count 2.63 M/mm3 (3.80-5.20); White Blood Cell Count 15.21 K/mm3 (4.00-11.30)
[2023-06-04 04:54] LABS: International Normalized Ratio 1.92; Prothrombin Time Results 19.4 Sec (9.7-11.5)
[2023-06-04 05:55] LABS: Percent Saturation 3.2 % (15.0-50.0)
[2023-06-04 05:56] LABS: Albumin, Blood 1.9 g/dL (3.4-5.0); Albumin/Globulin Ratio 0.7 (0.8-1.8); Bilirubin, Total 0.5 mg/dL (0.1-1.0); Bun/Creatinine Ratio 36.6 (12.0-20.0); Calcium, Blood 7.5 mg/dL (8.5-10.1); Creatinine, Blood 1.86 mg/dL (0.40-1.00); Globulin, Blood 2.9 g/dL (2.2-4.0); Total Protein, Blood 4.8 g/dL (6.4-8.2)
--- NOTE | 2023-06-04 06:01 | NUR ---
PT HAS HAD ONLY 1 SMALL STOOL THAT WAS DARK IN NATURE. NO ADÁN BLOOD. HAS MAINTAINED BLOOD PRESSURES WNL. DAUGHTER HAS ROOMED IN WITH PT. VERY ATTENTIVE TO PT'S NEEDS. PT INCONTINENT TO URINE AND STOOL. AFTER CLEANING PT AND ATTENDS CHANGE. PLACED PUREWICK FOR URINE. EDUCATION DONE FOR PATIENT AND FOR DAUGHTER ON NEED. WILL CONTINUE TO MONITOR PT, AND WILL REPORT OFF TO ONCOMING RN.
--- NOTE | 2023-06-04 07:33 | NUR ---
BEDSIDE REPORT FROM RADHA BORJAS, NEW BAG OF PROTONIX HUNG PER JUL. PT REQUESTING ICE CHIPS. PT DENIES ANY COMPLAINTS OF BELLY PAIN/DISCOMFORT. SHE ASKS FOR SOME CHEERIOS AND SOME HOT TEA. DAUGHTER AT BEDSIDE. EDUCATION REGARDING PT'S NPO STATUS.
--- NOTE | 2023-06-04 07:51 | NUR ---
WITH PT'S LABS RESULTING THEY ARE A DISCUSSION IS HELD WITH PATIENT AND HER DAUGHTER, PT IS JEHOVAH WITNESS. THE DAUGHTER IS PROXY AND PT SAYS THAT IT IS UP TO HER, DAUGHTER STANDS BY DECISION TO ALLOW FOR BLOOD PRODUCTS. ORDERS RECEIVED TO TRANSFUSE 2 UNITS RBC'S FROM .
[2023-06-04] MEDS ORDERED: NS 250 ML IV PRN (07:55)
[2023-06-04] MEDS ORDERED: Cefepime HCl 1,000 MG in NS 50 ML IV SCH (09:00)
--- NOTE | 2023-06-04 09:12 | NUR ---
PT HAS BEEN ABLE TO TAKE IN HOT TEA AND APPLE JUICE, ORDERS RECEIVED FROM DR. AN TO HAVE PT CLEAR LIQUIDS ONLY. TO BE NPO TOMORROW MORNING AT 1000, ONLY ICE CHIPS AND WATER AT 2100. PT INFORMED. SHE EXPRESSED DISAPPOINTMENT BUT WAS ENCOURAGED THAT SHE WOULD RECEIVE TREATMENT SOONER.
--- NOTE | 2023-06-04 10:44 | NUR ---
FIRST UNIT OF BLOOD HAS BEEN STARTED, SHE IS TOLERATING WELL. SHE HAS FALLEN ASLEEP, TRYING TO VISIT WITH HER AND SHE IS DIFFICULT TO AROUSE. WAS ALERT AND COOPERATIVE FOR HER BATH AND HAD BEEN COMMUNICATING WELL ALL MORNING. RELAYED TO .
--- NOTE | 2023-06-04 11:11 | NUR ---
CAME TO SEE PT, ASSESSMENT COMPLETED. DOES NOT FEEL THAT THIS IS A SURGICAL CASE.
[2023-06-04] MEDS ORDERED: Carvedilol12.5 MG PO (12:21)
[2023-06-04] MEDS ORDERED: LOSA50 PO (12:21)
[2023-06-04] MEDS ORDERED: INSULANI SC (12:23)
[2023-06-04] MEDS ORDERED: NOVOLOG FL100 UNIT/3 (12:24)
[2023-06-04] MEDS ORDERED: HYDPAM50 PO (12:26)
[2023-06-04] MEDS ORDERED: Metoprolol Tartrate 1 MG/ML 5 ML VIAL IV STA (14:23)
[2023-06-04] MEDS ORDERED: Melatonin 5 MG Tablet PO PRN (14:35)
[2023-06-04] MEDS ORDERED: HydrOXYzine Pamoate 50 MG Cap PO PRN (14:35)
[2023-06-04] MEDS ORDERED: dilTIAZem HCL 120 MG CAP.CD PO SCH (15:00)
--- NOTE | 2023-06-04 16:05 | NUR ---
SINCE LUNCH TIME PT HAS BEEN MORE DROWSY, DECLINING PT/OT TO WORK WITH HER, SHE IS ONLY ASKING FOR SIPS OF WATER, SHE HAD ONE BM, SMALL BROWNISH MAROON IN COLOR, PT WAS ABLE TO ASSIST WITH TURN AND CHANGING OF ATTENDS. NO FURTHER URINE OUTPUT AT THIS TIME. AT BEDSIDE, PT STATES "I WISH HE WOULD LEAVE". PT QUIETLY ASKED IF SHE WANTS US TO HAVE HIM LEAVE AND SHE DOESN'T RESPOND.
[2023-06-04] MEDS ORDERED: Carvedilol 6.25 MG Tab PO SCH (17:00)
--- NOTE | 2023-06-04 18:04 | NUR ---
KIMBERLY IS AWAKE AND ENGAGING. CAME IN TO SEE HER AROUND 1700, SHE WAS ENGAGING, ANSWERING QUESTIONS FOR HIM, ABLE TO ANSWER SOME WELL. PLAN FOR EGD TOMORROW, IF NOT ABLE TO LOCATE REASON FOR BLEEDING, PLANS TO "CONSIDER" A COLONOSCOPY. SHE HAS ONLY HAD THE ONE BM THIS SHIFT. SMALL TO MEDIUM SIZE BROWNISH MAROON, DID NOT HAVE THE HEAVY GI BLEED ODOR. SHE HAS BEEN TAKING IN HER CLEAR LIQUID DIET FOR DINNER AND HAS DENIED ANY COMPLAINTS OF ABDOMINAL PAIN OR TENDERNESS. HER BLOOD SUGAR IS ELEVATED WITH THE CLEAR LIQUIDS. SHE HASN'T HAD ANY FURTHER URINE OUTPUT. SHE HAS BEEN ABLE TO SWALLOW MEDICATIONS WITHOUT INCIDENCE. SHE WILL TAKE IN TOO MUCH LIQUID AND THEN "SPIT OUT" SEVERAL CC'S INTO THE EMESIS BASIN. SHE DOES THIS ROUTINELY THROUGHOUT THE DAY AFTER TAKING IN HER LIQUIDS OF ANY KIND. DENIES NAUSEA, DENIES WRETCHING OR CRAMPING. ASKED TO HAVE HER SCD'S OFF FOR A LITTLE WHILE. THEY HAVE BEEN OFF FOR A LITTLE OVER AN HOUR. REMAINS AT BEDSIDE AND SHE EXPRESSES SOME ANXIOUS FEELINGS. PT WILL BE WATER AND ICE CHIPS ONLY AT 2100 AND NPO AT 1000 TOMORROW FOR PROCEDURE.
--- NOTE | 2023-06-04 20:00 | NUR ---
ASSUMED CARE OF PT AT 1900. REPORT RECEIVED AT BEDSIDE. PT PRESENTS IN BED. ALERT AND ORIETED. PLEASANT AND COOPERATIVE WITH CARE AND ASSESSMENT. DENIES COMPLAINTS OF PAIN OR NAUSEA AT THIS TIME. PT'S AT BEDSIDE. BOTH PATIENT AND ASK QUESTIONS CONCERNING PT'S STATUS. PROCEDURES, AND MEDICATIONS. ANSWERED THOSE FOR THEM. NO FURTHER QUESTIONS. WILL REVIEW CHART AND PLAN OF CARE FOR THIS PT.
[2023-06-04] MEDS ORDERED: Gabapentin 300 MG Cap PO SCH (21:00)
[2023-06-04] MEDS ORDERED: CloNIDine 0.1 MG Tab PO SCH (21:00)
[2023-06-04] MEDS ORDERED: Lactobacil 2-S.Thermo-Bifido 1 1 Cap PO SCH (21:00)
[2023-06-04] MEDS ORDERED: Pravastatin Sodium 20 MG Tab PO SCH (21:00)
[2023-06-05] VITALS (48 sets, daily range): BP systolic 77–121; BP diastolic 42–85
[2023-06-05 04:36] LABS: Hematocrit 26.6 % (33.0-51.0); Hemoglobin 8.5 g/dL (11.5-16.0); Mean Corpuscular HGB 27.2 pg (26.0-34.0); Mean Corpuscular Volume 85 fL (80-100); Mean Platelet Volume 10.2 fL (9.1-12.4); NRBC ABSOLUTE 0.96 K/mm3 (0.00-0.02); NRBC Auto 7.8 /100 WBC (0.0-0.2); Platelet Count 560 K/mm3 (150-400); RDW Coefficient Variation 17.5 % (11.7-14.2); RDW Standard Deviation 53.3 fL (35.1-46.3); Red Blood Cell Count 3.13 M/mm3 (3.80-5.20); White Blood Cell Count 12.38 K/mm3 (4.00-11.30)
[2023-06-05 04:52] LABS: Bun/Creatinine Ratio 35.7 (12.0-20.0); Calcium, Blood 7.6 mg/dL (8.5-10.1); Creatinine, Blood 1.68 mg/dL (0.40-1.00); Potassium, Blood 4.5 mmol/L (3.5-5.5)
[2023-06-05] MEDS ORDERED: Levothyroxine Sodium 0.1 MG Tab PO SCH (06:00)
--- NOTE | 2023-06-05 06:12 | NUR ---
PT HAS BEEN INCONTINENT TO FOUR LOOSE BROWN/BLACK STOOLS THIS NIGHT. HAS BEEN ABLE TO ASSIST SOME IN TURNS FOR ATTENDS CHANGE. NO COMPLAINTS OF NAUSEA. NO ADÁN BLOOD TO NOTE. HAS BEEN ON ICE AND ICE WATER SINCE EVENING. HAS GONE HOME IN EVENING TIME. NO FAMILY STAYED AT BEDSIDE. PT HAS HAD DIFFICULTY IN SLEEPING THIS NIGHT. STATES THAT THIS IS NORMAL FOR HER TO NOT BE ABLE TO SLEEP. PUREWICK IN PLACE. HAS HAD 650 ML YELLOW URINE OUT. PROTONIX DRIP AT 8MG/HOUR. WILL CONTINUE TO MONITOR PT, AND WILL REPORT OFF TO ONCOMING RN.
[2023-06-05] MEDS ORDERED: Venlafaxine HCl 75 MG CapCR PO SCH (09:00)
[2023-06-05] MEDS ORDERED: Calcium Carbonate 1,250 MG TABLET PO SCH (09:00)
[2023-06-05] MEDS ORDERED: Torsemide 20 MG TAB PO SCH (09:00)
[2023-06-05] MEDS ORDERED: Cholecalciferol 1000 Unit Tablet (=25MCG) PO SCH (09:00)
[2023-06-05] MEDS ORDERED: Losartan Potassium 50 MG Tab PO SCH (09:00)
--- NOTE | 2023-06-05 10:30 | NUR ---
KIMBERLY IS IN THE RECLINER SLEEPING, SHE WAS ABLE TO WAKE AND WORK WITH TESHA FROM P/T. SHE DID PARTICIPATED VERY WELL AND WAS ENGAGING FOR THE ENTIRE SESSION. SHE WAS ABLE TO TAKE HER MEDICATIONS WITHOUT INCIDENT AND HER FLUIDS HAVE NOW BEEN REMOVED SHE IS NPO FOR HER PROCEDURE THIS AFTERNOON. IN AND PT REMAINS VERY SLEEPY FOR HER. AT BEDSIDE.
--- NOTE | 2023-06-05 12:21 | NUR ---
KIMBERLY ROUS TO HAVE SOME CONVERSATION BUT CONTINUES TO SAY SHE IS SLEEPY. ASKS FOR WATER, INFORMED OF NPO STATUS FOR EGD, SHE REMEMBERS. DAUGHTER AND AT THE BEDSIDE. BP REMAINS LOW SINCE AM MEDICATIONS GIVEN.
[2023-06-05] MEDS ORDERED: EpiNEPhrine 1 MG/1 ML 1ML Vial ONE (13:36)
[2023-06-05] MEDS ORDERED: Ethanolamine Oleate 50MG/ML 2ML Amp ONE (13:36)
[2023-06-05] MEDS ORDERED: Lactated Ringer's 1,000 ML IV SCH (13:50)
[2023-06-05] MEDS ORDERED: Lidocaine HCl 2% 10 ML SDA ONE (14:05)
[2023-06-05] MEDS ORDERED: Lidocaine HCl 4% 5 ML SDA ONE (14:05)
[2023-06-05] MEDS ORDERED: Etomidate 2MG / ML 10ML Vial ONE (14:36)
--- NOTE | 2023-06-05 15:20 | NUR ---
06/05/23 1520 Dayna Zhu MONITOR INTACT WITH CONTINUOUS PULSE OXIMETRY, CONTINUOUS END TITAL CO2, AND INTERMITTENT BLOOD PRESSURE.
[2023-06-05] MEDS ORDERED: Flumazenil 0.1 MG / ML 5ML Vial ONE (16:33)
[2023-06-05] MEDS ORDERED: Fluconazole 100 MG Tab PO SCH (17:00)
--- NOTE | 2023-06-05 22:00 | NUR ---
ASSUMED CARE PT A/O X4, ABLE TO ANSWER QUESTIONS APPROPRIATELY AND ASK FOR THINGS WHEN NEEDED. PT ONONDAGA. PT ON 3 L N/C O2 SATS > 95%. CARDIAC MONITORING REFLECTS AFIB, HR 70s-80s. BP SOFT, MAP MAINTAINING > 65. PT DENIES SOB, CP AT THIS TIME. PT DENIES PAIN. DAUGHTER AT BEDSIDE. PT ABLE TO ASSIST WITH REPOSITIOING IN BED. PT INCONT OF URINE, PUREWICK IN PLACE. 2 + EDEMA NOTED BLE. CVC TO RIJ PATENT WITH POSITIVE BLOOD DRAWBACK, DRESSING C/D/I.
[2023-06-06] VITALS (30 sets, daily range): BP systolic 72–136; BP diastolic 43–92
--- NOTE | 2023-06-06 00:08 | NUR ---
ELEVATED BLOOD GLUCOSE GLUCOSE ELEVATED, NOTIFIED HOSPITALIST. SEE EMAR FOR NEW ORDERS.
[2023-06-06] MEDS ORDERED: Insulin Glargine-Yfgn 100 Unit/mL 3 ML SYR SC SCH (00:10)
[2023-06-06 03:58] LABS: Hematocrit 28.3 % (33.0-51.0); Mean Corpuscular HGB 27.5 pg (26.0-34.0); Mean Corpuscular HGB Conc 31.8 g/dL (31.5-36.5); Mean Corpuscular Volume 87 fL (80-100); Mean Platelet Volume 9.9 fL (9.1-12.4); NRBC ABSOLUTE 1.23 K/mm3 (0.00-0.02); NRBC Auto 12.2 /100 WBC (0.0-0.2); Platelet Count 537 K/mm3 (150-400); RDW Coefficient Variation 18.1 % (11.7-14.2); RDW Standard Deviation 56.6 fL (35.1-46.3); Red Blood Cell Count 3.27 M/mm3 (3.80-5.20); White Blood Cell Count 10.05 K/mm3 (4.00-11.30)
[2023-06-06 04:21] LABS: Bun/Creatinine Ratio 30.7 (12.0-20.0); Calcium, Blood 7.4 mg/dL (8.5-10.1); Creatinine, Blood 1.79 mg/dL (0.40-1.00); Potassium, Blood 5.4 mmol/L (3.5-5.5)
--- NOTE | 2023-06-06 05:06 | NUR ---
SHIFT SUMMARY PT REMAINS A/O X4, PT ABLE TO MAKE NEEDS KNOWN AND USE CALL LIGHT WHEN NEEDING ASSISTANCE. PT HAS BEEN ABLE TO ASSIST WITH REPOSITIONING AND AT TIMES REPOSITION IN BED INDEPENDENTLY ONTO SIDE. PT CONTINUES TO DENY PAIN. PT ON RA, O2 SATS > 94%. CARDIAC MONITORING REFLECTS AFIB, HR 70s-80s. BP SOFT THIS SHIFT, MAP MAINTAINED > 60 AND PT ASYMPTOMATIC. DENIES DIZZINESS, REMAINED ALERT T/O SHIFT. SKIN WARM, PT NOT DIAPHORETIC. PT DENIES CP AND SOB. PT INCONT OF URINE, PUREWICK IN PLACE. PT DENIES ABD PAIN OR CRAMPING, TOLERATING CLEAR LIQUIDS. PROTONIX GTT INFUSING THROUGH CVC TO RIJ.
--- NOTE | 2023-06-06 08:54 | NUR ---
ASSUMED CARE OF KIMBERLY AT 0700 AT BEDSIDE REPORT. SHE WAS LAYING ON HER LEFT SIDE. SHE WAKENS COMPLAINING OF BACK PAIN AND IS OFFERED THE RECLINER. SHE AGREES AND USES THE WALKER TO TRANSFER TO THE RECLINER. K-PAD IN USE FOR HER BACK AND NECK DISCOMFORT. SHE IS ABLE TO TAKE HER MEDICATIONS, CARDIAC MEDS HELD FOR LOW BLOOD PRESSURE. SHE DENIES ANY STOMACH PAIN, NAUSEA OR VOMITING.
[2023-06-06] MEDS ORDERED: Acetaminophen 325 MG TABLET PO PRN (14:30)
--- NOTE | 2023-06-06 16:27 | NUR ---
KIMBERLY CALLED THIS RN TO THE ROOM TO SAY SHE FELT LIKE SHE WAS HAVING SOME PANIC ATTACKS, ASKED IF THERE WAS SOMETHING THAT COULD HELP. SHE WAS GIVEN THE OPTION OF THE HYDROXYZINE, SHE WELCOMED THE TRIAL. ALSO LETTING ME KNOW THAT THE TYLENOL HASN'T BEEN MUCH HELP OF RIGHT NOW. SHE DECLINED THE HEATING PAD. IS NOW AT THE BEDSIDE. DAUGHTER HAS LEFT FOR THE DAY.
--- NOTE | 2023-06-06 18:17 | NUR ---
KIMBERLY IS CURRENTLY SLEEPING ON HER LEFT SIDE, SHE WAS SLEEPING SO HARD SHE DIDN'T NOTICE HER BLOOD SUGAR BEING TAKEN OR THE INSULIN SHOT. SHE IS BREATHING WELL, SATS >95% BP LABILE, ESPECIALLY WITH RIGHT ARM UP. AT BEDSIDE. ASKING ABOUT PLAN FOR COLONOSCOPY, EDUCATION GIVEN. NO NEWS FROM DR. AN TODAY. NO N/V OR C/O ABDOMINAL PAIN.
--- NOTE | 2023-06-06 22:00 | NUR ---
ASSUMED CARE CARE WAS ASSUMED OF PT AT 1900, REPORT GIVEN BY RISHABH GARCIA. PT A/O X4, ABLE TO ANSWER QUESTIONS APPROPRIATELY AND USE CALL LIGHT. PT DENIES PAIN. PT ON RA, O2 SATS > 94%. PT DENIES SOB AND CP. CARDIAC MONITORING REFLECTS AFIB, HR 70s-90s. BP SOFT, MAP MAINTAINING > 65. PT INCONT OF URINE, PUREWICK IN PLACE. PT ABLE TO REPOSITION FROM SIDE TO SIDE INDEPENDENTLY. CVC TO RIJ IN PLACE, INFUSING.
[2023-06-07] VITALS (20 sets, daily range): BP systolic 81–136; BP diastolic 53–92
[2023-06-07 05:00] LABS: BASOPHILS ABSOLUTE AUTO 0.12 K/mm3 (0.00-0.23); BASOPHILS PERCENT AUTO 1 % (0-2); EOSINOPHILS ABSOLUTE AUTO 0.36 K/mm3 (0.00-0.68); EOSINOPHILS PERCENT AUTO 3 % (0-6); Hematocrit 30.5 % (33.0-51.0); Hemoglobin 9.6 g/dL (11.5-16.0); IMMATURE GRAN ABSOLUTE AUTO 0.05 K/mm3 (0.00-0.10); IMMATURE GRAN PERCENT AUTO 0 % (0-1); LYMPHOCYTES PERCENT AUTO 26 % (21-46); MONOCYTES ABSOLUTE AUTO 1.53 K/mm3 (0.16-1.47); MONOCYTES PERCENT AUTO 13 % (4-13); Mean Corpuscular HGB 27.1 pg (26.0-34.0); Mean Corpuscular HGB Conc 31.5 g/dL (31.5-36.5); Mean Corpuscular Volume 86 fL (80-100); NEUTROPHILS ABSOLUTE AUTO 6.47 K/mm3 (1.96-9.15); NEUTROPHILS PERCENT AUTO 56 % (41-73); NRBC ABSOLUTE 1.27 K/mm3 (0.00-0.02); Platelet Count 551 K/mm3 (150-400); RDW Coefficient Variation 18.4 % (11.7-14.2); RDW Standard Deviation 57.4 fL (35.1-46.3); Red Blood Cell Count 3.54 M/mm3 (3.80-5.20); White Blood Cell Count 11.53 K/mm3 (4.00-11.30)
[2023-06-07 05:17] LABS: Bun/Creatinine Ratio 28.1 (12.0-20.0); Calcium, Blood 7.7 mg/dL (8.5-10.1); Creatinine, Blood 1.99 mg/dL (0.40-1.00); Potassium, Blood 4.7 mmol/L (3.5-5.5)
--- NOTE | 2023-06-07 06:23 | NUR ---
SHIFT SUMMARY PT HAD NO ACUTE CHANGES THIS SHIFT. PT REMAINS A/O X4, USES CALL LIGHT TO MAKE NEEDS KNOWN. PT ON RA, O2 SATS > 94%. HALL CLERK CONTINUES TO SHOW AFIB, HR 90s-100s. BP STABLE. CVC TO RIJ PATENT. PROTONIX GTT INFUSING. PT INCONT OF URINE, PUREWICK IN PLACE.
[2023-06-07] MEDS ORDERED: Peg/Electrolytes 4,000 ML BTL PO STA (06:54)
--- NOTE | 2023-06-07 07:50 | NUR ---
ASSUMED CARE: REPORT RECEIVED FROM TERESSA Villalta RN. ASSUMED CARE OF THIS PT AT APPROX 0700. ON ASSESSMENT, THE PT IS RESTING QUIETLY & AWAKENS EASILY TO VERBAL STIMULUS. SHE IS [place] & REQUIRES SPEAKER TO STAND CLOSE/ SPEAK LOUDLY TO COMMUNICATE. LS DIM IN BASES, PT ON RA W/ O2 SATS > 92%. MONITOR SHOWS AFIB W/ HR 90-100s, BP STABLE. BOWEL PREP STARTED THIS AM PER ORDERS, WILL CONTACT DR AN ONCE PT IS FINISHING LAST CUP OF GOLYTELY SOLUTION. PUREWICK IN PLACE, PT HAVING URGENCY INCONTINENCE BUT IS CONTINENT AT BASELINE, PER HER REPORT. SKIN OVERALL INTACT, FRAGILE, ECCHYMOTIC. PT ABLE TO REPOSITION SELF PRN FOR COMFORT TO MAINTAIN SKIN INTEGRITY. WILL CONTINUE TO MONITOR & UPDATE NEEDED.
[2023-06-07] MEDS ORDERED: Phenylephrine HCl 100 MCG/ML-NS 10MLSYR (1MG/10ML) IV ONE (12:00)
[2023-06-07] MEDS ORDERED: ePHEDrine Sulfate 50 MG/ML 1ML Injection XX ONE (12:00)
[2023-06-07] MEDS ORDERED: Lactated Ringer's 1,000 ML IV SCH (15:10)
--- NOTE | 2023-06-07 15:20 | NUR ---
TRANSFER TO PCU: REPORT HAS BEEEN GIVEN TO MCKENNA Muñoz RN TO ASSUME CARE. PT TRANSFERRED VIA WC TO PCU-12 AT APPROX 1518. CHART & ALL BELONGINGS HAVE TRANSFERRED W/ PT AT THAT TIME. SHE CONTINUES TO HAVE CLEAR-YELLOW LIQUID STLS. DR AN & DAY SURGERY STAFF AWARE THAT PT HAS COMPLETED GOLYTELY AT APPROX 1245 THIS AFTERNOON. PROVIDER & STAFF ALSO AWARE OF PT TRANSFER TO PCU.
--- NOTE | 2023-06-07 15:45 | NUR ---
INTO [facility] VIA [employer]. History, Chart, Medications and Allergies reviewed before start of procedure.HR 110's afib. Pedal edema noted.Lungs diminished in the bases.Sats>90% on ra. Patient confirms NPO status and agrees with scheduled surgery. Patient states colon prep results clear.Pt daughter at bedside to assist with consent/decision making.
[2023-06-07] MEDS ORDERED: propofoL 50 ML IV ONE (15:47)
[2023-06-07] MEDS ORDERED: Dexmedetomidine HCL 200 MCG / 2 ML ONE (16:12)
--- NOTE | 2023-06-07 16:22 | NUR ---
06/07/23 1622 Saumya Nieves History, Chart, Medications and Allergies reviewed before start of procedure.MONITOR INTACT WITH CONTINUOUS PULSE OXIMETRY, CONTINUOUS END TITAL CO2, AND INTERMITTENT BLOOD PRESSURE.3-LEAD EKG REVIEWED WITH PHYSICIAN PRIOR TO START OF PROCEDURE.O2 VIA N/C INTACT THROUGHOUT SEDATION/PROCEDURE.DR. KHALIL PROVIDING MAC.
--- NOTE | 2023-06-07 17:16 | NUR ---
UPDATE PT RETURNED FROM DAY SURGERY AFTER COLONOSCOPY. PT LETHARGIC, BUT WAKES TO VERBAL STIMULI. BP STABLE. HR AFIB 100'S. 02 SATS >90% ON RA. PT DENIES ANY PAIN. DAUGHTER AT BEDSIDE UPDATED ON PLAN OF CARE. ULCER TO LEFT HEEL CLEANED AND DRESSED. WILL CONTINUE TO MONITOR CLOSELY AND REPORT TO ONCOMING RN
--- NOTE | 2023-06-07 20:15 | NUR ---
ASSUMPTION OF CARE: PATIENT IS ALERT AND ORIENTED X 4. NO ACTIVE CONCERNS. PROTONIX INFUSING THROUGH CENTRAL LINE. DENIES CHEST PAIN PRESSURE OR SOB. AFIB 100'S-120'S PATIENT HAS HAD SOFTER BLOOD PRESSURES, DAY RN HELD CARVEDILOL. VERY QUINAULT, MOTIVATIONAL DEFICIET NOTED, REFUSED SCD'S AT THIS TIME, PUREWIC IN PLACE. NO URINE IN CONTAINER AT THIS TIME. CL DIET AT THIS TIME. REPOSITIONED. RA SPO2 >96%. TELE IN PLACE. CONTINUOUS PULSE OX.
[2023-06-08 00:19] VITALS: BP 99/66
[2023-06-08 01:40] VITALS: BP 109/43
[2023-06-08 03:24] VITALS: BP 114/74
[2023-06-08 03:57] LABS: Hematocrit 29.7 % (33.0-51.0); Hemoglobin 9.4 g/dL (11.5-16.0); Mean Corpuscular HGB Conc 31.6 g/dL (31.5-36.5); Mean Corpuscular Volume 85 fL (80-100); Mean Platelet Volume 9.9 fL (9.1-12.4); Platelet Count 502 K/mm3 (150-400); RDW Coefficient Variation 18.4 % (11.7-14.2); RDW Standard Deviation 56.9 fL (35.1-46.3); Red Blood Cell Count 3.48 M/mm3 (3.80-5.20); White Blood Cell Count 8.98 K/mm3 (4.00-11.30)
--- NOTE | 2023-06-08 05:29 | NUR ---
EOS: ONLY CONCERN AND CHANGE IS PATIENT WAS 333 ON 0000 CBG HUMLOG GIVEN PER Q6 DOSING. PATIENT MAP :65. DURING THE BEGGINING OF THE SHIFT SHE WAS BECOMING PULSE OF 110-130'S AFIB, CARVEDILOL WAS HELD BY DAY RN, THIS RN CONFIRMED AND GAVE DOSING MAP :70 AT TIME OF ADMISSION.
[2023-06-08 06:25] LABS: Bun/Creatinine Ratio 26.7 (12.0-20.0); Calcium, Blood 7.7 mg/dL (8.5-10.1); Creatinine, Blood 1.87 mg/dL (0.40-1.00)
[2023-06-08 08:00] VITALS: BP 103/73
--- NOTE | 2023-06-08 15:09 | NUR ---
PT IS ALERT, ORIENTED TO PERSON, PLACE SELF, YEAR, PRESIDENT. SHE IS PLEASANT AND COOPERATIVE WITH CARE. DENIES CP, PULSES STRONG AND EVEN AT RADIAL AND PEDAL. SKIN PWD, DRESSING IN PLACE TO LEFT HEEL, EDEMA 1+ NOTED TO LEFT LEG. VSS. SHE DENIES SOB, NO RESPIRATORY DISTRESS NOTED, NO NASAL FLARRING. VSS. NADN. ABD SOFT AND ROUND, DENIES DIARRHEA OR CONSTIPATION. SHE IS AGREEABLE TO GO TO SNF, POSSIBLE D/C TOMORROW TO SNF. SHE ANSWERS QUESTIONS APPROPRIATELY, BUT IS A POOR HISTORIAN. BLOOD SUGARS HAVE REQUIRED COVERAGE T/O THE DAY.
[2023-06-08] MEDS ORDERED: Insulin Human Lispro 100 Units/ML 3ML Syringe SC SCH (16:30)
[2023-06-08 16:31] VITALS: BP 104/77
[2023-06-08 20:00] VITALS: BP 125/73
[2023-06-09] VITALS (8 sets, daily range): BP systolic 100–133; BP diastolic 57–74
--- NOTE | 2023-06-09 00:30 | NUR ---
END OF SHIFT/TRANSFER AT START OF SHIFT PT HAD SOME COMPLAINTS OF SOB. PT DID LOOK TO BE MORE LABORED WITH SHALLOW BREATHING. SATS WNL. SUPPLEMENTAL O2 AT 2L WAS PLACED FOR COMFORT AND PT REPORTED IT HELP SIGNIFICANTLY. NO ADDITIONAL COMPLAINTS OF SOB. PT TO TRANSFER TO SURG ROOM 208. PT TRANSFERRED WITH ALL BELONGING. PT DID NOT WANT FAMILY TO BE NOTIFIED CURRENTLY.
--- NOTE | 2023-06-09 00:48 | NUR ---
TRANSFER REPORT TAKEN TO ASSUME CARE OF PT AT THIS TIME. PT TRANSFFERED FROM PCU 12, TO ROOM 208. PT STABLE, DENIES NEEDS. BED IN LOW POSITION, CALL LIGHT WITHIN REACH.
[2023-06-09] MEDS ORDERED: Pantoprazole Sodium 40 MG Injection ONE (03:32)
--- NOTE | 2023-06-09 04:32 | NUR ---
SHIFT SUMMARY NO ACUTE EVENTS SINCE TRANSFER TO THE UNIT. PT HAS RESTED OFF AND ON T/O THE SHIFT. NO COMPLAINTS OF PAIN. RESP E/U, PT ABLE TO MAINTAIN SATS WNL ON RA. PROTONIX GTT INFUSING. VITALS STABLE. PLAN IS FOR DC SNF. BED IN LOWEST POSITION, CALL LIGHT WITHIN REACH.
[2023-06-09 04:35] LABS: Hematocrit 31.5 % (33.0-51.0); Hemoglobin 10.1 g/dL (11.5-16.0)
[2023-06-09 05:07] LABS: Anion Gap 5 mmol/L (6-16); Blood Urea Nitrogen 47 mg/dL (8-24); Bun/Creatinine Ratio 24.5 (12.0-20.0); CO2, Blood 21 mmol/L (21-32); Calcium, Blood 8.1 mg/dL (8.5-10.1); Chloride, Blood 106 mmol/L (98-108); Creatinine, Blood 1.92 mg/dL (0.40-1.00); Glomerular Filtration Rate 26 (60-); Glucose, Blood 260 mg/dL (70-99); Phosphorus, Blood 3.8 mg/dL (2.5-4.9); Potassium, Blood 4.9 mmol/L (3.5-5.5); Sodium, Blood 132 mmol/L (136-145)
--- NOTE | 2023-06-09 06:17 | NUR ---
INCREASED SOB PT COMPLAINING OF SOB, REPORT RECEVIED FROM [place] STUDIES PROFESSOR BEFORE HER TRANSFER TO SURGICAL UNIT THAT PT HAD BEEN COMPLAINING OF SOB AND THAT SHE WAS PLACED ON 2L O2 FOR COMFORT. SATS WNL ON 2L. BREATHING APPEARS SLIGHTLY LABORED. PT HAS EDEMA. HX OF CHF, AND IS ON TOROSEMIDE. DR. SUAZO CALLED AND NOTIFIED ABOUT PT COMPLAINTS OF SOB AND PHM OF CHF. HE IS AWARE THAT PT ON IV FLUIDS/PROTONIX GTT. HE ORDERED A BNP. NO ADDITIONAL ORDERS AT THIS TIME.
[2023-06-09] MEDS ORDERED: Torsemide 10 MG TAB PO ONE (11:50)
--- NOTE | 2023-06-09 14:40 | NUR ---
Pt. is awake in bed and welcomes my visit. Pt. is pleasant. Facilitate a life review. Pt. displays evidence of awareness and engagement. Seek to establish rapport and connectedness by building a relationship of care and support. Explore the Pts. rocky and values as well as the hope those values bring her. Prayed with the Pt. While praying, the Pts. daughter enters the room. facilitate further life review and build rapport with Pts. daughter. Pt. verbalizes gratitude for the spiritual care visit.
--- NOTE | 2023-06-09 15:49 | NUR ---
PT GOT LIGHTHEADED/DROOPED OVERT TO SIDE WHEN WORKING WITH THERAPY PER OFFSHORE WIND OPERATIONS MANAGER. BP DROPPED PT SAT ON EDGE OF BED WITH OCC THERAPY. PT BECAME LIGHTHEADED AND WOOZY, LEANING OVER ON OT. OFFSHORE WIND OPERATIONS MANAGER AND OT ASSISTED BACK TO BED AND RECHECKED VS. PT ALERT NOW. STATED VISION FEELS SLIGHTLY OFF. SMILE SYMMETRICAL AND EAP COUNSELOR EQUAL AND STRONG. DISCUSSED THIS AND APPARENT WEIGHT GAIN WITH DR FLORES. NO NEW ORDERS AT THIS TIME. PT RESTING IN BED. CALL LIGHT IN REACH.
[2023-06-09] MEDS ORDERED: Pantoprazole Sodium 40 MG Tab PO SCH (16:30)
[2023-06-09 16:43] LABS: Albumin, Blood 1.8 g/dL (3.4-5.0); Anion Gap 3 mmol/L (6-16); Blood Urea Nitrogen 50 mg/dL (8-24); Bun/Creatinine Ratio 23.9 (12.0-20.0); CO2, Blood 24 mmol/L (21-32); Calcium, Blood 7.8 mg/dL (8.5-10.1); Chloride, Blood 103 mmol/L (98-108); Creatinine, Blood 2.09 mg/dL (0.40-1.00); Glomerular Filtration Rate 24 (60-); Glucose, Blood 399 mg/dL (70-99); Phosphorus, Blood 3.6 mg/dL (2.5-4.9); Potassium, Blood 4.6 mmol/L (3.5-5.5); Sodium, Blood 130 mmol/L (136-145)
[2023-06-09] MEDS ORDERED: Insulin Human Lispro 100 Units/ML 3ML Syringe SC SCH (17:25)
[2023-06-09 18:15] LABS: Source, Urine Foley catheter
[2023-06-09 18:27] LABS: Appearance, Urine Clear (Clear); Bilirubin, Urine Neg (Neg); Blood, Urine Neg (Neg); Color, Urine Yellow (P-Yellow); Glucose Qualitative, Urine 3+ (Neg); Ketones, Urine Neg (Neg); Leukocyte Esterase, Urine Neg (Neg); Nitrite, Urine Neg (Neg); Protein, Urine 2+ (Neg); Urobilinogen, Urine NORM (Normal)
--- NOTE | 2023-06-09 18:28 | NUR ---
SUMMARY PT EATING DINNER AT THIS TIME. THIS AFTERNOON, PT WORKED WITH PT, SITTING UP ON EDGE OF BED, BECAME LIGHTHEADED AND LEANED OVER ON OCCUPATIONAL THERAPIST. BP DROPPED DURING THIS TIME PER FLOAT BUILDER. FLOAT BUILDER AND OT ASSISTED PT BACK TO LYING POSITION AND BP IMPROVED DID PT'S LIGHTHEADEDNESS ALTHOUGH SHE SAID HER VISIONS WAS "OFF". REPORTED TO DR FLORES PER PREVIOUS NOTE. PT HAD SMALL AMOUNTS OF URINE OUT BUT COMPLAINED THIS AFTERNOON OF URGENCY. UPON BS, IT WAS FOUND PT HAD READING OF GREATER THAN 1000 ML IN BLADDER. OBTAINED ORDER FOR ESTRADA CATHEER AND PLACED. DRAINING YELLOW URINE TO GRAVITY AT THIS TIME. BLOOD SUGARS HAVE STEADILY INCREASED T/O DAY, REPORTED TO DR FLORES AND ORDERS OBTAINED TO CHANGE HUMALOG TO HSS AND START AT DINNER, WHICH WAS DONE PER ORDER. DISCUSSED WEIGHT GAIN AND AFTERNOON RENAL FUNCTION PANEL WITH DR FLORES. FAMILY BEDSIDE. CALL LIGHT IN REACH.
[2023-06-09 18:33] LABS: Red Blood Cells, Urine 0-2 /hpf (0-2); White Blood Cells, Urine 0-2 /hpf (0-5)
[2023-06-09 18:34] LABS: Bacteria Rare /hpf; Renal Epithelial Rare /hpf (0-Rare); Squamous Epithelial Cells Few /hpf (Few)
[2023-06-10] VITALS (10 sets, daily range): BP systolic 87–130; BP diastolic 51–77
--- NOTE | 2023-06-10 00:22 | NUR ---
PROVIDER ROUNDED ON PT PT HAVING INTERMITTENT SPASMODIC LIKE MOVEMENTS, CRYING OUT AND YELLING. EYES ARE WIDE, AND PT APPEARS PANICKED. PT DENIES PAIN. SHE STATES THAT IT'S ALMOST LIKE SHE BLACKS OUT. PT EYES APPEAR GLAZED OVER, PUPILS SLUGGISH. DURING THESE EPISODES PT IS RESPOSNIVE AND ANSWERS QUESTIONS APPROPRIATELY. FOOD ANALYST KASIE MADE AWAR, AND ROUNDED ON PT ALSO. DR. SUAZO CALLED AND NOTIFIED, AND ROUNDED ON PT, HE BELIEVES IT TO BE ANXIETY AND ORDERED IV BENADRYL. PT MEDICATED EARLIER IN THE SHIFT FOR ANXIETY PER HER REQUEST WITHOUT MUCH EFFECT.
[2023-06-10] MEDS ORDERED: DiphenhydrAMINE HCl 50 MG/ML 1ML Vial IV ONE (00:25)
[2023-06-10] MEDS ORDERED: Midodrine 5 MG Tab PO ONE (02:50)
[2023-06-10 03:06] LABS: BASOPHILS ABSOLUTE AUTO 0.14 K/mm3 (0.00-0.23); BASOPHILS PERCENT AUTO 1 % (0-2); EOSINOPHILS ABSOLUTE AUTO 0.27 K/mm3 (0.00-0.68); EOSINOPHILS PERCENT AUTO 3 % (0-6); Hematocrit 29.1 % (33.0-51.0); Hemoglobin 9.2 g/dL (11.5-16.0); IMMATURE GRAN ABSOLUTE AUTO 0.06 K/mm3 (0.00-0.10); IMMATURE GRAN PERCENT AUTO 1 % (0-1); LYMPHOCYTES ABSOLUTE AUTO 2.33 K/mm3 (0.84-5.20); LYMPHOCYTES PERCENT AUTO 24 % (21-46); MONOCYTES ABSOLUTE AUTO 1.51 K/mm3 (0.16-1.47); MONOCYTES PERCENT AUTO 15 % (4-13); Mean Corpuscular HGB Conc 31.6 g/dL (31.5-36.5); Mean Corpuscular Volume 85 fL (80-100); Mean Platelet Volume 9.8 fL (9.1-12.4); NEUTROPHILS ABSOLUTE AUTO 5.54 K/mm3 (1.96-9.15); NEUTROPHILS PERCENT AUTO 56 % (41-73); NRBC ABSOLUTE 0.39 K/mm3 (0.00-0.02); Platelet Count 455 K/mm3 (150-400); RDW Coefficient Variation 18.9 % (11.7-14.2); RDW Standard Deviation 59.1 fL (35.1-46.3); Red Blood Cell Count 3.41 M/mm3 (3.80-5.20); White Blood Cell Count 9.85 K/mm3 (4.00-11.30)
[2023-06-10 03:24] LABS: Bun/Creatinine Ratio 22.1 (12.0-20.0); Calcium, Blood 7.7 mg/dL (8.5-10.1); Creatinine, Blood 2.26 mg/dL (0.40-1.00); Potassium, Blood 4.9 mmol/L (3.5-5.5)
--- NOTE | 2023-06-10 03:25 | NUR ---
UPDATE PT SLEEPING AFTER BENEDRYL PER ORDERS. NO LONGER MAKING SPASMIC MOVEMENTS. PT VERY SLEEPY BUT ROUSES WITH VERBAL STIMULI BUT QUICKLY DRIPS OFF TO SLEEP. ARMS ARE FLACCID AT HER SIDES. RESP ARE E/U ON 2L O2. PT BLOOD PRESSURES ARE SOFT UPPER 80'-90'S SBP, HR AFIB ON TELE AND RATE IS CONTROLLED. PCU ELEMENTARY INSTRUCTIONAL COACHRADHA PRASAD WAS ASKED BY OUR ELEMENTARY INSTRUCTIONAL COACH MEGAN TO COME ASSESS PT, PT HAD TRANSFERRED FROM THEIR UNIT A DAY PRIOR. OSMAR STATES THAT PT WAS NOT LIKE THIS WHILE SHE WAS IN PCU. THAT HER MENTATION WAS CLEAR AND THAT SHE WAS NOT HAVING SPASMODIC EPSIODES DESCRIBED IN MY PREVIOUS NURSES NOTE. WHEN AWAKE AROUND 0100 PT ABLE TO ANSWERS QUESTIONS APPROPRIATELY, BUT SPEECH IS OCCASIONALLY NONSENSICAL, PT STRINGS TOGETHER SENTENCES THAT DO NOT MAKE SENSE. NEURO ASSESSMENT PERFROMED JUST BEFORE PT FEEL ASLEEP. PT ABLE TO HOLD OUT HER ARMS IN FRONT OF HER, AND ABOVE HER HEAD WITHOUT ISSUES. LABEL PINKER ARE STRONG. FOLLOWS DIRECTIONS. 0230 DR. SUAZO CALLED AGAIN BY ELEMENTARY INSTRUCTIONAL COACH MEGAN, AND NOTIFIED OF PT LOW BLOOD PRESSURES, AND THAT PT WAS ROUNDED ON BY PCU ELEMENTARY INSTRUCTIONAL COACH, WHO STATED THAT THERE WAS A CHANGE FROM PT BASELINE. HE ORDERED LABS AND ALSO MIDODRINE FOR BLOOD PRESSURE. 0257 LABS ARE DONE AND ARE PROCESSING. PT TOO LETHARGIC TO SAFELY SWALLOW MEDICATIONS SO MIDODRINE HELD. 0322 VITALS ARE BEING MONITORED. PT APPEARS SLEEPING AT THIS TIME.
--- NOTE | 2023-06-10 03:42 | NUR ---
UPDATE LABS HAVE BEEN RECEIVED, NO SIGNIFICANT CHANGE FROM PREVIOUS LABS. BLOOD PRESSURES ARE SOFT BUT MAP IS WNL. PT IS NOW ALERT AND AWAKE, SPEECH IS CLEAR AND COHERENT. NO DISTRESS NOTED. PT IS ASKING TO BE REPOSITIONED BY STAFF.
--- NOTE | 2023-06-10 04:07 | NUR ---
SHIFT SUMMARY PT HAS HAD AN EVENTFUL SHIFT. FOR A GOOD PORITION OF THE SHIFT PT WAS HAVING SPASMIC LIKE JERKY MOVEMENTS, THAT APPEARED RANDOM AND UNCONTROLLED. SHE WAS YELLING OUT, AND STARING OFF BLANKLY. PT WAS DOING THIS INTERMITTENTLY. PT STATED THAT SHE DID NOT KNOW WHAT WAS WRONG WITH HER, BUT REPORTED FEELING OFF. WAS AT BEDSIDE WITH PT AT THE START OF THE SHIFT, AND STATED THAT SHE DOES THIS SOMETIMES AT HOME, BUT THAT IT IS MUCH WORSE HERE IN THE HOSPITAL. PT REQUESTED SOMETHING FOR ANXIETY. EMILY CALLED AND NOTIFIED AND VISTARIL GIVEN. PT SLEPT FOR A LITTLE, BUT THE EPISODES RETURNED AND WERE MUCH MORE PRONOUCNED. PT WAS MOANING AND YELLING OUT MORE, SPEECH WAS SLIGHLY SLURRED AND PT APPEARED MORE DAZED, WITH OCCASIONAL NONSENSICAL SPEECH. DR. SUAZO CALLED AND NOTIFIED OF THIS AND ROUNDED ON PT. BENEDRYL WAS ORDERED FOR ANXIETY, AND PT WAS ABLE TO REST A FEW HOURS. BP WAS SOFT WITH AM VITALS, DR. SUAZO NOTIFIED OF THAT ALSO AND LABS WERE ORDERED. LABS ARE TRENDING AROUND PT BASELINE THIS AM. PT AWAKE AND AT HER BASELINE AT THE TIME OF THIS NOTE AND NO LONGER MAKING SPASMIC JERKING MOVMENTS. SPEECH AND MENTATION IS CLEAR. BP IS SOFT BUT MAP WNL. TELE IN PLACE, AFIB AND RATE IS CONTROLLED. WHEN AWAKE PT ASKS TO BE REPOSITIONED, FREQUENTLY. PT DENIES PAIN OF ANY KIND. DRESSING TO L HEEL CHANGED THIS SHIFT. BED IN LOWEST POSITION, CALL LIGHT WITHIN REACH.
[2023-06-10] MEDS ORDERED: Torsemide 10 MG TAB PO SCH (10:35)
[2023-06-10] MEDS ORDERED: Dose Adjust by Pharmacy XX STA (11:23)
[2023-06-10] MEDS ORDERED: Darbepoetin Alfa In Albumn Sol 40 MCG/0.4 ML SC ONE (16:00)
--- NOTE | 2023-06-10 17:13 | NUR ---
SUMMARY NO ACUTE CHANGES T/O SHIFT. PT REPORTED THIS AM THAT SHE FELT LIKE "THE [place]" THAT SHE EXPERIENCED DURING CONVENTION MANAGER WAS GOING TO COME BACK. DISCUSSED RELAXATION BREATHING WITH PT. PT A&O T/O DAY. DR BERNARDO CONSULTED, SAW PT THIS AFTERNOON. PT GOT UP TO CHAIR WITH OCCUPATIONAL THERAPY. PT FATIGUED WHEN RETURNED TO BED, TOOK TWO PERSON ASSIST TO STAND AND PIVOT TO BED W/GAIT BELT AND FWW. PT TOOK NAP DURING AFTERNOON. DRESSING CHANGED TO L FOOT. PT TOLERATED WELL. PT NOW RESTING IN BED, CALL LIGHT IN REACH. DAUGHTER BEDSIDE.
[2023-06-10] MEDS ORDERED: Bumetanide 0.25 MG/ML 4ML ViaL IV SCH (18:00)
[2023-06-11 03:16] VITALS: BP 148/89
[2023-06-11 04:58] LABS: Hematocrit 30.4 % (33.0-51.0); Hemoglobin 9.7 g/dL (11.5-16.0)
--- NOTE | 2023-06-11 05:19 | NUR ---
SHIFT SUMMARY NO ACUTE CHANGES OVERNIGHT. VS WNL FOR PT, BP TRENDING UPWARD, 2L O2 VIA NC, SAT >95%, NO TELE EVENTS, BASELINE A-FIB. TOLERATING ORALS. A&O x4 T/O SHIFT; 1 EPISODE OF ANXIETY OVERNIGHT, MEDICATED PER EMAR c MELATONIN, SYMPTOMS RESOLVED. ESTRADA IN PLACE, DRAINING YELLOW URINE TO GRAVITY.PT ON BEDREST AT THIS TIME, 2 PERSON ASSIST FOR REPOSITIONING. PT SLEPT WELL THROUGHOUT THE NIGHT. PLAN TO CONTINUE TO DIURESE PT, EDEMA NOTED IN ALL EXTREMITIES. CALL LIGHT WITHIN REACH, BED IN LOWEST POSITION, WILL REPORT TO DAY RN.
[2023-06-11 05:27] LABS: Anion Gap 3 mmol/L (6-16); Blood Urea Nitrogen 52 mg/dL (8-24); Bun/Creatinine Ratio 22.6 (12.0-20.0); CO2, Blood 26 mmol/L (21-32); Calcium, Blood 8.2 mg/dL (8.5-10.1); Chloride, Blood 103 mmol/L (98-108); Glomerular Filtration Rate 21 (60-); Glucose, Blood 187 mg/dL (70-99); Magnesium, Blood 1.8 mg/dL (1.6-2.4); Phosphorus, Blood 3.9 mg/dL (2.5-4.9); Potassium, Blood 4.8 mmol/L (3.5-5.5); Sodium, Blood 132 mmol/L (136-145)
[2023-06-11 07:10] VITALS: BP 120/77
[2023-06-11 16:01] VITALS: BP 120/71
--- NOTE | 2023-06-11 17:09 | NUR ---
SHIFT SUMMARY: PATIENT IS A&OX4, WITH FORGETFULNESS OF TIME/DATE BUT EASILY REORIENTED. VS ARE WNL AND IS ON RA AT THIS TIME WITH >90% OXYGEN SATS. PATIENT REPORTED PAIN TO HER LEFT HEEL BUT HAS BEEN MANAGED WITH PO TYLENOL. PATIENT IS TOLERATING PO INTAKE AND HAS A ESTRADA DRAINING PER GRAVITY WITH YELLOW URINE. PATIENT HAS ALSO HAD A COUPLE OF INCONTINENT BMS TODAY. PATIENT CONTINUES TO BE ON A 1L FLUID RESTRICTION. HER CENTRAL LINE IN HER RIGHT JUGULAR IS SALINE LOCKED AT THIS TIME. HER LEFT HEEL HAS KERLEX AND THE SOFT PINK HEEL PROTECTOR THAT IS C/D/I. WOUND CARE NURSE CONSULT ORDER IS PLACED. PATIENT IS A SBA WITH FWW AND GAIT BELT. PATIENT IS CURRENTLY LAYING IN BED WITH CALL LIGHT IN REACH AND FAMILY AT BEDSIDE.
[2023-06-11 19:38] VITALS: BP 110/78
[2023-06-12 02:07] VITALS: BP 121/69
[2023-06-12 06:15] LABS: BASOPHILS ABSOLUTE AUTO 0.13 K/mm3 (0.00-0.23); BASOPHILS PERCENT AUTO 1 % (0-2); EOSINOPHILS ABSOLUTE AUTO 0.44 K/mm3 (0.00-0.68); EOSINOPHILS PERCENT AUTO 4 % (0-6); Hematocrit 30.2 % (33.0-51.0); Hemoglobin 9.4 g/dL (11.5-16.0); IMMATURE GRAN ABSOLUTE AUTO 0.04 K/mm3 (0.00-0.10); IMMATURE GRAN PERCENT AUTO 0 % (0-1); LYMPHOCYTES ABSOLUTE AUTO 2.84 K/mm3 (0.84-5.20); LYMPHOCYTES PERCENT AUTO 26 % (21-46); MONOCYTES PERCENT AUTO 15 % (4-13); Mean Corpuscular HGB 26.4 pg (26.0-34.0); Mean Corpuscular HGB Conc 31.1 g/dL (31.5-36.5); Mean Corpuscular Volume 85 fL (80-100); Mean Platelet Volume 10.2 fL (9.1-12.4); NEUTROPHILS ABSOLUTE AUTO 5.91 K/mm3 (1.96-9.15); NEUTROPHILS PERCENT AUTO 53 % (41-73); NRBC Auto 1.8 /100 WBC (0.0-0.2); Platelet Count 464 K/mm3 (150-400); RDW Coefficient Variation 19.3 % (11.7-14.2); RDW Standard Deviation 59.9 fL (35.1-46.3); Red Blood Cell Count 3.56 M/mm3 (3.80-5.20); White Blood Cell Count 11.06 K/mm3 (4.00-11.30)
--- NOTE | 2023-06-12 06:16 | NUR ---
SHIFT SUMMARY PT RESTED T/O THE SHIFT. DENIES ANY PAIN DURING THE SHIFT. ESTRADA DRAINING TO GRAVITY, YELLOW URINE. PT STILL HAS EDEMA TO ALL EXT'S. PT WORE O2 ALL NIGHT. PT HAD A BOWEL MOVEMENT TONIGHT. PT HAS BEEN TAKEN LASIX. NO OTHER CONCERNS AT THIS TIME. CALL LIGHT WITHIN REACH
[2023-06-12 06:39] LABS: Albumin, Blood 1.9 g/dL (3.4-5.0); Anion Gap 3 mmol/L (6-16); Blood Urea Nitrogen 52 mg/dL (8-24); Bun/Creatinine Ratio 24.5 (12.0-20.0); CO2, Blood 27 mmol/L (21-32); Calcium, Blood 8.2 mg/dL (8.5-10.1); Chloride, Blood 105 mmol/L (98-108); Creatinine, Blood 2.12 mg/dL (0.40-1.00); Glomerular Filtration Rate 23 (60-); Glucose, Blood 162 mg/dL (70-99); Magnesium, Blood 1.9 mg/dL (1.6-2.4); Phosphorus, Blood 3.9 mg/dL (2.5-4.9); Potassium, Blood 4.5 mmol/L (3.5-5.5); Sodium, Blood 135 mmol/L (136-145)
[2023-06-12 07:23] VITALS: BP 132/70
[2023-06-12] MEDS ORDERED: Bumetanide 0.25 MG/ML 4ML ViaL IV SCH (09:00)
[2023-06-12 15:02] VITALS: BP 138/79
--- NOTE | 2023-06-12 19:06 | NUR ---
SHIFT SUMMARY S/P HYPOVOLEMIC SHOCK (RESOLVED), FLUID OVERLOAD BUT ON DIURETICS WHICH WAS INCREASED THIS AM BY NEPHROLOGY, PT ABLE TO GET UP TO CHAIR TODAY FOR PART OF THE SHIFT. NO ACUTE EVENTS THIS SHIFT, CALL LIGHT IN REACH.
[2023-06-12 19:11] VITALS: BP 131/63
[2023-06-13 03:31] VITALS: BP 116/66
[2023-06-13 06:58] LABS: BASOPHILS ABSOLUTE AUTO 0.13 K/mm3 (0.00-0.23); BASOPHILS PERCENT AUTO 1 % (0-2); EOSINOPHILS ABSOLUTE AUTO 0.38 K/mm3 (0.00-0.68); EOSINOPHILS PERCENT AUTO 4 % (0-6); Hematocrit 29.8 % (33.0-51.0); Hemoglobin 9.2 g/dL (11.5-16.0); IMMATURE GRAN ABSOLUTE AUTO 0.02 K/mm3 (0.00-0.10); IMMATURE GRAN PERCENT AUTO 0 % (0-1); LYMPHOCYTES ABSOLUTE AUTO 2.69 K/mm3 (0.84-5.20); LYMPHOCYTES PERCENT AUTO 28 % (21-46); MONOCYTES ABSOLUTE AUTO 1.71 K/mm3 (0.16-1.47); MONOCYTES PERCENT AUTO 18 % (4-13); Mean Corpuscular HGB 26.2 pg (26.0-34.0); Mean Corpuscular HGB Conc 30.9 g/dL (31.5-36.5); Mean Corpuscular Volume 85 fL (80-100); Mean Platelet Volume 9.7 fL (9.1-12.4); NEUTROPHILS ABSOLUTE AUTO 4.66 K/mm3 (1.96-9.15); NEUTROPHILS PERCENT AUTO 49 % (41-73); NRBC ABSOLUTE 0.24 K/mm3 (0.00-0.02); NRBC Auto 2.5 /100 WBC (0.0-0.2); Platelet Count 427 K/mm3 (150-400); RDW Standard Deviation 59.1 fL (35.1-46.3); Red Blood Cell Count 3.51 M/mm3 (3.80-5.20); White Blood Cell Count 9.59 K/mm3 (4.00-11.30)
[2023-06-13 07:11] LABS: Albumin, Blood 1.8 g/dL (3.4-5.0); Anion Gap 0 mmol/L (6-16); Blood Urea Nitrogen 49 mg/dL (8-24); Bun/Creatinine Ratio 26.1 (12.0-20.0); CO2, Blood 33 mmol/L (21-32); Calcium, Blood 8.2 mg/dL (8.5-10.1); Chloride, Blood 105 mmol/L (98-108); Creatinine, Blood 1.88 mg/dL (0.40-1.00); Glomerular Filtration Rate 27 (60-); Glucose, Blood 81 mg/dL (70-99); Magnesium, Blood 1.8 mg/dL (1.6-2.4); Phosphorus, Blood 3.6 mg/dL (2.5-4.9); Potassium, Blood 4.2 mmol/L (3.5-5.5); Sodium, Blood 138 mmol/L (136-145)
[2023-06-13 07:40] VITALS: BP 129/60
[2023-06-13] MEDS ORDERED: Metolazone 5 MG Tab PO SCH (09:00)
[2023-06-13 15:47] VITALS: BP 109/76
[2023-06-13 19:17] VITALS: BP 103/87
--- NOTE | 2023-06-13 19:20 | NUR ---
SHIFT SUMMARY S/P HYPOVOLEMIC SHOCK (RESOLVED), FLUID OVERLOAD AND TAKING DIURETICS PER NEPHROLOGY, UP TO CHAIR FOR LUNCH BUT UNABLE TO TOLERATE IT FOR LONG, UPDATED HER WEIGHT TODAY, SIGNIFICANT URINE OUTPUT D/T DIURETICS. NO OTHER EVENTS THIS SHIFT, CALL LIGHT IN REACH.
[2023-06-14 04:39] VITALS: BP 118/87
[2023-06-14 05:37] LABS: Hematocrit 31.1 % (33.0-51.0); Hemoglobin 9.5 g/dL (11.5-16.0)
[2023-06-14 06:17] LABS: Albumin, Blood 1.9 g/dL (3.4-5.0); Anion Gap 0 mmol/L (6-16); Blood Urea Nitrogen 48 mg/dL (8-24); Bun/Creatinine Ratio 27.9 (12.0-20.0); CO2, Blood 34 mmol/L (21-32); Calcium, Blood 8.7 mg/dL (8.5-10.1); Chloride, Blood 101 mmol/L (98-108); Creatinine, Blood 1.72 mg/dL (0.40-1.00); Glomerular Filtration Rate 30 (60-); Glucose, Blood 128 mg/dL (70-99); Magnesium, Blood 1.7 mg/dL (1.6-2.4); Phosphorus, Blood 3.6 mg/dL (2.5-4.9); Potassium, Blood 4.2 mmol/L (3.5-5.5); Sodium, Blood 135 mmol/L (136-145)
--- NOTE | 2023-06-14 06:21 | NUR ---
SHIFT SUMMARY NO ACUTE CHANGES NOTED THROUGH THE NIGHT, A&O X3, VSS, RA, OFELIA PO, SEAN PATENT, Q2 TURNS PRN, TYLENOL GIVEN FOR PAIN, ENC TO ELEVATE EXTREMITIES, IN THIS AM, RESTING QUIETLY IN BED, RESP UNLABORED, WCTM & REPORT, CALL LIGHT IN REACH
--- NOTE | 2023-06-14 07:07 | NUR ---
LATE ENTRY. WOUND CARE. 06/14/23 AT APPROX 0400 THIS RN CHANGED PT'S FOOT ULCER DRESSING ON PT'S LEFT HEEL. WOUND CLEANSED WITH WOUND CLEANSER, DRIED WITH GAUZE. PLACED NON ADHERANT PAD, GAUZE 4X4S, WRAPPED WITH KERLEX, AND [place] BANDAGE. DISCUSSED DRESSING CHANGE WITH PT'S PRIMARY NURSE BETHANIE KERN. PT TOLERATED WELL WITHOUT COMPLAINTS.
[2023-06-14 07:35] VITALS: BP 129/65
[2023-06-14] MEDS ORDERED: Bumetanide 0.25 MG/ML 4ML ViaL IV SCH (09:00)
[2023-06-14 15:32] VITALS: BP 124/62
--- NOTE | 2023-06-14 17:28 | NUR ---
DISCHARGE PT PICKED UP BY TRANSPORT JUST AFTER 1699, REPORT CALLED TO NR
== END 2023-06-14 17:22 | DRG 377 ==
LOC: ER 22:20 → SURS 06-03 01:07 → ICUE 06-03 01:07 → SURS 06-03 01:07 → ICUE 06-03 01:51 → PCU 06-07 15:18 → SURS 06-09 00:44
PROVIDERS: Emergency Medicine; Family Medicine; Internal Medicine; Internal Medicine Gastroenterology; Internal Medicine Nephrology; Student in an Organized Health Care Education/Training Program; ADMIT Internal Medicine
PROC: 3E033XZ Introduction of Vasopressor into Peripheral Vein, Percutaneous Approach (ICD-10-PCS; 2023-06-03)
PROC: 30233N1 Transfusion of Nonautologous Red Blood Cells into Peripheral Vein, Percutaneous Approach (ICD-10-PCS; 2023-06-04)
PROC: 0DB68ZX Excision of Stomach, Via Natural or Artificial Opening Endoscopic, Diagnostic (ICD-10-PCS; 2023-06-05)
PROC: 0DB98ZX Excision of Duodenum, Via Natural or Artificial Opening Endoscopic, Diagnostic (ICD-10-PCS; principal; 2023-06-05 07:00)
PROC: 0DJD8ZZ Inspection of Lower Intestinal Tract, Via Natural or Artificial Opening Endoscopic (ICD-10-PCS; 2023-06-07)
DX: K25.4 Chronic or unspecified gastric ulcer with hemorrhage (principal); G92.8 Other toxic encephalopathy; I21.A1 Myocardial infarction type 2; R57.1 Hypovolemic shock; I50.33 Acute on chronic diastolic (congestive) heart failure; N18.4 Chronic kidney disease, stage 4 (severe); I48.20 Chronic atrial fibrillation, unspecified; D62 Acute posthemorrhagic anemia; K81.0 Acute cholecystitis; E87.20 Acidosis, unspecified; E87.1 Hypo-osmolality and hyponatremia; N17.9 Acute kidney failure, unspecified; B37.81 Candidal esophagitis; K26.4 Chronic or unspecified duodenal ulcer with hemorrhage; K64.8 Other hemorrhoids; K64.4 Residual hemorrhoidal skin tags; E03.9 Hypothyroidism, unspecified; E10.22 Type 1 diabetes mellitus with diabetic chronic kidney disease; I25.10 Atherosclerotic heart disease of native coronary artery without angina pectoris; K57.30 Diverticulosis of large intestine without perforation or abscess without bleeding; E87.5 Hyperkalemia; I11.0 Hypertensive heart disease with heart failure; E10.43 Type 1 diabetes mellitus with diabetic autonomic (poly)neuropathy; K31.84 Gastroparesis; E86.0 Dehydration; K52.9 Noninfective gastroenteritis and colitis, unspecified; K86.81 Exocrine pancreatic insufficiency; D63.1 Anemia in chronic kidney disease; F41.9 Anxiety disorder, unspecified; F32.A Depression, unspecified; G89.29 Other chronic pain; I25.2 Old myocardial infarction; Z90.81 Acquired absence of spleen; Z88.8 Allergy status to other drugs, medicaments and biological substances; Z79.02 Long term (current) use of antithrombotics/antiplatelets; Z79.01 Long term (current) use of anticoagulants; Z95.5 Presence of coronary angioplasty implant and graft; Z95.828 Presence of other vascular implants and grafts; Z11.52 Encounter for screening for COVID-19; Z87.891 Personal history of nicotine dependence; Z79.4 Long term (current) use of insulin; Z79.890 Hormone replacement therapy; Z85.42 Personal history of malignant neoplasm of other parts of uterus
CPT/HCPCS: 0241U; 36415; 36430; 36556; 70450; 71045; 74177; 76705; 80048; 80053; 80069; 81001; 82274; 82607; 82728; 82746; 82803; 82947; 83540; 83550; 83605; 83690; 83735; 83880; 84100; 84439; 84443; 84481; 84484; 85014; 85018; 85025; 85027; 85610; 85730; 86850; 86900; 86901; 86923; 87040; 87507; 88305; 88342; 93005; 93010; 93306; 94760; 94762; 96365; 96367; 96375-59; 97110; 97162; 97165; 97530; 97535; 99285-25; A9270; C1751; C9113; J0171; J0692; J0881; J1200; J1430; J1815; J2001; J2371; J2704; J3010; J3370; J7030; J7050; J7060; J7120; P9016; P9047; P9612; Q9967

== ENCOUNTER 2023-06-20 08:29 | Inpatient (IN) | payer OTHER ==
[~2023-06-20] VITALS: Ht 165.1 cm; Wt 89.9 kg
[~2023-06-20 08:29] MED LIST changes: +Carvedilol12.5 MG PO; +NOVOLOG FL100 UNIT/3
[2023-06-20 09:03] LABS: BASOPHILS ABSOLUTE AUTO 0.18 K/mm3 (0.00-0.23); BASOPHILS PERCENT AUTO 1 % (0-2); EOSINOPHILS ABSOLUTE AUTO 0.53 K/mm3 (0.00-0.68); EOSINOPHILS PERCENT AUTO 4 % (0-6); Hematocrit 33.7 % (33.0-51.0); Hemoglobin 10.7 g/dL (11.5-16.0); IMMATURE GRAN ABSOLUTE AUTO 0.08 K/mm3 (0.00-0.10); IMMATURE GRAN PERCENT AUTO 1 % (0-1); LYMPHOCYTES ABSOLUTE AUTO 2.12 K/mm3 (0.84-5.20); LYMPHOCYTES PERCENT AUTO 14 % (21-46); MONOCYTES ABSOLUTE AUTO 1.86 K/mm3 (0.16-1.47); MONOCYTES PERCENT AUTO 12 % (4-13); Mean Corpuscular HGB 25.7 pg (26.0-34.0); Mean Corpuscular HGB Conc 31.8 g/dL (31.5-36.5); Mean Corpuscular Volume 81 fL (80-100); Mean Platelet Volume 11.1 fL (9.1-12.4); NEUTROPHILS ABSOLUTE AUTO 10.25 K/mm3 (1.96-9.15); NEUTROPHILS PERCENT AUTO 68 % (41-73); NRBC ABSOLUTE 0.19 K/mm3 (0.00-0.02); NRBC Auto 1.3 /100 WBC (0.0-0.2); Platelet Count 373 K/mm3 (150-400); RDW Coefficient Variation 19.9 % (11.7-14.2); RDW Standard Deviation 57.2 fL (35.1-46.3); Red Blood Cell Count 4.16 M/mm3 (3.80-5.20); White Blood Cell Count 15.02 K/mm3 (4.00-11.30)
[2023-06-20 09:38] LABS: Source, Urine Clean Catch
[2023-06-20 09:39] LABS: Albumin/Globulin Ratio 0.5 (0.8-1.8); Bilirubin, Total 0.5 mg/dL (0.1-1.0); Bun/Creatinine Ratio 26.6 (12.0-20.0); Calcium, Blood 8.6 mg/dL (8.5-10.1); Creatinine, Blood 1.43 mg/dL (0.40-1.00); Globulin, Blood 3.9 g/dL (2.2-4.0); Potassium, Blood 4.2 mmol/L (3.5-5.5); Total Protein, Blood 5.9 g/dL (6.4-8.2)
[2023-06-20 09:45] LABS: Appearance, Urine Clear (Clear); Bilirubin, Urine Neg (Neg); Blood, Urine Neg (Neg); Color, Urine Yellow (P-Yellow); Glucose Qualitative, Urine Neg (Neg); Ketones, Urine Neg (Neg); Leukocyte Esterase, Urine Neg (Neg); Nitrite, Urine Neg (Neg); Protein, Urine 2+ (Neg); Urobilinogen, Urine NORM (Normal)
[2023-06-20] MEDS ORDERED: Aspir 8181 MG PO (09:52)
[2023-06-20 09:53] LABS: Squamous Epithelial Cells Few /hpf (Few); White Blood Cells, Urine 0-2 /hpf (0-5)
[2023-06-20] MEDS ORDERED: METO5 PO (09:53)
[2023-06-20 09:54] LABS: Bacteria Rare /hpf
[2023-06-20] MEDS ORDERED: BUME2 PO (09:55)
[2023-06-20] MEDS ORDERED: PANT40 PO (09:56)
[2023-06-20] MEDS ORDERED: CREON DR 12,001 EACH PO (09:57)
[2023-06-20 10:19] LABS: Base Excess Venous 19.5 mmol/L; Bicarbonate Venous 41.5 mmol/L (24.0-30.0); pH Blood Venous 7.51 (7.34-7.37)
[2023-06-20 11:00] LABS: Free Thyroxine 1.77 ng/dL (0.70-1.60); Triiodothyronine, Free 1.61 pg/mL (2.18-3.98)
[2023-06-20 11:35] LABS: Influenza A, PCR NEGATIVE (NEGATIVE); Influenza B, PCR NEGATIVE (NEGATIVE); Resp Syncytial Virus, PCR NEGATIVE (NEGATIVE); SARS-Cov-2 (COVID-19) PCR, MMC NEGATIVE (NEGATIVE)
[2023-06-20] MEDS ORDERED: FLU VACC QS2023-24(6MOS UP)/PF 60 MCG/0.5 ML SYRINGE IM ONE (11:35)
[2023-06-20] MEDS ORDERED: Acetaminophen 325 MG TABLET PO PRN (11:50)
[2023-06-20] MEDS ORDERED: dilTIAZem HCL 120 MG CAP.CD PO SCH (12:00)
[2023-06-20] MEDS ORDERED: Amylase/Lipase/Protease DR Cap 12,000 PO SCH (12:30)
[2023-06-20 13:46] VITALS: BP 124/75
[2023-06-20 16:18] VITALS: BP 125/76
[2023-06-20] MEDS ORDERED: Pantoprazole Sodium 40 MG Tab PO SCH (16:30)
[2023-06-20] MEDS ORDERED: Insulin Human Lispro 100 Units/ML 3ML Syringe SC SCH (16:30)
[2023-06-20 16:51] LABS: Bun/Creatinine Ratio 26.4 (12.0-20.0); Calcium, Blood 8.4 mg/dL (8.5-10.1); Creatinine, Blood 1.48 mg/dL (0.40-1.00); Potassium, Blood 4.2 mmol/L (3.5-5.5)
[2023-06-20] MEDS ORDERED: Carvedilol 6.25 MG Tab PO SCH (17:00)
[2023-06-20] MEDS ORDERED: Sodium Chloride 1 GM TAB PO ONE (17:45)
[2023-06-20] MEDS ORDERED: Bumetanide 1 MG Tab PO SCH (18:00)
--- NOTE | 2023-06-20 19:29 | NUR ---
SHIFT SUMMARY PT ADMITTED THIS SHIFT. AXO, PLEASANT AND COOPERATIVE WITH CARE THOUGH [place] AND FALLS ASLEEP QUICKLY AND SLEEPING FREQUENTLY. PT STATES THAT SHE LIKES TO SLEEP DURING THE DAY BUT STAY UP AT NIGHT. UPON ARRIVAL, PT HAD OVER 1500 ML RETAINED. PT UP TO BSC WITH VERTIGO TO VOID ABOUT 900ML OUT. PVR REVEALED GREATER THAN 800ML RETAINED. DR MC NOTIFIED, ESTRADA PLACED AT 1400 WITH OVER 1325ML OUT, CLEAR YELLOW URINE. PT INCONTINENT OF LIQUID MUCUS STOOL X2 SINCE ARRIVAL, SAMPLE SENT TO LAB TO R/O C-DIFF. PT RESTING COMFORTABLY AT THIS TIME ON 2L. BED IN LOW POSITION, CALL LIGHT WITHIN REACH. MED REC STILL NEEDS TO BE COMPLETED. REPORT GIVEN TO LENDING CONSULTANT NURSE WHO ASSUMES CARE AT THIS TIME.
[2023-06-20 19:48] LABS: C DIFFICILE DNA POSITIVE (Negative)
[2023-06-20 20:10] VITALS: BP 116/67
[2023-06-20] MEDS ORDERED: Apixaban 5 MG Tab PO SCH (21:00)
[2023-06-20] MEDS ORDERED: Pravastatin Sodium 20 MG Tab PO SCH (21:00)
[2023-06-20] MEDS ORDERED: CloNIDine 0.1 MG Tab PO SCH (21:00)
[2023-06-21 02:11] VITALS: BP 122/70
--- NOTE | 2023-06-21 05:56 | NUR ---
SHIFT SUMMARY. PATIENT IS ALERT AND ORIENTED TO PERSON, PLACE, SELF. PATIENT VERY SLEEPY BRGINNING OF SHIFT; AROUSABLE AND ABLE TO TAKE PO MEDICATIONS. PATIENT AWAKE AND UP AROUND 0100 THIS MORNING. PATIENT IS ABLE TO MAKE HER NEEDS KNOWN AND CALLS APPROPRIATELY. PATIENT STATED TO THIS RN THAT SHE KNOWS WHEN SHE NEEDS TO USE THE BATHROOM TO HAVE A BM; PATIENT WOULD CALL TO REPORT THAT SHE HAD "POOPED HER PANTS AND NEEDED CHANGED" PATIENT INCONTINENT T/O THIS SHIFT. PATIENT IS POSITIVE FOR C-DIFF; CONTACT ENTERIC ISOLATION PRECAUTIONS. TELE IS ON; PATIENT HAD AN 8 BEAT RUN OF RVR-PATIENT ASYMPTOMATIC. HOSPITALIST NOTIFIED; NO NEW ORDERS OR CHANGES AT THIS TIME. PATIENTS BED IS LOCKED IN THE LOWEST POSITION WITH CALL LIGHT IN REACH. NO S/S OF DISTRESS NOTED. CARE IS ONGOING.
[2023-06-21] MEDS ORDERED: Levothyroxine Sodium 0.1 MG Tab PO SCH (06:00)
[2023-06-21] MEDS ORDERED: Vancomycin HCl 125 MG Cap PO SCH (06:00)
[2023-06-21 06:27] LABS: BASOPHILS ABSOLUTE AUTO 0.14 K/mm3 (0.00-0.23); BASOPHILS PERCENT AUTO 1 % (0-2); EOSINOPHILS ABSOLUTE AUTO 0.13 K/mm3 (0.00-0.68); EOSINOPHILS PERCENT AUTO 1 % (0-6); Hematocrit 30.3 % (33.0-51.0); Hemoglobin 9.5 g/dL (11.5-16.0); IMMATURE GRAN ABSOLUTE AUTO 0.08 K/mm3 (0.00-0.10); IMMATURE GRAN PERCENT AUTO 1 % (0-1); LYMPHOCYTES ABSOLUTE AUTO 2.17 K/mm3 (0.84-5.20); LYMPHOCYTES PERCENT AUTO 13 % (21-46); MONOCYTES ABSOLUTE AUTO 1.58 K/mm3 (0.16-1.47); MONOCYTES PERCENT AUTO 10 % (4-13); Mean Corpuscular HGB 25.4 pg (26.0-34.0); Mean Corpuscular HGB Conc 31.4 g/dL (31.5-36.5); Mean Corpuscular Volume 81 fL (80-100); Mean Platelet Volume 10.9 fL (9.1-12.4); NEUTROPHILS ABSOLUTE AUTO 12.19 K/mm3 (1.96-9.15); NEUTROPHILS PERCENT AUTO 75 % (41-73); NRBC ABSOLUTE 0.12 K/mm3 (0.00-0.02); NRBC Auto 0.7 /100 WBC (0.0-0.2); Platelet Count 311 K/mm3 (150-400); RDW Coefficient Variation 19.8 % (11.7-14.2); RDW Standard Deviation 58.4 fL (35.1-46.3); Red Blood Cell Count 3.74 M/mm3 (3.80-5.20); White Blood Cell Count 16.29 K/mm3 (4.00-11.30)
[2023-06-21 06:55] LABS: Albumin, Blood 1.9 g/dL (3.4-5.0); Albumin/Globulin Ratio 0.5 (0.8-1.8); Bilirubin, Total 0.6 mg/dL (0.1-1.0); Bun/Creatinine Ratio 27.1 (12.0-20.0); Calcium, Blood 7.9 mg/dL (8.5-10.1); Creatinine, Blood 1.66 mg/dL (0.40-1.00); Globulin, Blood 3.7 g/dL (2.2-4.0); Potassium, Blood 4.4 mmol/L (3.5-5.5); Total Protein, Blood 5.6 g/dL (6.4-8.2)
[2023-06-21] MEDS ORDERED: Lactated Ringer's 1,000 ML IV SCH ×2 (08:05→18:00)
[2023-06-21 08:17] VITALS: BP 92/54
[2023-06-21] MEDS ORDERED: Venlafaxine HCl 75 MG CapCR PO SCH (09:00)
[2023-06-21] MEDS ORDERED: Calcium Carbonate 1,250 MG TABLET PO SCH (09:00)
[2023-06-21] MEDS ORDERED: Losartan Potassium 50 MG Tab PO SCH (09:00)
[2023-06-21] MEDS ORDERED: Potassium Chloride 20 MEQ TabCR PO SCH (09:00)
[2023-06-21] MEDS ORDERED: Insulin Glargine-Yfgn 100 Unit/mL 3 ML SYR SC SCH (09:00)
[2023-06-21] MEDS ORDERED: Aspirin 81 MG TabEC PO SCH (09:00)
[2023-06-21] MEDS ORDERED: Insulin Human Lispro 100 Units/ML 3ML Syringe SC SCH (11:30)
--- NOTE | 2023-06-21 12:01 | NUR ---
CALLED CALLED TO NOTIFY OF PT'S BLOOD SUGAR OF 477.
--- NOTE | 2023-06-21 12:10 | NUR ---
CALLED CALLED TO NOTIFY OF PT'S BLOOD SUGAR OF 477. PT ASYMPTOMATIC. NO NEW ORDERS GIVEN. THIS NURSE TO ADMINISTER HUMALOG PER EXISTING ORDERS IN EMAR.
[2023-06-21 16:06] VITALS: BP 92/47
[2023-06-21 16:23] VITALS: BP 92/47
[2023-06-21] MEDS ORDERED: Lactobacil 2-S.Thermo-Bifido 1 1 Cap PO SCH (17:00)
[2023-06-21] MEDS ORDERED: Lactated Ringer's 500 ML IV SCH (17:03)
--- NOTE | 2023-06-21 17:03 | NUR ---
CALLED CALLED TO NOTIFY HIM OF PT'S BP, MAP, AND BLOOD SUGAR. PER PROVIDER, NEW BOLUS ORDER GIVEN AND CONT TO FOLLOW CURRENT ORDER FOR BLOOD SUGAR. PT ASYMPTOMATIC AT THIS TIME.
--- NOTE | 2023-06-21 18:03 | NUR ---
SHIFT SUMMARY PT CONT TO BE A&O TO SELF AND PLACE ONLY. PT HYPOTENSIVE TOWARDS END OF SHIFT AND MAP 62. NOTIFIED. SEE PREVIOUS NOTE. LR BOLUS GIVEN AND COMPLETED. LR NOW INFUSING @ 200 MLS/HR. PT CONT TO HAVE ELEVATED BLOOD SUGAR. THIS NURSE EDUCATED PT'S DAUGHTER EXTENSIVELY ON CONSISTENT CARB DIET. NO OTHER ACUTE CHANGES THIS SHIFT. CALL LIGHT WITHIN REACH AND PT ABLE TO MAKE NEEDS KNOWN.
[2023-06-21 18:05] VITALS: BP 115/61
[2023-06-21 20:52] VITALS: BP 109/91
--- NOTE | 2023-06-22 05:23 | NUR ---
SHIFT SUMMARY PT A&O TO SELF AND SURROUNDINGS. PT IS SOMNOLENT BUT AROUSABLE AND ABLE TO TAKE HS MEDS WITHOUT CONCERN. PT RECEIVING LR AT 200ML/HR AND IS TOLERATING WELL. PT SLEPT MOST OF SHIFT WITH EYES CLOSED AND RESPIRATIONS EVEN AND UNLABORED. VSS, NO COMPLAINTS OF CP OR SOB. NO ACUTE EVENTS AT THIS TIME. PT LEFT IN A POSITION OF SAFETY WITH PROPER FALL PRECAUTIONS IN PLACE AND CALL LIGHT IN REACH.
[2023-06-22 05:26] VITALS: BP 130/91
[2023-06-22 07:20] LABS: Bun/Creatinine Ratio 24.3 (12.0-20.0); Creatinine, Blood 2.22 mg/dL (0.40-1.00); Potassium, Blood 3.6 mmol/L (3.5-5.5)
[2023-06-22 07:51] VITALS: BP 145/89
[2023-06-22] MEDS ORDERED: Insulin Glargine-Yfgn 100 Unit/mL 3 ML SYR SC SCH (09:00)
--- NOTE | 2023-06-22 10:58 | NUR ---
Pt. is awake in a recliner when she welcomes my visit with a smile. Spouse is present at the bedside. Facilitated a life review update since the Pts. previous visit. Pt. displays evidence of being somnolent. Pt. and spouse verbalize that she now has additional kidney infection. Listen with emapthy and a calming presence. Prayed with the Pt. and Spouse. During the prayer the Pt. became somnolent. Spouse verbalized gratitude for the spiritual care visit.
[2023-06-22] MEDS ORDERED: Insulin Human Lispro 100 Units/ML 3ML Syringe SC SCH (12:30)
[2023-06-22 14:58] LABS: Bun/Creatinine Ratio 24.3 (12.0-20.0); Calcium, Blood 7.9 mg/dL (8.5-10.1); Creatinine, Blood 2.06 mg/dL (0.40-1.00); Potassium, Blood 3.6 mmol/L (3.5-5.5)
[2023-06-22 16:06] VITALS: BP 121/73
--- NOTE | 2023-06-22 16:39 | NUR ---
Introduced self as PC RN and what PC is. Family is welcoming of visit. Quick review of care goals. Current focus is for pt to regain strength and be able to participate in PT/OT. PC will remain available for support.
--- NOTE | 2023-06-22 19:18 | NUR ---
SHIFT SUMMARY: PT A/O X 3, STANDBY ASSIST WITH GB/WALKER TO CHAIR. PT HAS HAD NO EPISODES OF DIARRHEA TODAY. ESTRADA PATENT AND DRAINING CLEAR YELLOW URINE. DAUGHTER AND SPOUSE IN TO VISIT. DAUGHTER REPORTS SHE DOES NOT WANT MOM TO GO BACK TO [facility] BUT PLANS TO HAVE MOM COME HOME WITH HOME HEALTH AND SHE WILL ASSIST WITH HER REHAB. FLOATED HEELS TODAY DUE TO SORES TO LEFT HEEL. PT HAD NO COMPLAINTS THROUGHOUT THE DAY. LR CONTINUES AT 150 ML PER HOUR.
[2023-06-22 19:53] VITALS: BP 106/70
[2023-06-23] MEDS ORDERED: Melatonin 5 MG Tablet PO SCH (04:00)
[2023-06-23] MEDS ORDERED: GuaiFENesin 600 MG TabCR PO SCH (04:30)
--- NOTE | 2023-06-23 04:34 | NUR ---
HARD COPY SHIFT SUMMARY IN CHART, VITALS WITHHELD TO PROMOTE UNINTERUPTED REST
[2023-06-23 06:02] LABS: BASOPHILS ABSOLUTE AUTO 0.13 K/mm3 (0.00-0.23); BASOPHILS PERCENT AUTO 1 % (0-2); EOSINOPHILS ABSOLUTE AUTO 0.47 K/mm3 (0.00-0.68); EOSINOPHILS PERCENT AUTO 5 % (0-6); Hematocrit 26.9 % (33.0-51.0); Hemoglobin 8.7 g/dL (11.5-16.0); IMMATURE GRAN ABSOLUTE AUTO 0.03 K/mm3 (0.00-0.10); IMMATURE GRAN PERCENT AUTO 0 % (0-1); LYMPHOCYTES ABSOLUTE AUTO 3.19 K/mm3 (0.84-5.20); LYMPHOCYTES PERCENT AUTO 31 % (21-46); MONOCYTES ABSOLUTE AUTO 1.59 K/mm3 (0.16-1.47); MONOCYTES PERCENT AUTO 16 % (4-13); Mean Corpuscular HGB 25.4 pg (26.0-34.0); Mean Corpuscular HGB Conc 32.3 g/dL (31.5-36.5); Mean Corpuscular Volume 78 fL (80-100); Mean Platelet Volume 10.2 fL (9.1-12.4); NEUTROPHILS ABSOLUTE AUTO 4.84 K/mm3 (1.96-9.15); NEUTROPHILS PERCENT AUTO 47 % (41-73); NRBC ABSOLUTE 0.04 K/mm3 (0.00-0.02); NRBC Auto 0.4 /100 WBC (0.0-0.2); Platelet Count 298 K/mm3 (150-400); RDW Coefficient Variation 19.5 % (11.7-14.2); RDW Standard Deviation 55.3 fL (35.1-46.3); Red Blood Cell Count 3.43 M/mm3 (3.80-5.20); White Blood Cell Count 10.25 K/mm3 (4.00-11.30)
[2023-06-23] MEDS ORDERED: NS 1,000 ML IV SCH (07:00)
[2023-06-23 07:07] LABS: Albumin/Globulin Ratio 0.6 (0.8-1.8); Bilirubin, Total 0.6 mg/dL (0.1-1.0); Creatinine, Blood 1.8 mg/dL (0.40-1.00); Globulin, Blood 3.4 g/dL (2.2-4.0); Potassium, Blood 3.5 mmol/L (3.5-5.5); Total Protein, Blood 5.4 g/dL (6.4-8.2)
[2023-06-23 07:09] VITALS: BP 146/77
[2023-06-23] MEDS ORDERED: Calcium Carbonate 1,250 MG TABLET PO SCH (09:00)
[2023-06-23] MEDS ORDERED: Venlafaxine HCl 75 MG CapCR PO SCH (09:00)
[2023-06-23 10:17] VITALS: BP 154/91
[2023-06-23] MEDS ORDERED: BASAGLAR K100 UNIT/6 SC (14:39)
[2023-06-23] MEDS ORDERED: ELIQUIS5 M2 PO (14:39)
[2023-06-23] MEDS ORDERED: VANCOCIN HCL125 MG PO (14:40)
[2023-06-23] MEDS ORDERED: VISBIOME 112.51 EACH PO (14:40)
[2023-06-23] MEDS ORDERED: HUMALOG KW100 UNIT/1 SC (14:40)
[2023-06-23 17:20] VITALS: BP 121/59
--- NOTE | 2023-06-23 19:33 | NUR ---
DISCHARGE NOTE- PT AND FAMILY WERE GIVEN VERBAL AND WRITTEN DISCHARGE INSTRUCTIONS AND ACKNOWLEDGED UNDERSTANDING OF THEM. PER MD ORDER BLADDER TRAINING WAS ATTEMPTED, PT DID NOT FEEL THE IRGE TO URINATE. SHE ONLY MADE 200ML OF URINBE FROM THE TIME OF D ORDER TO THE TIME OF DC OF THE ESTRADA. PT AND FAMILY LEFT AFTER ESTRADA WAS DC'D, PT DID NOT VOID PRIOR TO DISCHARGE. SHE STATED HE NEVER HAS PROBLEMS GOING AFTE RHER CATHETER IS REMOVED. PT WAS UNWILLING TO WAIT FOR HOURS UNTIL SHE WAS ABLE TO VOID. IV AND TELE DC'D PRIOR TO DISCHARGE. PT ESCORTED OUT VIA WC BY THE WATER MAIN INSPECTOR. NO S&S OF DISTRESS NOTED AT THE TIME OF DISCHARGE.
== END 2023-06-23 17:42 | disposition home health service (06) | DRG 917 ==
LOC: ER 08:29 → MEDS 08:30 → ENPENDDIS 06-23 13:23 → MEDS 06-23 17:42
PROVIDERS: Emergency Medicine; Family Medicine; Student in an Organized Health Care Education/Training Program; ADMIT Internal Medicine
DX: T43.211A Poisoning by selective serotonin and norepinephrine reuptake inhibitors, accidental (unintentional), initial encounter (principal); G93.41 Metabolic encephalopathy; I21.A1 Myocardial infarction type 2; E87.1 Hypo-osmolality and hyponatremia; D69.3 Immune thrombocytopenic purpura; N18.4 Chronic kidney disease, stage 4 (severe); E87.3 Alkalosis; A04.72 Enterocolitis due to Clostridium difficile, not specified as recurrent; I50.42 Chronic combined systolic (congestive) and diastolic (congestive) heart failure; Z66 Do not resuscitate; T50.1X1A Poisoning by loop [high-ceiling] diuretics, accidental (unintentional), initial encounter; I25.10 Atherosclerotic heart disease of native coronary artery without angina pectoris; G89.29 Other chronic pain; M54.9 Dorsalgia, unspecified; E11.22 Type 2 diabetes mellitus with diabetic chronic kidney disease; E78.5 Hyperlipidemia, unspecified; F41.9 Anxiety disorder, unspecified; I48.91 Unspecified atrial fibrillation; E11.42 Type 2 diabetes mellitus with diabetic polyneuropathy; F32.A Depression, unspecified; E03.9 Hypothyroidism, unspecified; I11.0 Hypertensive heart disease with heart failure; I50.812 Chronic right heart failure; K86.89 Other specified diseases of pancreas; I36.1 Nonrheumatic tricuspid (valve) insufficiency; Z79.02 Long term (current) use of antithrombotics/antiplatelets; Z79.4 Long term (current) use of insulin; Z87.19 Personal history of other diseases of the digestive system; Z95.5 Presence of coronary angioplasty implant and graft; Z95.828 Presence of other vascular implants and grafts; Z87.891 Personal history of nicotine dependence; Z79.891 Long term (current) use of opiate analgesic; I25.2 Old myocardial infarction; Z85.41 Personal history of malignant neoplasm of cervix uteri; Z79.82 Long term (current) use of aspirin; Z87.890 Personal history of sex reassignment; Z90.81 Acquired absence of spleen; Z11.52 Encounter for screening for COVID-19; Z28.21 Immunization not carried out because of patient refusal
CPT/HCPCS: 0241U; 36415; 51702; 70450; 80048; 80053; 81001; 82803; 82947; 83036; 83935; 84300; 84439; 84443; 84481; 85025; 87324; 87493; 93005; 93010; 94760; 96360; 96361; 97116; 97161; 97530; 99285-25; A9270; G0378; J1815; J7120

== ENCOUNTER 2023-06-25 13:21 | Observation (INO) | payer OTHER ==
[~2023-06-25] VITALS: Ht 165.1 cm; Wt 86.2 kg
[~2023-06-25 13:21] MED LIST changes: +BASAGLAR K100 UNIT/6 SC; +CREON DR 12,001 EACH PO; +ELIQUIS5 M2 PO; +GABAPENTIN600 MG PO; +METO5 PO; +PANT40 PO; +VANCOCIN HCL125 MG PO; +Venlafaxine HCl75 MG PO
[2023-06-25] MEDS ORDERED: NS 1,000 ML IV ONE (13:42)
[2023-06-25] MEDS ORDERED: NS 1,000 ML IV SCH ×2 (14:20)
[2023-06-25 14:24] LABS: BASOPHILS ABSOLUTE AUTO 0.16 K/mm3 (0.00-0.23); BASOPHILS PERCENT AUTO 2 % (0-2); EOSINOPHILS ABSOLUTE AUTO 0.59 K/mm3 (0.00-0.68); EOSINOPHILS PERCENT AUTO 6 % (0-6); Hematocrit 32.3 % (33.0-51.0); Hemoglobin 10.2 g/dL (11.5-16.0); IMMATURE GRAN PERCENT AUTO 1 % (0-1); LYMPHOCYTES ABSOLUTE AUTO 3.44 K/mm3 (0.84-5.20); LYMPHOCYTES PERCENT AUTO 32 % (21-46); MONOCYTES ABSOLUTE AUTO 1.54 K/mm3 (0.16-1.47); MONOCYTES PERCENT AUTO 15 % (4-13); Mean Corpuscular HGB 25.1 pg (26.0-34.0); Mean Corpuscular HGB Conc 31.6 g/dL (31.5-36.5); Mean Corpuscular Volume 80 fL (80-100); Mean Platelet Volume 11.7 fL (9.1-12.4); NEUTROPHILS ABSOLUTE AUTO 4.82 K/mm3 (1.96-9.15); NEUTROPHILS PERCENT AUTO 45 % (41-73); NRBC ABSOLUTE 0.08 K/mm3 (0.00-0.02); NRBC Auto 0.8 /100 WBC (0.0-0.2); Platelet Count 331 K/mm3 (150-400); RDW Coefficient Variation 19.9 % (11.7-14.2); RDW Standard Deviation 56.6 fL (35.1-46.3); Red Blood Cell Count 4.06 M/mm3 (3.80-5.20); White Blood Cell Count 10.65 K/mm3 (4.00-11.30)
[2023-06-25 14:39] LABS: Albumin, Blood 2.1 g/dL (3.4-5.0); Albumin/Globulin Ratio 0.5 (0.8-1.8); Bilirubin, Total 0.5 mg/dL (0.1-1.0); Bun/Creatinine Ratio 24.3 (12.0-20.0); Calcium, Blood 7.9 mg/dL (8.5-10.1); Creatinine, Blood 1.89 mg/dL (0.40-1.00); Globulin, Blood 3.9 g/dL (2.2-4.0); Potassium, Blood 4.5 mmol/L (3.5-5.5)
[2023-06-25 14:40] LABS: Source, Urine Foley catheter
[2023-06-25] MEDS ORDERED: Ondansetron HCl 2 MG / ML 2ML Vial IV ONE (14:55)
[2023-06-25] MEDS ORDERED: FentaNYL Citrate 50 MCG/ML 2 ML Injection IV ONE (14:55)
[2023-06-25 15:00] LABS: Appearance, Urine Clear (Clear); Bilirubin, Urine Neg (Neg); Blood, Urine Neg (Neg); Color, Urine Yellow (P-Yellow); Glucose Qualitative, Urine Neg (Neg); Ketones, Urine Neg (Neg); Leukocyte Esterase, Urine Neg (Neg); Nitrite, Urine Neg (Neg); Protein, Urine 3+ (Neg); Urobilinogen, Urine NORM (Normal); pH, Urine 6.5 (5.0-8.0)
[2023-06-25 15:01] VITALS: BP 70/51
[2023-06-25 15:02] LABS: Bacteria Many /hpf; Red Blood Cells, Urine 0-2 /hpf (0-2); Squamous Epithelial Cells Few /hpf (Few)
[2023-06-25] MEDS ORDERED: Morphine Sulfate 10 MG/ML 1MLSYR IV PRN (16:05)
[2023-06-25] MEDS ORDERED: Ondansetron HCl 2 MG / ML 2ML Vial IV PRN (16:05)
--- NOTE | 2023-06-25 17:23 | NUR ---
"Spiritual Care | Comfort Care - [facility] Pt. is on comfort care, and is mostly non responsive...but rallies when she hears the voices of family and friends. Prayed over the Pt. and family. Facilitated life reiview and assisted family with communicating with staff. At an appropriate moment the spouse identified [facility] as the family's home for the Pt. Family verbalized gratitude for the spiritual care visit."
--- NOTE | 2023-06-25 17:43 | NUR ---
Spiritual Care Visit. Brought a Palliative Care Quilt for the Pt. as family are gathering at bedside in ED.
--- NOTE | 2023-06-25 19:15 | NUR ---
PT SETTLED TO ROOM. FAMILY AT BEDSIDE. ON COMFORT CARE. LYING ON RT SIDE. PT ABLE TO TALK 1-2 WORDS AT THIS TIME. REPORT TO BE GIVEN TO PAN GARCIA. CALL LITE IN REACH, BED IN LOW POSITION, FAMILY AT BEDSIDE
[2023-06-25] MEDS ORDERED: Atropine Sulfate 1% Opth Soln 2ML BTL SL PRN (23:55)
[2023-06-25] MEDS ORDERED: LORazepam 1 MG Tab PO PRN (23:55)
[2023-06-25] MEDS ORDERED: Scopolamine Hydrobromide Patch TOP PRN (23:55)
--- NOTE | 2023-06-26 04:05 | NUR ---
Shift Summary Patient is a 78 year old female admitted this evening for comfort care. Her historical diagnosis include GI Bleed, hypotension, CHF, CAD, A Fib, CKD, UTI, and AMS change. She was admitted today with hypotention. She had received 2 iron infusions today at the cancer center but felt weak and collapsed afterward. Patient has had several family members in to visit this evening. She was given was given morphine IV early in the shift for complaints of back pain. The prn medication was effective. She slept for several hours but later woke up and visited with her family and ate a snack. She is on contact precautions due to being diagnosed with C diff on Jun 20. She has a maxwell catheter that is draining yellow urine. She has an IV in her right forearm that is saline locked. She is oriented to person, place, and situation. Head of bed is elevated with side rails up x 2. Call light in reach. Family member at bedside
--- NOTE | 2023-06-26 14:00 | NUR ---
The patient is actively dying at this time. She has been exhibiting signs of her final hours since mid morning. Her pupils are fixed and dilated, she is agonally breathing, and cool to the touch. Family did arrive, and are currently at bedside. Comfort Cart delivered. Pt does not appear to be in any distress. They are all aware the patient is very close to passing. Palliative Care will remain involved.
--- NOTE | 2023-06-26 14:14 | NUR ---
Spiritual care visit conducted. Patient's family and friends are present and grieving appropriately. I conduct a life review of patient and learn of the family and friends stories centered around her. There is much laughter and tears. Patient has large gaps between breaths and is minimally responsive. SHe is very peaceful. I provide therapeutic listening, anticipatory grief support and prayer. Patient and family responded well and showed signs of being comforted.
--- NOTE | 2023-06-26 14:58 | NUR ---
PROGRESS NOTE PATIENT IN BED, UNRESPONSIVE TO STIMULI. BREATHING IS LABORED/AGONAL. EXTREMITIES ARE COOL AND CLAMY. PUPILS FIXED. FAMILY REQUESTING MEDICATION TO EASE AGONAL BREATHING. MEDICATED WITH MORPHINE AT THIS TIME.
--- NOTE | 2023-06-26 16:36 | NUR ---
SHIFT SUMMARY PATIENT IN BED WITH EYES CLOSED, AGONAL BREATHING WITH PROLONGED APNEAIC PERIODS. FAMILY PRESENT. SPIRITUAL CARE AND PALLIATIVE CARE STAFF HAVE BEEN TO SEE PATIENT AND FAMILY THIS SHIFT. FAMILY IS DECLINING TURNING AND POSITIONING FOR PATIENT. FAMILY EDUCATED ON ISOLATION PRECAUTIONS. CALL LIGHT IN REACH, FAMILY INSTRUCTED ON USE, CARES ONGOING.
--- NOTE | 2023-06-26 17:39 | NUR ---
PRONOUNCEMENT CALLED INTO ROOM BY FAMILY WHO HADN'T WITNESSED RESPIRATIONS FOR STATED 4 MINUTES. AT THIS TIME, NO RESPIRATIONS, NO AUDIBLE HEART TONES, PUPILS NON REACTIVE, NO PALPIBLE PULSE, SKIN TONE ASHEN/CYANOTIC. FAMILY PRESENT IN ROOM. CHARGE NURSE 2ND DINING CAR CONDUCTOR. DR MC NOTIFIED. FAMILY HAS YET TO PROVIDE INFORMATION REGARDING HOME FOR PICKUP. CARES ONGOING
== END 2023-06-26 17:28 ==
LOC: ER 13:21 → MEDS 13:22
PROVIDERS: Emergency Medicine; ADMIT Hospitalist
DX: Z51.5 Encounter for palliative care (principal); Z88.5 Allergy status to narcotic agent; Z88.8 Allergy status to other drugs, medicaments and biological substances; Z66 Do not resuscitate; I25.10 Atherosclerotic heart disease of native coronary artery without angina pectoris; I50.9 Heart failure, unspecified; I48.91 Unspecified atrial fibrillation; Z79.01 Long term (current) use of anticoagulants; E03.9 Hypothyroidism, unspecified; I95.9 Hypotension, unspecified; I47.20 Ventricular tachycardia, unspecified
CPT/HCPCS: 36415; 51702; 51798; 80053; 81001; 83605; 85025; 87086; 93005; 93010; 96361-59; 96374-59; 96375-59; 99285-25; A9270; J2270; J2405; J3010; J7030